=== PATIENT | male | born 1945 | race Caucasian/White ===

== ENCOUNTER → 2016-10-29 | Outpatient (CLI) | payer MEDICARE ==
[~2016-10-29] MED LIST: APIX5TAB PO; BNZ10T PO; DOCU-143 PO; FENT1PAT57 TD; FENT1PAT8 TD; FLC1T PO; FRS325T PO; FRSM20T PO; GABA-488 PO; GABA300C PO; GLIM2TAB PO; HYDR-3820 PO; HYDR1TAB66 PO; INSU100I29 SC; INSU100V5 SQ; LOSA100T28 PO; LOSA100T7 PO; MELA1TAB10 PO; METF-380 PO; METF1000 PO; METH2.5T PO; OMEP20CA12 PO; OXYC-465 PO; PRD10T PO; PRED10TA22 PO; PROP60CA PO; SIMV80TA3 PO; SPRN25T PO
--- NOTE | 2016-10-29 17:15 | Diagnostic Imaging Report ---
INDICATION: Chest tightness and chronic cough. DISCUSSION: Two views of the chest were obtained, comparison 09/09/2008. No focal consolidation, pleural fluid, or pneumothorax. Normal heart size. Postoperative changes are present within the cervical spine. IMPRESSION: 1. No acute cardiopulmonary process. Dictated by: Dictated on workstation # [id number]
== END ==
LOC: RAD 15:10
PROVIDERS: ATTEND Internal Medicine
DX: R05 Cough (principal)
CPT/HCPCS: 71020

== ENCOUNTER 2017-01-23 15:38 | Inpatient (IN) | payer MEDICARE ==
[~2017-01-23] VITALS: Ht 180.3 cm; Wt 86.2 kg
[~2017-01-23 15:38] MED LIST changes: -INSU100I29 SC; +INSU100I29 SQ
--- OUTSIDE RECORDS SUMMARY | 2017-01-23 15:43 | XMS REPORT | Continuity of Care Document ---
Author Author [facility] Organization [facility] Address Unknown Phone Unavailable Allergies Active Description Code Type Severity Reaction Onset Reported/Identified Relationship to Patient Clinical Status Yes codeine [id number] Drug Allergy Unknown N/A 08/07/2015 Yes Penicillins [id number] Drug Allergy Unknown N/A 08/07/2015 Yes Tetanus Vaccines Toxoid [id number] Drug Allergy Unknown N /A 08/07/2015 Yes Tetanus Vaccines and Toxoid [id number] Drug Allergy Unknown N/A 08/07/2015 Medications Problems Date Dx Coded Attending Type Code Diagnosis Diagnosed By 07/14/2013 OSCAR ZHONG MD Ot 250.00 DIAB REY WO COMPL, TYPE II OR UNSPEC TY 07/14/2013 OSCAR ZHONG MD Ot 272.4 HYPERLIPIDEMIA NEC/NOS 07/14/2013 OSCAR ZHONG MD Ot 285.9 ANEMIA NOS 07/14/2013 OSCAR ZHONG MD Ot 401.9 HYPERTENSION NOS 07/14/2013 OSCAR ZHONG MD Ot 456.21 ESOPH VARICE OTH DIS NOS 07/14/2013 OSCAR ZHONG MD Ot 535.41 OTHER SPECIFIED GASTRITIS, WITH HEMORRHA 07/14/2013 OSCAR ZHONG MD Ot 571.5 CIRRHOSIS OF LIVER NOS 07/14/2013 OSCAR ZHONG MD Ot 572.3 PORTAL HYPERTENSION 07/14/2013 OSCAR ZHONG MD Ot 696.1 OTHER PSORIASIS 07/14/2013 OSCAR ZHONG MD Ot 715.96 OSTEOARTHROS NOS-L/LEG 07/14/2013 OSCAR ZHONG MD Ot 789.59 OTHER ASCITES 07/14/2013 OSCAR ZHONG MD Ot E935.6 ADV EFF ANTIRHEUMATICS 07/14/2013 OSCAR ZHONG MD Ot V15.82 HISTORY OF TOBACCO USE 03/05/2014 OSCAR ZHONG MD Ot 280.9 IRON DEFIC ANEMIA NOS 03/05/2014 OSCAR ZHONG MD Ot 562.10 DIVERTICULOSIS COLON (W/O MENT OF HEMORR 03/05/2014 OSCAR ZHONG MD Ot 569.0 ANAL RECTAL POLYP 03/05/2014 OSCAR ZHONG MD Ot 600.00 HYPERTROPHY (BENIGN) OF PROSTATE W/O URI 03/05/2014 OSCAR ZHONG MD Ot V76.51 SCREEN MAL NEOP-COLON 05/03/2015 OSCAR ZHONG MD Ot V72.84 05/05/2015 OSCAR ZHONG MD, Ot V72.84 05/09/2015 GINI SILVIA CALZADA Ot M25.512 05/09/2015 GINI SILVIA CALZADA Ot M54.12 05/24/2015 GINI SILVIA CALZADA Ot M25.512 05/24/2015 SILVIA RUBALCAVA DO Ot M54.12 08/10/2015 DEVON DE SANTIAGO MD Ot D69.59 OTHER SECONDARY THROMBOCYTOPENIA 08/10/2015 DEVON DE SANTIAGO MD Ot D70.4 CYCLIC NEUTROPENIA 08/10/2015 DEVON DE SANTIAGO MD Ot E11.9 TYPE 2 DIABETES MELLITUS WITHOUT COMPLIC 08/10/2015 DEVON DE SANTIAGO MD Ot F10.21 ALCOHOL DEPENDENCE, IN REMISSION 08/10/2015 DEVON DE SANTIAGO MD Ot G83.21 MONOPLEGIA OF UPPER LIMB AFFECTING RIGHT 08/10/2015 DEVON DE SANTIAGO MD Ot K70.30 ALCOHOLIC CIRRHOSIS OF LIVER WITHOUT ASC 08/10/2015 DEVON DE SANTIAGO MD Ot R41.82 ALTERED MENTAL STATUS, UNSPECIFIED 08/10/2015 DEVON DE SANTIAGO MD Ot T42.4X1A POISONING BY BENZODIAZEPINES, ACCIDENTAL 08/10/2015 DEVON DE SANTIAGO MD Ot Z79.4 RETIREMENT (CURRENT) USE OF INSULIN 08/10/2015 DEVON DE SANTIAGO MD Ot Z98.1 ARTHRODESIS STATUS 08/13/2015 OSCAR ZHONG MD Ot D61.818 08/13/2015 OSCAR ZHONG MD Ot E11.9 08/13/2015 OSCAR ZHONG MD Ot E78.5 08/13/2015 OSCAR ZHONG MD Ot G83.21 08/13/2015 OSCAR ZHONG MD Ot I10 08/13/2015 OSCAR ZHONG MD Ot I26.92 08/13/2015 FARHEEN HAMMOND, OSCAR Duarte Ot I82.433 08/13/2015 FARHEEN HAMMOND, OSCAR Duarte Ot I82.442 08/13/2015 FARHEEN HAMMOND, OSCAR D Ot I82.493 08/13/2015 FARHEEN HAMMOND, OSCAR D Ot I82.621 08/13/2015 FARHEEN HAMMOND, OSCAR Duarte Ot K21.9 08/13/2015 FARHEEN HAMMOND, OSCAR Duarte Ot K74.4 08/13/2015 FARHEEN HAMMOND, OSCAR Duarte Ot M48.02 08/13/2015 FARHEEN HAMMOND, OSCAR Duarte Ot Z79.4 08/13/2015 FARHEEN HAMMOND, OSCAR Duarte Ot Z87.891 08/14/2015 FARHEEN HAMMOND, OSCAR Duarte Ot D61.818 08/14/2015 FRAHEEN HAMMOND, OSCAR Duarte Ot E11.9 08/14/2015 FARHEEN HAMMOND, OSCAR Duarte Ot E78.5 08/14/2015 FARHEEN HAMMOND, OSCAR Duarte Ot G83.21 08/14/2015 FARHEEN HAMMOND, OSCAR Duarte Ot I10 08/14/2015 FARHEEN HAMMOND, OSCAR Duarte Ot I26.92 08/14/2015 FARHEEN HAMMOND, OSCAR Duarte Ot I82.433 08/14/2015 FARHEEN HAMMOND, OSCAR Duarte Ot I82.442 08/14/2015 FARHEEN HAMMOND, OSCAR Duarte Ot I82.493 08/14/2015 FARHEEN HAMMOND, OSCAR Duarte Ot I82.621 08/14/2015 FARHEEN HAMMOND, OSCAR Duarte Ot K21.9 08/14/2015 FARHEEN HAMMOND, OSCAR Duarte Ot K74.4 08/14/2015 FARHEEN HAMMOND, OSCAR Duarte Ot M48.02 08/14/2015 FARHEEN HAMMOND, OSCAR Duarte Ot Z79.4 08/14/2015 FARHEEN HAMMOND, OSCAR Duarte Ot Z87.891 08/15/2015 FARHEEN HAMMOND, OSCAR Duarte Ot D61.818 08/15/2015 FARHEEN HAMMOND, OSCAR Duarte Ot E11.9 08/15/2015 FARHEEN HAMMOND, OSCAR Duarte Ot E78.5 08/15/2015 FARHEEN HAMMOND, OSCAR Duarte Ot G83.21 08/15/2015 FARHEEN HAMMOND, OSCAR Duarte Ot I10 08/15/2015 FARHEEN HAMMOND, OSCAR Duarte Ot I26.92 08/15/2015 FARHEEN HAMMOND, OSCAR Duarte Ot I82.433 08/15/2015 OSCAR ZHONG MD Ot I82.442 08/15/2015 OSCAR ZHONG MD Ot I82.493 08/15/2015 OSCAR ZHONG MD Ot I82.621 08/15/2015 OSCAR ZHONG MD Ot K21.9 08/15/2015 OSCAR ZHONG MD Ot K74.4 08/15/2015 OSCAR ZHONG MD, Ot M48.02 08/15/2015 OSCAR ZHONG MD Ot Z79.4 08/15/2015 OSCAR ZHONG MD, Ot Z87.891 08/15/2015 OSCAR ZHONG MD, Ot D61.818 OTHER PANCYTOPENIA 08/15/2015 OSCAR ZHONG MD Ot E11.9 TYPE 2 DIABETES MELLITUS WITHOUT COMPLIC 08/15/2015 OSCAR ZHONG MD Ot E78.5 HYPERLIPIDEMIA, UNSPECIFIED 08/15/2015 OSCAR ZHONG MD Ot F10.21 ALCOHOL DEPENDENCE, IN REMISSION 08/15/2015 OSCAR ZHONG MD Ot G83.21 MONOPLEGIA OF UPPER LIMB AFFECTING RIGHT 08/15/2015 OSCAR ZHONG MD Ot I10 ESSENTIAL (PRIMARY) HYPERTENSION 08/15/2015 OSCAR ZHONG MD Ot I26.92 SADDLE EMBOLUS OF PULMONARY ARTERY W/O A 08/15/2015 OSCAR ZHONG MD Ot I82.433 ACUTE EMBOLISM AND THROMBOSIS OF POPLITE 08/15/2015 OSCAR ZHONG MD Ot I82.442 ACUTE EMBOLISM AND THROMBOSIS OF LEFT TI 08/15/2015 OSCAR ZHONG MD Ot I82.493 ACUTE EMBOLISM AND THOMBOS OF DEEP VEIN 08/15/2015 OSCAR ZHONG MD Ot I82.621 ACUTE EMBOLISM AND THROMBOSIS OF DEEP VE 08/15/2015 OSCAR ZHONG MD Ot K21.9 GASTRO-ESOPHAGEAL REFLUX DISEASE WITHOUT 08/15/2015 OSCAR ZHONG MD Ot K74.4 SECONDARY BILIARY CIRRHOSIS 08/15/2015 OSCAR ZHONG MD Ot M48.02 SPINAL STENOSIS, CERVICAL REGION 08/15/2015 OSCAR ZHONG MD Ot 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 08/15/2015 OSCAR ZHONG MD Ot Z87.891 PERSONAL HISTORY OF NICOTINE DEPENDENCE 11/30/2015 Ot R06.02 SHORTNESS OF BREATH 11/30/2015 Ot R07.9 CHEST PAIN, UNSPECIFIED 12/06/2015 OSCAR ZHONG MD Ot V72.84 EXAM PRE-OPERATIVE NOS 12/06/2015 SILVIA RUBALCAVA DO Ot M25.512 PAIN IN LEFT SHOULDER 12/06/2015 SILVIA RUBALCAVA DO Ot M54.12 RADICULOPATHY, CERVICAL REGION 12/06/2015 Ot R06.02 SHORTNESS OF BREATH 12/06/2015 Ot R07.9 CHEST PAIN, UNSPECIFIED 10/31/2016 OSCAR ZHONG MD Ot R05 COUGH 11/09/2016 OSCAR ZHONG MD Ot R05 COUGH Procedures Code Description Performed By Performed On 45.16 07/14/2013 Results Encounters ACCT No. Visit Date/Time Discharge Status Pt. Type Provider Facility Loc./Unit Complaint [id number] 08/11/2015 10:22:00 2015 10:50:00 DIS Inpatient OSCAR ZHONG MD Via [address] [id number] 08/07/2015 17:54:00 2015 10:30:00 DIS Inpatient DEVON DE SANTIAGO MD Via [address] DEHYDRATION, WEAKNESS [id number] 05/05/2015 09:21:00 2014 23:59:59 CLS Outpatient SILVIA RUBALCAVA DO [facility] RAD [id number] 03/05/2014 07:14:00 2013 23:59:59 [id number]/2014 09:13:00 2013 23:59:59 CLS Outpatient OSCAR ZHONG MD [facility] PREOP [id number] 07/11/2013 16:39:00 2012 16:15:00 DIS Inpatient OSCAR ZHONG MD Via [address] [id number] 11/18/2012 18:48:00 2012 23:59:59 CLS Outpatient [id number] 10/29/2016 15:10:00 ACT Outpatient OSCAR ZHONG MD [facility] CHRONIC COUGH [id number] 08/11/2015 09:03:00 Document Registration
--- OUTSIDE RECORDS SUMMARY | 2017-01-23 15:43 | XMS REPORT ---
Author [facility] [employer] Address Unknown Phone Unavailable Care Team Providers Care Candy Polisher Name Role Phone REMA ARANA CP Unavailable Allergies No Known Allergies Problems Problem Type Condition Code Onset Dates Condition Status Assessment Encounter for immunization Z23 Active Medications No Known Medications Procedures Procedure Coding System Code Date SINGLE IMMUNIZATION ADMIN CPT-4 01369 May 12, 2015 PCV 13 CPT-4 04637 May 12, 2015 Results No Known Results Immunizations Vaccine Administration Date PCV 13 May 12, 2015 Summary Purpose eClinicalWorks Submission
[2017-01-23 15:50] VITALS: BP 137/78
[2017-01-23] MEDS ORDERED: ACETAMINOPHEN 325 MG TABLET/CAPLET (TYLENOL) PO PRN (16:15)
[2017-01-23] MEDS ORDERED: PIPERACILLIN/TAZOBACTAM 4.5 GM/NS100 ML IVPB IV NR ×2 (16:15)
[2017-01-23] MEDS ORDERED: oxyCODONE/APAP 5/325MG (PERCOCET 5) TABLET PO PRN (16:30)
[2017-01-23] MEDS ORDERED: EPLE50TA3 PO (16:31)
[2017-01-23] MEDS ORDERED: BUME1TAB4 PO (16:31)
[2017-01-23] MEDS ORDERED: OXYC-465 PO (16:34)
[2017-01-23 16:35] LABS: BASOPHILS % (AUTO) 0 % (0-10); EOSINOPHILS # (AUTO) 0.4 10^3/uL (0.0-0.3); EOSINOPHILS % (AUTO) 5 % (0-10); LYMPHOCYTES # (AUTO) 0.8 X 10^3 (1.0-4.0); LYMPHOCYTES % (AUTO) 11 % (12-44); MEAN CORPUSCULAR HEMOGLOBIN 28 PG (25-34); MEAN CORPUSCULAR HGB CONC 32 G/DL (32-36); MEAN CORPUSCULAR VOLUME 88 FL (80-99); MEAN PLATELET VOLUME 10.1 FL (7.4-10.4); MONOCYTES # (AUTO) 0.8 X 10^3 (0.0-1.0); MONOCYTES % (AUTO) 11 % (0-12); NEUTROPHILS # (AUTO) 5.1 X 10^3 (1.8-7.8); NEUTROPHILS % (AUTO) 72 % (42-75); PLATELET COUNT 77 10^3/uL (130-400); RED BLOOD COUNT 4.31 10^6/uL (4.35-5.85); WHITE BLOOD COUNT 7.1 10^3/uL (4.3-11.0)
[2017-01-23 16:50] LABS: ALANINE AMINOTRANSFERASE 18 U/L (0-55); ALBUMIN 3.3 GM/DL (3.2-4.5); ANION GAP 9 MMOL/L (5-14); ASPARTATE AMINO TRANSFERASE 25 U/L (5-34); BILIRUBIN,TOTAL 1.1 MG/DL (0.1-1.0); BLOOD UREA NITROGEN 8 MG/DL (7-18); BUN/CREATININE RATIO 8; CALCIUM 9.2 MG/DL (8.5-10.1); CARBON DIOXIDE 27 MMOL/L (21-32); CHLORIDE 98 MMOL/L (98-107); CHOLESTEROL 121 MG/DL (< 200); CREATININE SERUM 1.04 MG/DL (0.60-1.30); DIRECT LDL 55 MG/DL (1-129); GFR ESTIMATED > 60; GLUCOSE 173 MG/DL (70-105); POTASSIUM 4.2 MMOL/L (3.6-5.0); SODIUM 134 MMOL/L (135-145); TRIGLYCERIDES 127 MG/DL (<150); VLDL CHOLESTEROL 25 MG/DL (5-40)
[2017-01-23] MEDS: LACTATED RINGERS 1,000 ML IV SCH (16:57)
[2017-01-23] MEDS: PANTOPRAZOLE 40 MG (PROTONIX) TAB PO SCH (16:57)
--- NOTE | 2017-01-23 17:04 | History & Physical-Hospitalist ---
HPI History of Present Illness: HPI/Chief Complaint Mr. Zuniga is a 71-year-old white male in his usual state of health up until 48 hours ago he noted increased generalized abdominal pain. Last night he had chills after sleeping most of the day having to get under covers despite the hot weather. He slept most of yesterday and today. He presented to my office this afternoon reporting a little bit of apple juice and very little to eat or drink otherwise over the past 36 hours. He denies any bright red blood per rectum melena constipation or diarrhea. He does have a past history of cirrhosis with a distant past history of alcoholism. Is been 30 years since his last beer. He is hepatitis C negative he denies increased abdominal girth and has no past history of spontaneous bacterial peritonitis. Date Seen 01/23/17 Time Seen by Provider: 15:30 Attending Physician Oscar Zhong MD PCP Oscar Zhong MD Referring Physician Date of Admission Jan 23, 2017 at 15:38 Home Medications & Allergies Home Medications Reviewed patient Home Medication Reconciliation Form Allergies Allergies Coded Allergies Penicillins (Verified Allergy, Unknown, 08/07/15) Tetanus Vaccines & Toxoid (Verified Allergy, Unknown, 08/07/15) codeine (Verified Allergy, Unknown, 08/07/15) Past Iidregh-Mgpyjn-Xaexig Hx Patient Social History Alcohol Use: Denies Use Recreational Drug Use: No Smoking Status: Former Smoker Former smoker/When Quit: Jul 15, 1995 Physical Abuse Screen: No Sexual Abuse: No Recent Foreign Travel: No Contact w/other who traveled: No Recent Hopitalizations: No Recent Infectious Disease Expo: No Immunizations Up To Date Date of Pneumonia Vaccine: Feb 12, 2013 Date of Influenza Vaccine: Apr 14, 2015 Seasonal Allergies Seasonal Allergies: No Surgeries HX Surgeries: Yes (RIGHT KNEE SCOPE X3, CERVICAL SPINE FUSION 07/27/15 Dr Griffiths ) Respiratory Hx Respiratory Disorders: No Cardiovascular Hx Cardiovascular Disorders: Yes Cardiac Disorders: High Cholesterol, Hypertension Neurological Hx Neurological Disorders: Yes Neurological Disorders: Neuropathy Reproductive System Hx Reproductive Disorders: No Sexually Transmitted Disease: No HIV/AIDS: No Genitourinary Hx Genitourinary Disorders: No Gastrointestinal Hx Gastrointestinal Disorders: Yes Gastrointestinal Disorders: Gastroesophageal Reflux, Ulcer, Cirrhosis Musculoskeletal Hx Musculoskeletal Disorders: Yes (neck) Musculoskeletal Disorders: Degenerate Disk Disease Endocrine Hx Endocrine Disorders: Yes Endocrine Disorders: Diabetes, Insulin dep HEENT HX ENT Disorders: No Cancer Hx Cancer: No Psychosocial Hx Psychiatric Problems: No Integumentary HX Skin/Integumentary Disorder: Yes Skin/Integumentary Disorders: Psoriasis Blood Transfusions Hx Blood Disorders: No Adverse Reaction to a Blood Tr: No Family Medical History Family Hx: Arthritis 19 MOTHER, Onset:Unknown Cataracts 19 MOTHER, Onset:Unknown Diabetes mellitus MATERNAL GRANDMOTHER, Onset:Unknown FH: blindness MATERNAL GRANDMOTHER, Onset:Unknown (BLINDNESS DUE TO DIABETES) FH: lung cancer 19 MOTHER, Onset:Unknown FH: stroke MATERNAL GRANDMOTHER, Onset:Unknown Review of Systems Constitutional: chills, diaphoresis, weakness Respiratory: No cough, dyspnea on exertion, No hemoptysis, No orthopnea, No phlegm, No short of breath, No stridor, No wheezing Gastrointestinal: No no symptoms reported, see HPI, No constipation, No diarrhea, No dysphagia, No hematemesis, No heartburn, No jaundice, loss of appetite, No melena, nausea, No vomiting Physical Exam Physical Exam Vital Signs Vital Sign - Last 12Hours 01/23/17 15:50 Temp 101.5 Pulse 82 Resp 24 B/P (MAP) 137/78 Pulse Ox 98 O2 Delivery Room Air Capillary Refill : General Appearance: Chronically ill, Moderate Distress Respiratory: Chest Non Tender, Lungs Clear, Normal Breath Sounds, No Accessory Muscle Use, No Respiratory Distress Cardiovascular: Regular Rate, Rhythm, No Edema, No Gallop, No JVD, No Murmur, Normal Peripheral Pulses Gastrointestinal: Normal Bowel Sounds, No Organomegaly, No Pulsatile Mass, Soft , Other (see below under rectal examination) Rectal: Other (generalized abdominal pain to palpation. The abdomen is soft no mass or organomegaly is noted. Bowel sounds are present) Extremity: Normal Capillary Refill, Normal Inspection, Normal Range of Motion, Non Tender, No Calf Tenderness, No Pedal Edema Neurologic/Psychiatric: Alert, Oriented x3 Results Results/Procedures Lab Laboratory Tests 01/23/17 16:15 Assessment/Plan Admission Diagnosis 1. Fever with abdominal pain concerning for intra-abdominal infection. Zosyn has been initiated and will likely proceed with CT scan of the abdomen in the morning. Examination does not suggest significant ascites but cannot rule out spontaneous bacterial peritonitis. 2. Cirrhosis of the liver with history of portal hypertension. 3. Dehydration secondary to number 1. 4. Type II diabetes mellitus for now clear liquid diet and sliding scale insulin. Clinical Quality Measures DVT/VTE Risk/Contraindication: Risk Factor Score Per Nursin RFS Level Per Nursing on Admit: 2=Moderate OSCAR ZHONG MD Jan 23, 2017 17:04
[2017-01-23 17:21] LABS: BAND NEUTROPHILS 1 %; BASOPHILS % (MANUAL) 0 %; EOSINOPHILS % (MANUAL) 4 %; LYMPHOCYTES % (MANUAL) 23 %; NEUTROPHILS % (MANUAL) 66 %
[2017-01-23] MEDS ORDERED: ONDANSETRON 4 MG/2 ML (SDV) Z0FRAN IVP PRN (17:30)
[2017-01-23] MEDS ORDERED: CATHETER FLUSH 10 ML SYR IV PRN (17:30)
[2017-01-23] MEDS ORDERED: IOHEXOL 350 MG/ML 100 ML (OMNIPAQUE 350) VIAL IV ONE (17:45)
[2017-01-23] MEDS ORDERED: NS 100 ML (IVPB) BAG IV ONE (17:45)
--- NOTE | 2017-01-23 18:35 | Diagnostic Imaging Report ---
PROCEDURE: CT of the abdomen with and without contrast and CT of the pelvis with contrast. TECHNIQUE: Precontrast acquisitions were acquired through the abdomen. Multiple contiguous axial images were obtained through the abdomen and pelvis after administration of intravenous contrast. INDICATION: Nausea, fever and weakness. FINDINGS: The heart size is normal. The lung bases are clear. There is some mucosal thickening in the distal esophagus. There is diffuse mucosal thickening of the stomach. There is a macronodular cirrhotic appearance of the liver. No focal liver lesions are appreciated. There is mild distention of the gallbladder. There is splenomegaly with the spleen measuring up to 18 cm. There is perihepatic and perisplenic ascites. The pancreas and adrenal glands are unremarkable. There are some perisplenic varices. Kidneys are unremarkable. The aorta is nonaneurysmal. Bowel gas pattern is nonspecific. There is moderate pelvic ascites. Bladder is unremarkable. There is no pelvic mass or adenopathy. There are degenerative changes in the spine. IMPRESSION: 1. Macronodular cirrhotic appearance of the liver with splenomegaly and splenic varices. Additionally, there is ascites. Findings are compatible with cirrhosis and likely portal venous hypertension. 2. Diffuse mucosal thickening of the stomach suspect for gastritis. Additionally, there is mucosal thickening in the distal esophagus. This may reflect reflux esophagitis however underlying mass certainly cannot be excluded. Recommend clinical correlation, and if warranted followup with endoscopy. 3. No other acute abnormality in the abdomen or pelvis. Dictated by: Dictated on workstation # [id number]
[2017-01-23 19:47] VITALS: BP 116/70
[2017-01-23] MEDS ORDERED: PREGABALIN 75 MG (LYRICA) CAP PO SCH (21:00)
[2017-01-23] MEDS: inSUlin (REGULAR) HUMAN 1 UNIT/0.01 ML (CHARGE PER UNIT) SC SCH (21:38)
[2017-01-23] MEDS: oxyCODONE/APAP 10/325MG (PERCOCET 10) TABLET PO PRN (21:38)
[2017-01-23] MEDS: PIPERACILLIN/TAZOBACTAM 4.5 GM/NS 100 ML IVPB IV SCH ×2 (22:50)
[2017-01-24] VITALS (7 sets, daily range): BP systolic 110–130; BP diastolic 61–68
[2017-01-24] MEDS: LACTATED RINGERS 1,000 ML IV SCH ×3 (00:25→12:15)
[2017-01-24 00:41] LABS: BILIRUBIN,URINE NEGATIVE (NEGATIVE); KETONES,URINE NEGATIVE (NEGATIVE); LEUKOCYTE ESTERASE ,URINE NEGATIVE (NEGATIVE); NITRITE,URINE NEGATIVE (NEGATIVE); PH,URINE 6.5 (5-9); PROTEIN,URINE NEGATIVE (NEGATIVE); UROBILINOGEN,URINE NORMAL (NORMAL)
[2017-01-24 00:47] LABS: SQUAMOUS EPITHELIAL CELL,UR RARE /HPF
[2017-01-24] MEDS: inSUlin (REGULAR) HUMAN 1 UNIT/0.01 ML (CHARGE PER UNIT) SC SCH ×4 (05:12→21:31)
[2017-01-24] MEDS: PIPERACILLIN/TAZOBACTAM 4.5 GM/NS 100 ML IVPB IV SCH ×6 (06:19→23:00)
[2017-01-24] MEDS: PANTOPRAZOLE 40 MG (PROTONIX) TAB PO SCH (06:19)
--- NOTE | 2017-01-24 08:35 | Progress Note-Hospitalist ---
Subjective HPI/CC On Admission Date Seen by Provider: Jan 24, 2017 Time Seen by Provider: 08:00 Mr. Zuniga is a 71-year-old white male in his usual state of health up until 48 hours ago he noted increased generalized abdominal pain. Last night he had chills after sleeping most of the day having to get under covers despite the hot weather. He slept most of yesterday and today. He presented to my office this afternoon reporting a little bit of apple juice and very little to eat or drink otherwise over the past 36 hours. He denies any bright red blood per rectum melena constipation or diarrhea. He does have a past history of cirrhosis with a distant past history of alcoholism. Is been 30 years since his last beer. He is hepatitis C negative he denies increased abdominal girth and has no past history of spontaneous bacterial peritonitis. Subjective/Events-last exam Mr. Zuniga is feeling better this morning. MAXIMUM TEMPERATURE was 101.5 without Reiger's last night. His temperature is down currently. He reports feeling well hungry this morning and denies nausea. His abdominal pain has improved. Objective Exam Vital Signs Vital Sign - Last 12Hours 01/23/17 15:50 Temp 101.5 Pulse 82 Resp 24 B/P (MAP) 137/78 Pulse Ox 98 O2 Delivery Room Air Capillary Refill : General Appearance: No Apparent Distress, Chronically ill Respiratory: Chest Non Tender, Lungs Clear, Normal Breath Sounds, No Accessory Muscle Use, No Respiratory Distress Cardiovascular: Regular Rate, Rhythm, No Edema, No Gallop, No JVD, No Murmur, Normal Peripheral Pulses Gastrointestinal: Normal Bowel Sounds, No Organomegaly, No Pulsatile Mass, Soft , Other (abdomen is no more distended than his norm and soft. He does have epigastric pain to palpation with some guarding elsewhere no significant pain is noted.) Neurologic/Psychiatric: Alert, Oriented x3 Results/Procedures Lab Laboratory Tests 01/23/17 16:15 Assessment/Plan Assessment and Plan Assess & Plan/Chief Complaint 1. Abdominal pain and fever improving. Considering the ascites was noted on CT examination suspect spontaneous bacterial peritonitis. We'll continue to treat conservatively as long as he is responding. The risk apparent centesis likely outweigh benefits so we'll hold for now. Some gastric thickening and distal esophageal thickening was noted as well but I suspect are related to varices or gastritis. The patient is not having any difficulty with swallowing and is not having any problems with bleeding. Considering his multiple medical comorbidities will hold EGD evaluation at this time. Will advance diet DC IV fluids later today and continue Zosyn/ 2. Cirrhosis likely due to distant past history of alcoholism is been 30 years since this patient's last alcoholic beverage. He has been tested for hepatitis C and is been negative in the past. OSCAR ZHONG MD Jan 24, 2017 08:35
[2017-01-24] MEDS: oxyCODONE/APAP 10/325MG (PERCOCET 10) TABLET PO PRN ×2 (10:33→20:18)
[2017-01-24] MEDS: inSUlin DETERMIR 1 UNIT/0.01 ML (LEVEMIR) CHARGE PER UNIT SQ SCH (21:32)
[2017-01-25] VITALS: BP 113/58
[2017-01-25 04:00] VITALS: BP 117/77
[2017-01-25] MEDS: inSUlin (REGULAR) HUMAN 1 UNIT/0.01 ML (CHARGE PER UNIT) SC SCH ×4 (05:50→21:59)
[2017-01-25 06:14] LABS: BASOPHILS % (AUTO) 1 % (0-10); EOSINOPHILS # (AUTO) 0.5 10^3/uL (0.0-0.3); EOSINOPHILS % (AUTO) 13 % (0-10); LYMPHOCYTES # (AUTO) 0.7 X 10^3 (1.0-4.0); LYMPHOCYTES % (AUTO) 17 % (12-44); MEAN CORPUSCULAR HEMOGLOBIN 28 PG (25-34); MEAN CORPUSCULAR HGB CONC 32 G/DL (32-36); MEAN CORPUSCULAR VOLUME 89 FL (80-99); MEAN PLATELET VOLUME 10.4 FL (7.4-10.4); MONOCYTES # (AUTO) 0.6 X 10^3 (0.0-1.0); MONOCYTES % (AUTO) 15 % (0-12); NEUTROPHILS # (AUTO) 2.3 X 10^3 (1.8-7.8); NEUTROPHILS % (AUTO) 56 % (42-75); PLATELET COUNT 86 10^3/uL (130-400); RED BLOOD COUNT 4.01 10^6/uL (4.35-5.85); RED CELL DISTRIBUTION WIDTH 14.9 % (10.0-14.5); WHITE BLOOD COUNT 4.1 10^3/uL (4.3-11.0)
[2017-01-25] MEDS: PANTOPRAZOLE 40 MG (PROTONIX) TAB PO SCH (06:24)
[2017-01-25] MEDS: PIPERACILLIN/TAZOBACTAM 4.5 GM/NS 100 ML IVPB IV SCH ×6 (06:25→22:08)
[2017-01-25 08:05] VITALS: BP 111/68
[2017-01-25 12:30] VITALS: BP 119/69
[2017-01-25] MEDS ORDERED: LEVO500T2 PO (12:47)
--- NOTE | 2017-01-25 12:52 | Progress Note-Hospitalist ---
Subjective HPI/CC On Admission Date Seen by Provider: Jan 25, 2017 Time Seen by Provider: 12:30 Mr. Zuniga is a 71-year-old white male in his usual state of health up until 48 hours ago he noted increased generalized abdominal pain. Last night he had chills after sleeping most of the day having to get under covers despite the hot weather. He slept most of yesterday and today. He presented to my office this afternoon reporting a little bit of apple juice and very little to eat or drink otherwise over the past 36 hours. He denies any bright red blood per rectum melena constipation or diarrhea. He does have a past history of cirrhosis with a distant past history of alcoholism. Is been 30 years since his last beer. He is hepatitis C negative he denies increased abdominal girth and has no past history of spontaneous bacterial peritonitis. Subjective/Events-last exam patient reports MAXIMUM TEMPERATURE of 101.2 without chills yesterday. Nausea has improved he still reports poor appetite. Has bowels have not moved yet. He reports some mild intermittent right upper quadrant pain. Objective Exam Vital Signs Vital Sign - Last 12Hours 01/23/17 15:50 Temp 101.5 Pulse 82 Resp 24 B/P (MAP) 137/78 Pulse Ox 98 O2 Delivery Room Air Capillary Refill : General Appearance: No Apparent Distress, Chronically ill Respiratory: Chest Non Tender, Lungs Clear, Normal Breath Sounds, No Accessory Muscle Use, No Respiratory Distress Cardiovascular: Regular Rate, Rhythm, No Edema, No Gallop, No JVD, No Murmur, Normal Peripheral Pulses Gastrointestinal: Normal Bowel Sounds, No Organomegaly, No Pulsatile Mass, Soft , Other (mild right upper quadrant tenderness to palpation without rebound or guarding.) Results/Procedures Lab Laboratory Tests 01/25/17 05:38 Assessment/Plan Assessment and Plan Assess & Plan/Chief Complaint 1. Abdominal pain and fever improving. Considering the ascites was noted on CT examination suspect spontaneous bacterial peritonitis versus gastritis. We' ll continue to treat conservatively as long as he is responding. The risk apparent centesis likely outweigh benefits so we'll hold for now. Some gastric thickening and distal esophageal thickening was noted as well but I suspect are related to varices or gastritis. The patient is not having any difficulty with swallowing and is not having any problems with bleeding. Considering his multiple medical comorbidities will hold EGD evaluation at this time. Will continue Zosyn Jose Antonio discharge tomorrow if continuing to progress. Discharge orders have been taken care of. We'll have the patient resume his regular home medications and 5 days of Levaquin have been electronically sent to his pharmacy. 2. Cirrhosis likely due to distant past history of alcoholism is been 30 years since this patient's last alcoholic beverage. He has been tested for hepatitis C and is been negative in the past. OSCAR ZHONG MD Jan 25, 2017 12:52
[2017-01-25 15:35] VITALS: BP 125/71
[2017-01-25 20:50] VITALS: BP 127/69
[2017-01-25] MEDS: oxyCODONE/APAP 10/325MG (PERCOCET 10) TABLET PO PRN (22:07)
[2017-01-25] MEDS: inSUlin DETERMIR 1 UNIT/0.01 ML (LEVEMIR) CHARGE PER UNIT SQ SCH (22:08)
[2017-01-26] VITALS: BP 126/69
[2017-01-26 04:00] VITALS: BP 112/67
[2017-01-26] MEDS: inSUlin (REGULAR) HUMAN 1 UNIT/0.01 ML (CHARGE PER UNIT) SC SCH (06:24)
[2017-01-26] MEDS: PANTOPRAZOLE 40 MG (PROTONIX) TAB PO SCH (06:25)
[2017-01-26] MEDS: PIPERACILLIN/TAZOBACTAM 4.5 GM/NS 100 ML IVPB IV SCH ×2 (06:26)
[2017-01-26 08:00] VITALS: BP 126/73
--- NOTE | 2017-01-26 10:01 | Discharge Summary-Hospitalist ---
Diagnosis/Chief Complaint Date of Admission Jan 23, 2017 at 3:38 pm Date of Discharge January 26, 2017 at 10 a.m. Discharge Date: Jan 26, 2017 Discharge Time: 10:00 Admission Diagnosis 1. Fever with abdominal pain concerning for intra-abdominal infection. Zosyn has been initiated and will likely proceed with CT scan of the abdomen in the morning. Examination does not suggest significant ascites but cannot rule out spontaneous bacterial peritonitis. 2. Cirrhosis of the liver with history of portal hypertension. 3. Dehydration secondary to number 1. 4. Type II diabetes mellitus for now clear liquid diet and sliding scale insulin. Discharge Diagnosis 1. Spontaneous bacterial peritonitis 2. Cirrhosis of the liver with portal hypertension and ascites. 3. Thrombocytopenia secondary to number 2 4.type II diabetes Reason Hospital Visit/Course Mr. Zuniga is a 71-year-old white male in his usual state of health up until 48 hours ago he noted increased generalized abdominal pain. Last night he had chills after sleeping most of the day having to get under covers despite the hot weather. He slept most of yesterday and today. He presented to my office this afternoon reporting a little bit of apple juice and very little to eat or drink otherwise over the past 36 hours. He denies any bright red blood per rectum melena constipation or diarrhea. He does have a past history of cirrhosis with a distant past history of alcoholism. Is been 30 years since his last beer. He is hepatitis C negative he denies increased abdominal girth and has no past history of spontaneous bacterial peritonitis. Discharge Summary Discharge Physical Examination Allergies: Coded Allergies: Penicillins (Verified Allergy, Unknown, 08/07/15) Tetanus Vaccines & Toxoid (Verified Allergy, Unknown, 08/07/15) codeine (Verified Allergy, Unknown, 08/07/15) Vitals & I&Os Vital Signs Date Time Temp Pulse Resp B/P (MAP) Pulse Ox O2 Delivery O2 Flow Rate FiO2 01/26/17 08:02 Room Air 01/26/17 08:00 98.9 76 20 126/73 97 Hospital Course Labs (last 24 hrs) Laboratory Tests 01/25/17 11:29: Glucometer 125H 01/25/17 15:59: Glucometer 120H 01/25/17 21:56: Glucometer 130H 01/26/17 06:01: Glucometer 74 Microbiology 01/23/17 Blood Culture - Preliminary, Resulted No growth Pending Labs Laboratory Tests 01/26/17 06:01: Glucometer 74 Discharge Home Medications: Active Scripts Active Levaquin (Levofloxacin) 500 Mg Tablet 500 Mg PO DAILY 5 Days Reported Oxycodone-Acetaminophen 10-325 (Oxycodone HCl/Acetaminophen) 1 Each Tablet 1-2 Tab PO Q6H PRN Eplerenone 50 Mg Tablet 50 Mg PO DAILY Bumetanide 1 Mg Tablet 1 Mg PO DAILY Levemir Flextouch (Insulin Detemir) 100 Unit/1 Ml Insuln.pen 30 Units SQ HS Omeprazole 20 Mg Capsule.dr 20 Mg PO DAILY Metformin HCl 1,000 Mg Tablet 500 Mg PO BID TAKES 1/2 (1,000MG) TABLET Instructions to patient/family Please see electonic discharge instructions given to patient. Clinical Quality Measures DVT/VTE Risk/Contraindication: Risk Factor Score Per Nursin RFS Level Per Nursing on Admit: 2=Moderate DEVON DE SANTIAGO MD Jan 26, 2017 10:01 am
[2017-01-26 10:25] VITALS: BP 126/73
== END 2017-01-26 10:25 | disposition home or self-care (01) | DRG 372 ==
LOC: 4TH 15:38
PROVIDERS: ADMIT Internal Medicine; ATTEND Internal Medicine
DX: K65.2 Spontaneous bacterial peritonitis (principal); K70.31 Alcoholic cirrhosis of liver with ascites; K76.6 Portal hypertension; E86.0 Dehydration; E11.40 Type 2 diabetes mellitus with diabetic neuropathy, unspecified; D69.59 Other secondary thrombocytopenia; I10 Essential (primary) hypertension; E78.00 Pure hypercholesterolemia, unspecified; F10.21 Alcohol dependence, in remission; Z87.891 Personal history of nicotine dependence; Z79.4 Long term (current) use of insulin; Z98.1 Arthrodesis status; K21.9 Gastro-esophageal reflux disease without esophagitis; Z87.11 Personal history of peptic ulcer disease
CPT/HCPCS: 36415; 74178; 80053; 80061; 81000; 82962; 83690; 85007; 85025; 85027; 87040

== ENCOUNTER → 2018-12-16 | Outpatient (CLI) | payer MEDICARE ==
[~2018-12-16] MED LIST changes: +BUME1TAB4 PO; +EPLE50TA3 PO; +LEVO500T2 PO; -LOSA100T28 PO; +LOSA100T57 PO; +METF-399 PO; -METF1000 PO
== END ==
LOC: LAB 14:52
PROVIDERS: ATTEND Internal Medicine
DX: R05 Cough (principal); R09.3 Abnormal sputum
CPT/HCPCS: 87070; 87205

== ENCOUNTER → 2019-03-11 | Outpatient (CLI) | payer MEDICARE ==
[~2019-03-11] MED LIST changes: -BUME1TAB4 PO; +BUME1TAB8 PO; +OMEP20CA13 PO
--- NOTE | 2019-03-11 15:15 | Diagnostic Imaging Report ---
INDICATION: SOB, PERSISTENT SPUTUM R/O PNEUMONIA COMPARISON: 10/29/2016. FINDINGS: Frontal and lateral views of the chest demonstrate normal heart size and pulmonary vascularity. The lungs are clear. There are no signs of infiltrate, pleural effusions or pneumothoraces. The visualized osseous structures show no acute abnormalities. IMPRESSION: 1. No acute process. No signs of infiltrates, effusions or pneumothoraces. Dictated by: Dictated on workstation # [id number]
== END ==
LOC: RAD 14:42
PROVIDERS: ATTEND Internal Medicine
DX: R06.02 Shortness of breath (principal); R09.3 Abnormal sputum
CPT/HCPCS: 71046

== ENCOUNTER → 2019-04-20 | Outpatient (CLI) | payer MEDICARE ==
--- NOTE | 2019-04-20 13:54 | Diagnostic Imaging Report ---
INDICATION: Chronic cough PA and lateral chest Heart size and pulmonary vascularity are normal. Lungs are clear. There are no effusions or pneumothoraces. IMPRESSION: Negative chest. Dictated by: Dictated on workstation # [id number]
== END ==
LOC: RAD 13:40
PROVIDERS: ATTEND Internal Medicine
DX: R05 Cough (principal)
CPT/HCPCS: 71046

== ENCOUNTER → 2019-06-08 | Outpatient (CLI) | payer MEDICARE ==
--- NOTE | 2019-06-08 15:50 | Diagnostic Imaging Report ---
INDICATION: Pain status post fall. COMPARISON: None. FINDINGS: Frontal and lateral views of the thoracic spine were obtained. Visualization of the upper thoracic spine is limited on the lateral projection. Alignment and vertebral heights are maintained. There is no fracture or destructive process. There are no large paraspinal masses. Moderate multilevel degenerative disease is noted in the thoracic spine. Limited views of the lungs are clear. IMPRESSION: 1. No acute fracture or dislocation of the thoracic spine. 2. Moderate multilevel degenerative changes. Dictated by: Dictated on workstation # [id number]
== END ==
LOC: RAD 15:07
PROVIDERS: ATTEND Internal Medicine
DX: M47.814 Spondylosis without myelopathy or radiculopathy, thoracic region (principal); W19.XXXA Unspecified fall, initial encounter
CPT/HCPCS: 72072

== ENCOUNTER 2019-12-16 11:28 | Inpatient (IN) | payer MEDICARE ==
[~2019-12-16] VITALS: Ht 180.3 cm; Wt 94.1 kg
[~2019-12-16 11:28] MED LIST changes: +ACHYD1T PO; +GLIM2TAB4 PO; -HYDR-3820 PO; -OMEP20CA13 PO; +OMEP20CA18 PO
--- NOTE | 2019-12-16 12:30 | NUR ---
TJ RAMIREZ admitted to room 404-1, with an admitting diagnosis of PORTAL HYPERTENSION AND CIRRHOSIS, on 12/16/[address] ZHONG'S OFFICE via AMBULATORY, accompanied by SELF. TJ RAMIREZ introduced to surroundings, call light, bed controls, phone, TV, temperature control, lights, meal times, smoking policy, visitor policy, side rail policy, bathrooms and showers. Patient Rights given to patient in the handbook. TJ RAMIREZ verbalizes understanding that [facility] is not responsible for the loss or damage to any personal effects or valuables that are kept in the patients possession during their hospitalization. The following Patient Care Plans were discussed with the PATIENT: Discharge Planning, CIRRHOSIS and KNOWLEDGE DEFICIT. TJ RAMIREZ verbalizes understanding of Interdisciplinary Patient Education. Patient and/or family were informed about the Rapid Response Team and its purpose.
--- NOTE | 2019-12-16 13:14 | Diagnostic Imaging Report ---
PROCEDURE: CT abdomen and pelvis without contrast. TECHNIQUE: Multiple contiguous axial images were obtained through the abdomen and pelvis without the use of intravenous contrast. Auto Exposure Controls were utilized during the CT exam to meet ALARA standards for radiation dose reduction. INDICATION: Abdominal pain, cirrhosis, and ascites. COMPARISON: Comparison is made to study of 01/23/2017. FINDINGS: There has been slight increase in nodularity, likely due to lymph nodes in the epiphrenic fat seen in the lower chest. There is thickening of the wall of the distal esophagus. This could represent varices. There is nodular surface contour to the liver with heterogeneous low density, most pronounced in the right lobe. This is similar to the previous study but is difficult to further assess without contrast. [id number] abdominopelvic ascites is again noted. No pancreatic or adrenal gland lesion is identified. There is mild splenomegaly. Numerous venous collaterals are seen in the retroperitoneum. Unenhanced images of the kidneys remain unremarkable. Bladder is unremarkable. There is no evidence of walled fluid collection or localized inflammation. IMPRESSION: Findings remain compatible with hepatic cirrhosis and portal venous hypertension with [id number] abdominopelvic ascites, splenomegaly, and numerous portosystemic venous collaterals. There is heterogeneous low density in the liver, most pronounced in the right lobe which could be related to regenerating nodules. This is incompletely evaluated on the noncontrasted study. If further assessment is warranted, consideration could be given to MRI. Dictated by: Dictated on workstation # [id number]
[2019-12-16 13:19] VITALS: BP 137/71
[2019-12-16 13:55] LABS: BASOPHILS % (AUTO) 1 % (0-10); EOSINOPHILS # (AUTO) 0.4 10^3/uL (0.0-0.3); EOSINOPHILS % (AUTO) 11 % (0-10); HEMATOCRIT 39 % (40-54); HEMOGLOBIN 12.8 G/DL (13.3-17.7); LYMPHOCYTES # (AUTO) 0.8 X 10^3 (1.0-4.0); LYMPHOCYTES % (AUTO) 21 % (12-44); MEAN CORPUSCULAR HEMOGLOBIN 30 PG (25-34); MEAN CORPUSCULAR HGB CONC 33 G/DL (32-36); MEAN CORPUSCULAR VOLUME 91 FL (80-99); MEAN PLATELET VOLUME 10.2 FL (7.4-10.4); MONOCYTES # (AUTO) 0.8 X 10^3 (0.0-1.0); MONOCYTES % (AUTO) 20 % (0-12); NEUTROPHILS # (AUTO) 1.9 X 10^3 (1.8-7.8); NEUTROPHILS % (AUTO) 48 % (42-75); PLATELET COUNT 76 10^3/uL (130-400); RED CELL DISTRIBUTION WIDTH 16.2 % (10.0-14.5); WHITE BLOOD COUNT 3.9 10^3/uL (4.3-11.0)
[2019-12-16 14:07] LABS: ALBUMIN 3.5 GM/DL (3.2-4.5); CHLORIDE 99 MMOL/L (98-107); POTASSIUM 3.6 MMOL/L (3.6-5.0); SODIUM 137 MMOL/L (135-145)
[2019-12-16 14:08] LABS: AMMONIA 55 UMOL/L (11-32); CALCIUM 9.4 MG/DL (8.5-10.1)
[2019-12-16 14:09] LABS: GLUCOSE 80 MG/DL (70-105)
[2019-12-16 14:10] LABS: TOTAL PROTEIN 7.3 GM/DL (6.4-8.2)
[2019-12-16 14:11] LABS: BILIRUBIN,TOTAL 1.5 MG/DL (0.1-1.0); CARBON DIOXIDE 31 MMOL/L (21-32)
[2019-12-16 14:13] LABS: ALKALINE PHOSPHATASE 137 U/L (40-136); CREATININE SERUM 1.15 MG/DL (0.60-1.30); GFR ESTIMATED > 60
[2019-12-16 14:14] LABS: BUN/CREATININE RATIO 9
[2019-12-16 14:16] LABS: ALANINE AMINOTRANSFERASE 20 U/L (0-55)
[2019-12-16 14:19] LABS: EOSINOPHILS % (MANUAL) 15 %; LYMPHOCYTES % (MANUAL) 16 %; MONOCYTES % (MANUAL) 15 %; NEUTROPHILS % (MANUAL) 54 %; RBC MORPH NORMAL
--- NOTE | 2019-12-16 14:38 | NUR ---
CALLED DR ZHONG'S OFFICE TO ENQUIRE ABOUT THE REST OF THE ORDERS SUCH ADMISSION, DIET, CONSULT FOR DR JOHANSEN, AND IV.
--- OUTSIDE RECORDS SUMMARY | 2019-12-16 15:16 | XMS REPORT ---
Author Author [employer] administrative office manager at[employer] Organization [employer] [facility] [employer] Address [address] [address] Care Team Providers Care Automation Tender Name Role Phone REMA ARANA Unavailable Unavailable OSCAR ZHONG Unavailable OSCAR ZHONG Unavailable OSCAR ZHONG Unavailable OSCAR ZHONG MD Unavailable Unavailable OSCAR ZHONG MD Unavailable Unavailable OSCAR ZHONG MD Unavailable Unavailable ANYI HAMMOND, DEVON Talely Unavailable Unavailable ANYI HAMMOND, DEVON Talley Unavailable Unavailable SILVIA RUBALCAVA DO Unavailable Unavailable OSCAR ZHONG MD Unavailable Unavailable Unavailable Unavailable Unavailable Unavailable Unavailable Unavailable Allergies Normalized Allergy Reported Date of Reaction(s) Care Provider Facility Allergy Type classification allergen Allergy Onset no information Unclassified NO KNOWN DRUG NO KNOWN DRUG [facility] (4 sources.) ALLERGIES ALLERGIES LEISURE [facility] ([address]) DA (21 Unclassified Tetanus 08-07-2015 - no information OSCAR ZHONG , Not Available sources.) Vaccines and (65099) Toxoid Medications The data below is from unstructured sourcesNo Known Medications Problems Active Problems Problem Normalized Date Last Normalized Normalized Provider Fa cility Classification Problem(s) Recorded Problem Problem Sta tus Duration Other lower Abnormal 12-16-2019 - Episodic Active FEROZ KENNEDY Via respiratory sputum MD Emanuel disease (9 Hospital - sources.) [place] ([address]) 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 Active DEVON REDMAN Via d disorders cirrhosis of MD Jenae [place] (21 sources.) liver with Hospital - ascites [place] Translations: (227[address]) [ ALCOHOL DEPENDENCE, IN REMISSION, ALCOHOLIC CIRRHOSIS OF LIVER WITHOUT ASC, ALCOHOL DEPENDENCE, IN REMISSION] Other Arthrodesis 12-16-2019 - Episodic Active DEVON Mayo Via connective status MD Robert DE [place]AGOi tissue disease Hospital - (15 sources.) [place] ([address]) Nonspecific Chest pain, 12-16-2019 - Episodic Active OSCAR CUENCA , [facility] Via chest pain (4 unspecified MD Emanuel sources.) Hospital - [place] ([address]) Other liver Cirrhosis of Chronic Active [facility]SCAR ZHONG [facility] Via diseases (4 liver without MD Emanuel sources.) mention of Hospital - alcohol [place] ([address]) Fracture of Closed Episodic Active [facility] lower limb (4 fracture of [place] [facility] of sources.) one or more [place] phalanges of County ([address]) foot Translations: [ NONDISP FX OF PROXIMAL PHALANX OF LEFT LESSER TOE(S), INIT] Other lower Cough 12-16-2019 - Episodic Active OSCAR ZHONG [facility] Via respiratory MD Emanuel disease (18 Hospital - sources.) [place] ([address]) Diseases of Cyclic Chronic Active DEVON [facility] Via white blood neutropenia MD Jenae [place] cells (3 Hospital - sources.) [place] ([address]) Fluid and Dehydration 12-16-2019 - Episodic Active OSCAR CHEW N , Not Available electrolyte (19778) disorders (12 sources.) Diverticulosis Diverticulosis Chronic Active OSCAR ZHONG [facility] Via and of colon MD Emanuel diverticulitis (without Hospital - (3 sources.) mention of [place] hemorrhage) ([address]) Essential Essential 12-16-2019 - Chronic Active OSCAR ZHONG [facility] Via hypertension (primary) MD Emanuel (19 sources.) hypertension Hospital - Translations: [place] [ HYPERTENSION (40522) NOS] Esophageal Gastro-esophag 12-16-2019 - Chronic Active OSCAR TRINIDAD [facility] Via disorders (19 eal reflux MD Emanuel sources.) disease Hospital - without [place] esophagitis (364[address]) Translations: [ ESOPH VARICE OTH DIS NOS] Gastrointestin Gastrointestin 12-16-2019 - Episodic Active OLIVER ZHONG [facility] Via al hemorrhage al hemorrhage, MD Emanuel (5 sources.) unspecified Hospital - [place] ([address]) Disorders of Hyperlipidemia 12-16-2019 - Chronic Active OSCAR ZHONG [facility] Via lipid , unspecified MD Emanuel metabolism (10 Translations: Hospital - sources.) [ [place] HYPERLIPIDEMIA (07191) NEC/NOS, PURE HYPERCHOLESTER OLEMIA, UNSPECIFIED] Hyperplasia of Hypertrophy Chronic Active OSCAR ZHONG , [facility] Via prostate (3 (benign) of MD Emanuel sources.) prostate Hospital - without [place] urinary ([address]) obstruction and other lower urinary tract symptom (LUTS) Deficiency and Iron 12-16-2019 - Episodic Active OSCAR RUSS SON , [facility] Via other anemia deficiency MD Emanuel (5 sources.) anemia, Hospital - unspecified [place] ([address]) Other group home 12-16-2019 - Episodic Active DEVON [facility] Via aftercare (18 (current) use MD Jenae [place] sources.) of insulin Hospital - [place] ([address]) Paralysis (6 Monoplegia of Chronic Active DEVON [facility] V ia sources.) upper limb MD Jenae [place] affecting Hospital - right dominant [place] side ([address]) Osteoarthritis Osteoarthrosis Chronic Active OSCAR ZHNOG , [facility] Via (4 sources.) , unspecified MD Emanuel whether Hospital - [facility] or [place] localized, ([address]) lower leg Deficiency and Other Chronic Active OSCAR ZHONG , [facility] Via other anemia pancytopenia MD Emanuel (3 sources.) Hospital - [place] ([address]) Other Other Chronic Active OSCAR ZHONG , [facility] 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 (4 [place] sources.) (31953) Coagulation Other 12-16-2019 - Episodic Active DEVON [facility] Via and secondary MD Jenae [place] hemorrhagic thrombocytopen Hospital - disorders (12 ia [place] sources.) (85048) Other Pain in left 12-16-2019 - Episodic Active SILVIA PARMAR AM [facility] Via non-traumatic shoulder , DO Jenae joint Hospital - disorders (4 [place] sources.) ([address]476) Screening and Personal 12-16-2019 - Episodic Active OSCAR PIKE , [facility] Via history of history of MD Emanuel mental health nicotine Hospital - and substance dependence [place] abuse codes Translations: (57843) (19 sources.) [ HISTORY OF TOBACCO USE] Gastroduodenal Personal 12-16-2019 - Episodic Active OSCAR RUSS SON , Not Available ulcer (except history of (77646) hemorrhage) peptic ulcer (12 sources.) disease Other liver Portal 12-16-2019 - Chronic Active OSCAR ZHONG , [facility] Via diseases (14 hypertension MD Emanuel sources.) Hospital [facility] (22992) Other liver Portal Chronic Active OSCAR ZHONG , [facility] Vi a diseases (4 hypertension MD Emanuel sources.) Hospital [facility] (36561) Pulmonary Saddle embolus Chronic Active OSCAR ZHONG [facility] Via heart disease of pulmonary MD Emanuel (3 sources.) artery without Hospital - acute cor [place] pulmonale (23857) Other liver Secondary Chronic Active OSCAR ZHONG [facility] V ia diseases (3 biliary MD Emanuel sources.) cirrhosis Hospital [facility] (03473) Other lower Shortness of 12-16-2019 - Episodic Active OSCAR PEGUERO , [facility] Via respiratory breath MD Emanuel disease (7 Hospital - sources.) [place] ([address]) Spondylosis; Spinal 12-16-2019 - Episodic Active SILVIA PARMAR AM [facility] Via intervertebral stenosis, , DO Jenae disc cervical Hospital - disorders; region [place] other back Translations: (18348) problems (7 [ sources.) RADICULOPATHY, CERVICAL REGION] Spondylosis; Spondylosis 12-16-2019 - Chronic Active OSCAR PEGUERO , [facility] Via intervertebral without MD Emanuel disc myelopathy or Hospital - disorders; radiculopathy, [place] other back thoracic (82605) problems (5 region sources.) Peritonitis Spontaneous 12-16-2019 - Episodic Active OSCAR CUENCA , Not Available and intestinal bacterial (37632) abscess (12 peritonitis sources.) Diabetes Type 2 12-16-2019 - Chronic Active FEROZ KENNEDY Via mellitus with diabetes MD Emanuel complications mellitus with Hospital - (3 sources.) diabetic [place] neuropathy, (39114) unspecified Diabetes Type 2 Chronic Active OSCAR ZHONG [facility] Via mellitus diabetes MD Emanuel without mellitus Hospital - complication without [place] (10 sources.) complications (93560) Translations: [ DIAB ERY WO COMPL, TYPE II OR UNSPEC TY] Other liver Unspecified 12-16-2019 - Chronic Active OSCAR CUENCA , [facility] Via diseases (5 cirrhosis of MD Emanuel sources.) liver [facility] (05257) External cause Unspecified 12-16-2019 - Episodic Active OSCAR BARROS , [facility] Via codes: Fall (5 fall, initial MD Emanuel sources.) encounter Hospital [facility] (53945) Past or Other Problems Problem Normalized Date Last Normalized Normalized Provider Fa cility Classification Problem(s) Recorded Problem Problem Sta tus Duration Phlebitis; Acute embolism Episodic Completed OSCAR ZHONG [facility] Via thrombophlebit and thrombosis MD Emanuel is and of popliteal Hospital - thromboembolis vein, [place] m (9 sources.) bilateral (99795) Translations: [ ACUTE EMBOLISM AND THROMBOSIS OF DEEP VE, ACUTE EMBOLISM AND THROMBOSIS OF LEFT TI, ACUTE EMBOLISM AND THOMBOS OF DEEP VEIN , ACUTE EMBOLISM AND THROMBOSIS OF DEEP VE, ACUTE EMBOLISM AND THROMBOSIS OF LEFT TI, ACUTE EMBOLISM AND THOMBOS OF DEEP VEIN ] Residual Altered mental Episodic Completed DEVON SCHMITT Via codes; status, MD Jenae [place] unclassified unspecified Hospital - (3 sources.) [place] ([address]) Anal and Anal and Episodic Completed OSCAR ZHONG [facility] Via rectal rectal polyp MD Emanuel conditions (3 Hospital - sources.) [place] ([address]75) Deficiency and Anemia, Episodic Completed FEROZ KENNEDY Via other anemia unspecified MD Emanuel (4 sources.) Hospital - [place] (18086) Adverse Antirheumatics no information no information OSCAR PEGUERO , [facility] Via effects of [antiphlogistcata [facility] medical drugs cs] causing Hospital - (4 sources.) adverse [place] effects in (87371) therapeutic use Unclassified Displaced no information no information [facility] (2 sources.) unspecified [place] [facility] of fracture of [place] unspecified County ([address]) great toe Deficiency and Iron Episodic Completed FEROZ KENNEDY Via other anemia deficiency MD Emanuel (3 sources.) anemia, Hospital - unspecified [place] ([address]11) Other Other ascites Episodic Completed FEROZ KENNEDY Via gastrointestin MD Emanuel al disorders Hospital - (4 sources.) [place] ([address]65) Gastritis and Other Episodic Completed FEROZ KENNEDY Via duodenitis (4 specified MD Emanuel sources.) gastritis, Hospital - with [place] hemorrhage (85949) Poisoning by Poisoning by no information no information KATHLEE N Not Available psychotropic benzodiazepine MD ANYI (08936) agents (2 s, accidental sources.) (unintentional ), initial encounter Poisoning by Poisoning by Episodic Completed DEVON [facility] a psychotropic benzodiazepine MD Jenae DE SANTIAGO agents (1 s, accidental Hospital - source.) (unintentional [place] ), initial (27874) encounter Disorders of Pure no information no information OSCAR CHEW N , Not Available lipid hypercholester (83811) metabolism (9 olemia, sources.) unspecified Other Special Episodic Completed FEROZ KENNEDY Via screening for screening for MD Emanuel suspected malignant Hospital - conditions neoplasms of [place] (not mental colon (58335) disorders or infectious disease) (3 sources.) Diabetes Type 2 no information no information OSCAR ZHONG , Not Available mellitus with diabetes (44839) complications mellitus with (9 sources.) diabetic neuropathy, unspecified Procedures Procedure Normalized Procedure Procedure Result Performer Facility Date 07-14-2013 ESOPHAGOGASTRODUODENOS no information no name [facility] Via Jenae COPY [EGD] W/CLOSE [facility] (04018) ESOPHAGOGASTRODUODENOS no information no name Not Jenny ilable (78701) COPY [EGD] W/CLOSE Immunizations No Information Results Test Name Value Interpretation Reference Range Date Time Fa cility (Normalized) (Normalized) (Medline Reference) laboratory on 2019-12-16 Albumin 3.5 g/dL (NEG) 3.4 - 5.4 g/dL 12-16-2019 PENDING LOCATION [Mass/Vol] 09:48-0400 [facility] (94943) ALP [Catalytic 137 U/L (H) 44 - 147 U/L 12-16-2019 PEND ING LOCATION activity/Vol] 09:48-0400 [facility] (14240) ALT [Catalytic 20 U/L (NEG) 4 - 40 U/L 12-16-2019 PENDIN G LOCATION activity/Vol] 09:48-0400 [facility] (88467) Ammonia (Unsp 55 (H) 12-16-2019 PENDING LOCA TION spec) [Mass/Vol] 09:48-0400 [facility] (11101) Anion gap 7 mmol/L (NEG) 3 - 11 mmol/L 12-16-2019 PENDING LOCATION [Moles/Vol] 09:48-0400 [facility] (13490) AST [Catalytic 70 U/L (H) 10 - 34 U/L 12-16-2019 PENDI NG LOCATION activity/Vol] 09:48-0400 [facility] (98661) Basophils (Bld) 0.0 10*3/uL (NEG) 0 - 0.3 10*3/uL 12-16-2019 PENDING LOCATION [#/Vol] 09:48-0400 [facility] (66904) Basophils/100 1 % (NEG) 0.5 - 1 % 12-16-2019 PENDING LOCATION WBC (Bld) 09:48-0400 [facility] (19901) Bilirubin 1.5 mg/dL (H) 0.1 - 1.2 mg/dL 12-16-2019 [facility] LOCATION [Mass/Vol] 09:48-0400 [facility] (21934) Calcium 9.4 mg/dL (NEG) 8.5 - 10.2 mg/dL 12-16-2019 [facility] LOCATION [Mass/Vol] 09:48-0400 [facility] (63493) Calcium 9.8 mg/dL (NEG) 8.5 - 10.2 mg/dL 12-16-2019 [facility] LOCATION [Mass/Vol] 09:48-0400 [facility] (20311) Chloride 99 mmol/L (NEG) 95 - 106 mmol/L 12-16-2019 [facility] LOCATION [Moles/Vol] 09:48-0400 [facility] (77355) CO2 [Moles/Vol] 31 mmol/L (NEG) 23 - 29 mmol/L 12-16-2019 P ENDING LOCATION 09:48-0400 [facility] (91201) Creatinine 1.15 mg/dL (NEG) 12-16-2019 PENDING LOCATI ON [Mass/Vol] 09:48-0400 [facility] (20208) Creatinine and > (no code) 12-16-2019 PENDING LOC ATION Glomerular 09:48-0400 [facility] (32924) filtration rate.predicted panel - Serum, Plasma or Blood Eosinophils 0.4 10*3/uL (H) 0.05 - 0.5 12-16-2019 PENDING LOCATION (Bld) [#/Vol] 10*3/uL 09:48-0400 [facility] (79410) Eosinophils/100 11 % (H) 1 - 4 % 12-16-2019 [facility] LOCATION WBC (Bld) 09:48-0400 [facility] (51798) Erythrocyte 16.2 % (H) 11.6 - 14.6 % 12-16-2019 [facility] LOCATION distribution 09:48-0400 [facility] (01517) width (RBC) [Ratio] Glucose 80 mg/dL (NEG) 60 - 125 mg/dL 12-16-2019 PEND[facility] LOCATION [Mass/Vol] 09:48-0400 [facility] (90265) Hematocrit (Bld) 39 % (L) 36.1 - 50.3 % 12-16-2019 P ENDING LOCATION [Volume 09:48-0400 [facility] (71338) fraction] Hemoglobin (Bld) 12.8 g/dL (L) 12.1 - 17.2 g/dL 12-16-2019 PEND[facility] LOCATION [Mass/Vol] 09:48-0400 [facility] (19857) Lymphocytes 0.8 10*3/uL (L) 0.9 - 2.9 12-16-2019 PENDING LOCATION (Bld) [#/Vol] 10*3/uL 09:48-0400 [facility] (01128) Lymphocytes/100 21 % (NEG) 20 - 40 % 12-16-2019 PENDIN G LOCATION WBC (Bld) 09:48-0400 [facility] (03808) MCH (RBC) 30 pg (NEG) 27 - 31 pg 12-16-2019 PENDING LOC ATION [Entitic mass] 09:48-0400 [facility] (67297) MCHC (RBC) 33 g/dL (NEG) 32 - 36 g/dL 12-16-2019 PENDING LOCATION [Mass/Vol] 09:48-0400 [facility] (83189) MCV (RBC) 91 (NEG) 12-16-2019 PENDING LOCATI ON [Entitic vol] 09:48-0400 [facility] (54659) Monocytes (Bld) 0.8 10*3/uL (NEG) 0.3 - 0.9 12-16-2019 PEND ING LOCATION [#/Vol] 10*3/uL 09:48-0400 [facility] (69459) Monocytes/100 20 % (H) 2 - 8 % 12-16-2019 PENDING LOCATION WBC (Bld) 09:48-0400 [facility] (90240) Neutrophils 1.9 10*3/uL (NEG) 1.7 - 7 10*3/uL 12-16-2019 [facility] LOCATION (Bld) [#/Vol] 09:48-0400 [facility] (55583) Neutrophils/100 48 % (NEG) 40 - 60 % 12-16-2019 PENDIN G LOCATION WBC (Bld) 09:48-0400 [facility] (68819) Platelet mean 10.2 (NEG) 12-16-2019 PENDING LOCA TION volume (Bld) 09:48-0400 [facility] (93461) [Entitic vol] Platelets (Bld) 76 10*3/uL (L) 150 - 450 12-16-2019 [facility] LOCATION [#/Vol] 10*3/uL 09:48-0400 [facility] (14567) Potassium 3.6 mmol/L (NEG) 3.7 - 5.2 mmol/L 12-16-2019 PEND [facility] LOCATION [Moles/Vol] 09:48-0400 [facility] (97174) Protein 7.3 g/dL (NEG) 6.4 - 8.3 g/dL 12-16-2019 PENDING LOCATION [Mass/Vol] 09:48-0400 [facility] (79936) RBC (Bld) 4.34 10*6/uL (L) 4.2 - 6.1 12-16-2019 PENDING L OCATION [#/Vol] 10*6/uL 09:48-0400 [facility] (30835) Sodium 137 mmol/L (NEG) 135 - 145 mmol/L 12-16-2019 PEND [facility] LOCATION [Moles/Vol] 09:48-0400 [facility] (94064) Urea nitrogen 10 mg/dL (NEG) 7 - 20 mg/dL 12-16-2019 [facility] LOCATION [Mass/Vol] 09:48-0400 [facility] (48151) Urea 9 mg/mg (no code) 6 - 22 mg/mg 12-16-2019 PENDING L OCATION nitrogen/Creatin 09:48-0400 [facility] (48137) ine [Mass ratio] WBC (Bld) 3.9 10*3/uL (L) 3.5 - 10.5 12-16-2019 PENDING L OCATION [#/Vol] 10*3/uL 09:48-0400 [facility] (00403) Vital Signs The data below is from unstructured sources Vital Response Date/Time Temperature Source Tympanic 08/10/2015 10:45am Pulse Rate (adult) 75 bpm (60 - 90) 08/10/2015 10:45am Respiratory Rate 18 bpm (12 - 24) 08/10/2015 10:45am O2 Sat by Pulse Oximetry 92 % (88 - 100) 08/10/2015 10:45am Blood Pressure 154/75 mm Hg 08/10/2015 10:45am Blood Pressure Mean 101 mm Hg 08/10/2015 6:00am Pain Pain Intensity 0 2015 9:00am Height (Centimeters) 178.0 cm 08/07/2015 7:12pm Weight (Calculated Grams) 931490.000 gm 08/07/2015 7:30pm Weight (Kilograms) 100.0 kg 08/07/2015 7:30pm Height 5 ft 10.08 in Weight 220 lb Body Mass Index 31.0 kg/m^2 Vital Response Date/Time Temperature Source Tympanic 08/15/2015 10:54am Pulse Rate (adult) 74 bpm (60 - 90) 08/15/2015 10:54am Respiratory Rate 18 bpm (12 - 24) 08/15/2015 10:54am O2 Sat by Pulse Oximetry 92 % (88 - 100) 08/15/2015 10:54am Blood Pressure 111/69 mm Hg 08/15/2015 10:54am Blood Pressure Mean 83 mm Hg 08/15/2015 9:59am Pain Pain Intensity 1 2015 9:59am Height (Centimeters) 177.8 cm 08/11/2015 11:01am Weight (Calculated Grams) 36536.000 gm 08/15/2015 5:27am Weight (Kilograms) 95.7 kg 08/15/2015 5:27am Calculated BMI 29.98 11:01am Vital Response Date/Time Temperature (Fahrenheit) 97.6 degree s F (97.6 - 99.5) Temperature (Calculated Celsius) 36. 94846 degrees C (36.4 - 37.5) Temperature Source Tympanic Pulse Rate (adult) 66 bpm (60 - 90) Respiratory Rate 20 bpm (12 - 24) O2 Sat by Pulse Oximetry 96 % (88 - 100) Blood Pressure 138/90 mm Hg Pain Pain Intensity 0 Height (Feet) 5 feet Height (Inches) 9.00 inches Height (Calculated Centimeters) 175. 687450 cm Weight (Pounds) 228 pounds Weight (Ounces) 4.0 oz Weight (Calculated Grams) 601740.459 gm Weight (Calculated Kilograms) 103.53 2459 kilograms Calculated BMI 33.67 Vital Response Date/Time Temperature (Fahrenheit) 98.9 degree s F (97.6 - 99.5) 01/26/2017 10:25am Temperature (Calculated Celsius) 37. 04319 degrees C (36.4 - 37.5) 01/26/2017 8:00am Temperature Source Temporal 01/26/2017 10:25am Pulse Rate (adult) 76 bpm (60 - 90) 01/26/2017 10:25am Respiratory Rate 20 bpm (12 - 24) 01/26/2017 10:25am O2 Sat by Pulse Oximetry 97 % (88 - 100) 01/26/2017 10:25am Blood Pressure 126/73 mm Hg 01/26/2017 10:25am Blood Pressure Mean 90 mm Hg 01/26/2017 8:00am Pain Numeric Pain Scale 0-No Pain 01/26/2017 10:25am Height (Feet) 5 feet 06/2017 4:05pm Height (Inches) 11.00 inches 01/23/2017 4:05pm Height (Calculated Centimeters) 180. 121615 cm 01/23/2017 4:05pm Weight (Pounds) 190 pounds 01/23/2017 4:05pm Weight (Ounces) 2.0 oz 0 01/23/2017 4:05pm Weight (Calculated Grams) 06962.25 gm 01/23/2017 4:05pm Weight (Calculated Kilograms) 86.239 250 kilograms 01/23/2017 4:05pm Calculated BMI 26.5 01/12 4:05pm Vital Response Date/Time Temperature (Fahrenheit) 98.9 degree s F (97.6 - 99.5) 01/26/2017 10:25am Temperature (Calculated Celsius) 37. 52130 degrees C (36.4 - 37.5) 01/26/2017 8:00am Temperature Source Temporal 01/26/2017 10:25am Pulse Rate (adult) 76 bpm (60 - 90) 01/26/2017 10:25am Respiratory Rate 20 bpm (12 - 24) 01/26/2017 10:25am O2 Sat by Pulse Oximetry 97 % (88 - 100) 01/26/2017 10:25am Blood Pressure 126/73 mm Hg 01/26/2017 10:25am Blood Pressure Mean 90 mm Hg 01/26/2017 8:00am Pain Numeric Pain Scale 0-No Pain 01/26/2017 10:25am Height (Feet) 5 feet 06/2017 4:05pm Height (Inches) 11.00 inches 01/23/2017 4:05pm Height (Calculated Centimeters) 180. 842865 cm 01/23/2017 4:05pm Weight (Pounds) 190 pounds 01/23/2017 4:05pm Weight (Ounces) 2.0 oz 0 01/23/2017 4:05pm Weight (Calculated Grams) 39267.25 gm 01/23/2017 4:05pm Weight (Calculated Kilograms) 86.239 250 kilograms 01/23/2017 4:05pm Calculated BMI 26.5 01/12 4:05pm Interventions No Information Plan of Treatment The data below is from unstructured sources Discharge Date 08/10/15 10:30am Disposition 01 HOME, SELF-CARE Instructions/Education Provided Jair wang (DC) Prescriptions See Medication Section Referrals OSCAR ZHONG MD (Unspeci fied) - Address: [address] [place] [address], [address] [place] [phone] Reason(s) for Referral: MAKE APPOINTMENT FOR 1-2 WEEKS WHEN YOU HAND SIZER PRESCRIPTION SILVIA RUBALCAVA DO (Unspecified) - Address: [address] [place], [place] [id number] Reason(s) for Referral: MAKE APPOINTMENT FOR 2 WEEKS (Unspecified) - PT (Physical Medicine and Rehab) - Reason(s) for Referral: C 3-7 POSTERIOR LAMINECTOMY AND POSTERIOR FUSION WEAKNESS IN RIGHT UPPER EXTREMEITY, NECK AND SHOULDER PAIN OT (Physical Medicine and Rehab) - 08/16/15 Reason(s) for Referral: C 3-7 POSTERIOR LAMINECTOMY AND POSTERIOR FUSION WEAKNESS IN UPPER EXTREMENTY, NECK AND SHOULDER PAIN Additional Instructions/Education PI CK UP PRESCRIPTIONS AT DR ZHONG OFF FOR FENTANYL 25MCG PATCH EVERY 72 HOURS MAKE APPOINTMENT FOR 1-2 WEEKS FOLLOW UP WITH DR AMIN MAKE APPOINTMENT WITH ORTHO FOLLOW UP IN 2 WEEKS LOW CARB DIET WHILE ON PREDNISONE OUTPATIENT PT AT [facility] OT AT [facility] KEEP INCISION CLEAN, MAY SHOWER, Care Plan and Goals Discharge Date 08/15/15 10:50am Disposition 01 HOME, SELF-CARE Instructions/Education Provided Pulm onary Embolism (DC) Prescriptions See Medication Section Referrals ERNST HANSEN DO (Unspeci fied) - 09/06/15 Address: [address] [place] [address] [facility] [place] [address] Reason(s) for Referral: 3:00 PM OSCAR ZHONG MD (Unspecified) - 08/22/15 Address: [facility] IESHA CHRISTOPHER, [facility] [address] [place] [phone] Reason(s) for Referral: 10:15 AM Saturday08-22-[address]S OFF[address] TO HAND SIZER ELIQUIS SAMPLES TAKE 10 MG BID (TWICE A DAY) THRU THIS SATURDAY THEN TAKE 5 MG BID (TWICE A DAY) TAKE 10 MG PREDNISONE TOMORROW (Saturday08-16-15) THEN STOP Care Plan and Goals Discharge Date 01/26/17 10:25am Disposition 01 HOME, SELF-CARE Instructions/Education Provided CONT RAST ANTIDIABETIC MEDS Prescriptions See Medication Section Referrals OSCAR ZHONG MD (Unspeci fied) Entered Date: 01/26/2017 9:11am Address: [facility] [address] [place] [phone] Note: FOLLOW UP WITH DR ZHONG IN ONE WEEK, CALL FOR APPOINTMENT Care Plan and Goals follow up with elena ochoa in 1 week Discharge Date 01/26/17 10:25am Disposition 01 HOME, SELF-CARE Instructions/Education Provided CONT RAST ANTIDIABETIC MEDS Prescriptions See Medication Section Referrals OSCAR ZHONG MD (Unspeci fied) Entered Date: 01/26/2017 9:11am Address: [facility] IESHA CHRISTOPHER, [facility] [address] [place] [phone] Note: FOLLOW UP WITH DR ZHONG IN ONE WEEK, CALL FOR APPOINTMENT Care Plan and Goals follow up with elena ochoa in 1 week Goals No Information Social History No Information Functional Status The data below is from unstructured sources Query Response Date Jaun rded Patient Orientation Normal For Age August 09, 2015 1:51pm Patient Orientation Person Place Time Situation August 10, 2015 1:06pm Comprehension Ability Understands Co ncepts August 10, 2015 8:00am Query Response Date Jaun rded Patient Orientation Person Place Time Eyes Open Situation Normal For Age August 12, 2015 9:56am Patient Orientation Person Place Time Situation August 15, 2015 11:58am Comprehension Ability Understands Co ncepts August 12, 2015 9:00pm Query Response Date Jaun rded Patient Orientation Person Place Time Situation January 26, 2017 8:02am Comprehension Ability Understands Co ncepts January 26, 2017 8:02am Query Response Date Jaun rded Patient Orientation Person Place Time Situation January 26, 2017 8:02am Comprehension Ability Understands Co ncepts January 26, 2017 8:02am Mental Status No Information Encounters Encounter Normalized Encounter Encounter Diagnosis Care Provi shirley Organization Date Type 12-16-2019 Evaluation and no information OSCAR ZHONG MD (no [facility] Via Jenae management of phone) [facility] inpatient (no phone) 01-23-2017 Evaluation and no information OSCAR ZHONG MD (no [facility] - management of phone) [facility] 01-26-2017 inpatient (no phone) 08-11-2015 Evaluation and no information no name no organ ization name - management of 08-15-2015 inpatient 08-07-2015 Evaluation and no information no name no organ ization name - management of 08-10-2015 inpatient 07-11-2013 Evaluation and no information no name no organ ization name - management of 07-14-2013 inpatient 07-11-2013 Evaluation and no information no name no organ ization name - management of 07-14-2013 inpatient NEGATED Patient encounter no information no name no or ganization name 10-29-2016 03-05-2014 Patient encounter no information no name no or ganization name - 03-05-2014 06-08-2019 Patient encounter no information OSCAR ZHONG MD (no [facility] procedure phone) [facility] (no phone) 04-20-2019 Patient encounter no information no name no or ganization name procedure 04-20-2019 Patient encounter no information OSCAR ZHONG MD (no [facility] procedure phone) [facility] (no phone) 03-11-2019 Patient encounter no information OSCAR ZHONG MD (no [facility] procedure phone) [facility] (no phone) 12-16-2018 Patient encounter no information OSCAR ZHONG MD (no [facility] procedure phone) [facility] (no phone) 12-09-2018 Patient encounter no information OSCAR ZHONG MD (no [facility] procedure phone) [facility] (no phone) 09-13-2018 Patient encounter no information no name no or ganization name - procedure 09-13-2018 10-29-2016 Patient encounter no information OSCAR ZHONG MD (no [facility] procedure phone) [facility] (no phone) 08-11-2015 Patient encounter no information OSCAR ZHONG MD (no [facility] procedure phone) [facility] (no phone) 05-05-2015 Patient encounter no information no name no or ganization name procedure 05-05-2015 Patient encounter no information SILVIA RUBALCAVA (no [facility] procedure phone) [facility] (no phone) 03-05-2014 Patient encounter no information no name no or ganization name - procedure 03-05-2014 no information Pre-operative no name no organization name examination, unspecified Medical Equipment No Information Payers Normalized Payer Value Private Health Insurance no information Summary Purpose eClinicalWorks Submission Advance Directives Directive Response Recor ded Date/Time Advance Directives No 6:35pm Health Care Power of Thermometer Production Worker No 08/07/15 6:35pm Organ Donor Yes 08/07/15 6:35pm Resuscitation Status Full Code 08/07/15 6:35pm Directive Response Recor ded Date/Time Advance Directives No 11:59am Health Care Power of Thermometer Production Worker No 08/11/15 11:59am Organ Donor Yes 08/11/15 11:59am Resuscitation Status Full Code 08/11/15 11:59am Directive Response Recor ded Date/Time Advance Directives No 7:38am Health Care Power of Thermometer Production Worker No 03/05/14 7:38am Organ Donor Yes 03/05/14 7:38am Resuscitation Status Full Code 03/05/14 7:38am Directive Response Recor ded Date/Time Advance Directives No 3:52pm Health Care Power of Thermometer Production Worker No 01/23/17 3:52pm Organ Donor Yes 01/23/17 3:52pm Resuscitation Status Full Code 01/23/17 3:52pm Discharge Instructions No hospital discharge instructions.No hospital discharge instructions.No hospital discharge instructions.No hospital discharge instructions.No hospital discharge instructions.No hospital discharge instruction information available. Additional Source Comments This clinical document has been generated using [employer] software that has been certified by the Office of the National Coordinator for Health Information Technology (ONC 15.99.04.3023.Diam.[id number]) and the National Committee for Devulcanizer Operator (NCQA, as an eMeasure certified technology). FOR RECORDS PERTAINING TO PATIENTS WHO ARE OR HAVE BEEN ENROLLED IN A CHEMICAL D EPENDENCY/SUBSTANCE ABUSE PROGRAM, SOME INFORMATION MAY BE OMITTED. This clinica l summary was aggregated from multiple sources. Caution should be exercised in using it in the provision of clinical care. This summary normalizes information from multiple sources, and as a consequence, information in this document may ma terially change the coding, format and clinical context of patient data. In jaskaran tion, data may be omitted in some cases. CLINICAL DECISIONS SHOULD BE BASED ON T HE PRIMARY CLINICAL RECORDS. [facility]. provides no warranty or guara ntee of the accuracy or completeness of information in this document.The followi information is based on time limited clinical information
--- OUTSIDE RECORDS SUMMARY | 2019-12-16 15:16 | XMS REPORT | Continuity of Care Document ---
Author Organization Unknown Address Unknown Phone Unavailable Allergies Active Description Code Type Severity Reaction Onset Reported/Identified Relationship to Patient Clinical Status Yes NO KNOWN DRUG ALLERGIES UNKNOWN NO KNOWN DRUG ALLERG Yes codeine [id number] Drug Allergy Unknown N/A 08/07/2015 Yes Penicillins [id number] Drug Aller gy Unknown N/A 08/07/2015 Yes Tetanus Vaccines Toxoid [id number] Drug Allergy Unknown N/A 08/07/2015 Yes Tetanus Vaccines and Toxoid [id number] Drug Allergy Unknown N/A 08/07/2015 Medications Medication Packaging Start Date St op Date Route Dosage Sig NORMAL SALINE 1000CC IV BAG INJ 0.9 % (NS 1000CC IV BAG) ml 08/01/2017 08/01/2017 [id number] Problems Date Dx Coded Attending Type Code Diagnosis Diagnosed By 07/14/2013 OSCAR ZHONG MD Ot 250. 00 DIAB RYE WO COMPL, TYPE II OR UNSPEC TY 07/14/2013 OSCAR ZHONG MD Ot 272. 4 HYPERLIPIDEMIA NEC/NOS 07/14/2013 OSCAR ZHONG MD Ot 285. 9 ANEMIA NOS 07/14/2013 OSCAR ZHONG MD Ot 401. 9 HYPERTENSION NOS 07/14/2013 OSCAR ZHONG MD Ot 456. 21 ESOPH VARICE OTH DIS NOS 07/14/2013 OSCAR ZHONG MD Ot 535. 41 OTHER SPECIFIED GASTRITIS, WITH HEMORRHA 07/14/2013 OSCAR ZHONG MD Ot 571. 5 CIRRHOSIS OF LIVER NOS 07/14/2013 OSCAR ZHONG MD Ot 572. 3 PORTAL HYPERTENSION 07/14/2013 OSCAR ZHONG MD Ot 696. 1 OTHER PSORIASIS 07/14/2013 OSCAR ZHONG MD Ot 715. 96 OSTEOARTHROS NOS-L/LEG 07/14/2013 OSCAR ZHONG MD Ot 789. 59 OTHER ASCITES 07/14/2013 OSCAR ZHONG MD Ot E935 .6 ADV EFF ANTIRHEUMATICS 07/14/2013 OSCAR ZHONG MD Ot V15. 82 HISTORY OF TOBACCO USE 03/05/2014 OSCAR ZHONG MD Ot 280. 9 IRON DEFIC ANEMIA NOS 03/05/2014 OSCAR ZHONG MD Ot 562. 10 DIVERTICULOSIS COLON (W/O MENT OF HEMORR 03/05/2014 OSCAR ZHONG MD Ot 569. 0 ANAL RECTAL POLYP 03/05/2014 OSCAR ZHONG MD Ot 600. 00 HYPERTROPHY (BENIGN) OF PROSTATE W/O URI 03/05/2014 OSCAR ZHONG MD Ot V76. 51 SCREEN MAL NEOP-COLON 05/03/2015 OSCAR ZHONG MD Ot V72. 84 05/05/2015 OSCAR ZHONG MD, Ot V72. 84 05/09/2015 SILVIA RUBALCAVA DO Ot M25.512 05/09/2015 SILVIA RUBALCAVA DO Ot M54.12 05/24/2015 SILVIA RUBALCAVA DO Ot M25.512 05/24/2015 SILVIA RUBALCAVA DO Ot [...] 08/10/2015 DEVON DE SANTIAGO MD Ot Z79.4 LONG-TERM (CURRENT) USE OF INSULIN 08/10/2015 DEVON DE SANTIAGO MD Ot Z98.1 ARTHRODESIS STATUS 08/13/2015 OSCAR ZHONG MD Ot D61.818 08/13/2015 OSCAR ZHONG MD Ot E11. 9 08/13/2015 OSCAR ZHONG MD Ot E78. 5 08/13/2015 FARHEEN HAMMOND, OSCAR Duarte Ot G83. 21 08/13/2015 FARHEEN HAMMOND, OSCAR Duarte Ot I10 08/13/2015 FARHEEN HAMMOND, OSCAR D Ot I26. 92 08/13/2015 FARHEEN HAMMOND, OSCAR Duarte Ot I82.433 08/13/2015 FARHEEN HAMMOND, OSCAR Duarte Ot I82.442 08/13/2015 FARHEEN HAMMOND, OSCAR Duarte Ot I82.493 08/13/2015 FARHEEN HAMMOND, OSCAR Duarte Ot I82.621 08/13/2015 FARHEEN HAMMOND, OSCAR Duarte Ot K21. 9 08/13/2015 FARHEEN HAMMOND, OSCAR Duarte Ot K74. 4 08/13/2015 FARHEEN HAMMOND, OSCAR Duarte Ot M48. 02 08/13/2015 FARHEEN HAMMOND, OSCAR Duarte Ot Z79. 4 08/13/2015 FARHEEN HAMMOND, OSCAR Duarte Ot Z87.891 08/14/2015 FARHEEN HAMMOND, OSCAR Duarte Ot D61.818 08/14/2015 FARHEEN HAMMOND, OSCAR Duarte Ot E11. 9 08/14/2015 FARHEEN HAMMOND, OSCAR Duarte Ot E78. 5 08/14/2015 FARHEEN HAMMOND, OSCAR Duarte Ot G83. 21 08/14/2015 FARHEEN HAMMOND, OSCAR Duarte Ot I10 08/14/2015 FARHEEN HAMMOND, OSCAR Duarte Ot I26. 92 08/14/2015 FARHEEN HAMMOND, OSCAR Duarte Ot I82.433 08/14/2015 FARHEEN HAMMOND, OSCAR Duarte Ot I82.442 08/14/2015 FARHEEN HAMMOND, OSCAR Duarte Ot I82.493 08/14/2015 FARHEEN HAMMOND, OSCAR Duarte Ot I82.621 08/14/2015 FARHEEN HAMMOND, OSCAR Duarte Ot K21. 9 08/14/2015 FARHEEN HAMMOND, OSCAR Duarte Ot K74. 4 08/14/2015 FARHEEN HAMMOND, OSCAR Duarte Ot M48. 02 08/14/2015 FARHEEN HAMMOND, OSCAR Duarte Ot Z79. 4 08/14/2015 FARHEEN HAMMOND, OSCAR Duarte Ot Z87.891 08/15/2015 FARHEEN HAMMOND, OSCAR Duarte Ot D61.818 08/15/2015 FARHEEN HAMMOND, OSCAR Duarte Ot E11. 9 08/15/2015 FARHEEN HAMMOND, OSCAR Duarte Ot E78. 5 08/15/2015 FARHEEN HAMMOND, OSCAR Duarte Ot G83. 21 08/15/2015 FARHEEN HAMMOND, OSCAR Duarte Ot I10 08/15/2015 FARHEEN HAMMOND, OSCAR uDarte Ot I26. 92 08/15/2015 FARHEEN HAMMOND, OSCAR Duarte Ot I82.433 08/15/2015 FARHEEN HAMMOND, OSCAR Duarte Ot I82.442 08/15/2015 OSCAR ZHONG MD Ot I82.493 08/15/2015 FARHEEN HAMMOND, OSCAR Duarte Ot I82.621 08/15/2015 FARHEEN HAMMOND, OSCAR Duarte Ot K21. 9 08/15/2015 OSCAR ZHONG MD Ot K74. 4 08/15/2015 OSCAR ZHONG MD Ot M48. 02 08/15/2015 FARHEEN HAMMOND, OSCAR Duarte Ot Z79. 4 08/15/2015 FARHEEN HAMMOND, OSCAR Duarte Ot Z87.891 08/15/2015 FARHEEN HAMMOND, OSCAR Duarte Ot D61.818 OTHER PANCYTOPENIA 08/15/2015 FARHEEN HAMMOND, OSCAR Duarte Ot E11. 9 TYPE 2 DIABETES MELLITUS WITHOUT COMPLIC 08/15/2015 FARHEEN HAMMOND, OSCAR Duarte Ot E78. 5 HYPERLIPIDEMIA, UNSPECIFIED 08/15/2015 FARHEEN HAMMOND, OSCAR Duarte Ot F10. 21 ALCOHOL DEPENDENCE, IN REMISSION 08/15/2015 FARHEEN HAMMOND, OSCAR Duarte Ot G83. 21 MONOPLEGIA OF UPPER LIMB AFFECTING RIGHT 08/15/2015 FARHEEN HAMMOND, OSCAR Duarte Ot I10 ESSENTIAL (PRIMARY) HYPERTENSION 08/15/2015 OSCAR ZHONG MD Ot I26. 92 SADDLE EMBOLUS OF PULMONARY ARTERY W/O A 08/15/2015 OSCAR ZHONG MD Ot I82.433 ACUTE EMBOLISM AND THROMBOSIS OF POPLITE 08/15/2015 OSCAR ZHONG MD Ot I82.442 ACUTE EMBOLISM AND THROMBOSIS OF LEFT TI 08/15/2015 OSCAR ZHONG MD Ot I82.493 ACUTE EMBOLISM AND THOMBOS OF DEEP VEIN 08/15/2015 OSCAR ZHONG MD Ot I82.621 ACUTE EMBOLISM AND THROMBOSIS OF DEEP VE 08/15/2015 OSCAR ZHONG MD Ot K21. 9 GASTRO-ESOPHAGEAL REFLUX DISEASE WITHOUT 08/15/2015 OSCAR ZHONG MD Ot K74. 4 SECONDARY BILIARY CIRRHOSIS 08/15/2015 OSCAR ZHONG MD Ot M48. 02 SPINAL STENOSIS, CERVICAL REGION 08/15/2015 OSCAR ZHONG MD Ot Z79. 4 LONG-TERM (CURRENT) USE OF INSULIN 08/15/2015 OSCAR ZHONG MD Ot Z87.891 PERSONAL HISTORY OF NICOTINE DEPENDENCE 11/30/2015 Ot R06.02 SAM RTNESS OF BREATH 11/30/2015 Ot R07.9 CHES T PAIN, UNSPECIFIED 12/06/2015 OSCAR ZHONG MD Ot V72. 84 EXAM PRE-OPERATIVE NOS 12/06/2015 GINI CALZADASILVIA Ot M25.512 PAIN IN LEFT SHOULDER 12/06/2015 GINI DO SILVIA Gerri Ot M54.12 RADICULOPATHY, CERVICAL REGION 12/06/2015 Ot R06.02 SAM RTNESS OF BREATH 12/06/2015 Ot R07.9 CHES T PAIN, UNSPECIFIED 07/17/2016 DULCE SANTOS 726.13 PARTIAL TEAR OF ROTATOR CUFF 07/17/2016 DULCE SANTOS M75.111 INCOMPLETE ROTATR-CUFF TEAR/RUPTR OF R SHOULDER, NOT TRAUMA 10/31/2016 OSCAR ZHONG MD Ot R05 COUGH 11/09/2016 OSCAR ZHONG MD Ot R05 COUGH 01/24/2017 OSCAR ZHONG MD Ot E11. 40 TYPE 2 DIABETES MELLITUS WITH DIABETIC N 01/24/2017 OSCAR ZHONG MD Ot E78. 00 PURE HYPERCHOLESTEROLEMIA, UNSPECIFIED 01/24/2017 OSCAR ZHONG MD Ot E86. 0 DEHYDRATION 01/24/2017 OSCAR ZHONG MD Ot F10. 21 ALCOHOL DEPENDENCE, IN REMISSION 01/24/2017 OSCAR ZHONG MD Ot I10 ESSENTIAL (PRIMARY) HYPERTENSION 01/24/2017 OSCAR ZHONG MD Ot K21. 9 GASTRO-ESOPHAGEAL REFLUX DISEASE WITHOUT 01/24/2017 OSCAR ZHONG MD Ot K65. 2 SPONTANEOUS BACTERIAL PERITONITIS 01/24/2017 OSCAR ZHONG MD Ot K70. 30 ALCOHOLIC CIRRHOSIS OF LIVER WITHOUT ASC 01/24/2017 OSCAR ZHONG MD Ot Z79. 4 LONG-TERM (CURRENT) USE OF INSULIN 01/24/2017 OSCAR ZHONG MD Ot Z87. 11 PERSONAL HISTORY OF PEPTIC ULCER DISEASE 01/24/2017 OSCAR ZHONG MD Ot Z87.891 PERSONAL HISTORY OF NICOTINE DEPENDENCE 01/24/2017 OSCAR ZHONG MD Ot Z98. 1 ARTHRODESIS STATUS 01/26/2017 OSCAR ZHONG MD Ot D69. 59 OTHER SECONDARY THROMBOCYTOPENIA 01/26/2017 FARHEEN HAMMOND, OSCAR Duarte Ot E11. 40 TYPE 2 DIABETES MELLITUS WITH DIABETIC N 01/26/2017 OSCAR ZHONG MD Ot E78. 00 PURE HYPERCHOLESTEROLEMIA, UNSPECIFIED 01/26/2017 OSCAR ZHONG MD Ot E86. 0 DEHYDRATION 01/26/2017 OSCAR ZHONG MD Ot F10. 21 ALCOHOL DEPENDENCE, IN REMISSION 01/26/2017 OSCAR ZHONG MD Ot I10 ESSENTIAL (PRIMARY) HYPERTENSION 01/26/2017 OSCAR ZHONG MD Ot K21. 9 GASTRO-ESOPHAGEAL REFLUX DISEASE WITHOUT 01/26/2017 OSCAR ZHONG MD Ot K65. 2 SPONTANEOUS BACTERIAL PERITONITIS 01/26/2017 OSCAR ZHONG MD Ot K70. 30 ALCOHOLIC CIRRHOSIS OF LIVER WITHOUT ASC 01/26/2017 OSCAR ZHONG MD Ot K70. 31 ALCOHOLIC CIRRHOSIS OF LIVER WITH ASCITE 01/26/2017 SOCAR ZHONG MD Ot K76. 6 PORTAL HYPERTENSION 01/26/2017 OSCAR ZHONG MD Ot Z79. 4 GENERAL [employer]PER[employer]OR (CURRENT) USE OF INSULIN 01/26/2017 OSCAR ZHONG MD Ot Z87. 11 PERSONAL HISTORY OF PEPTIC ULCER DISEASE 01/26/2017 OSCAR ZHONG MD Ot Z87.891 PERSONAL HISTORY OF NICOTINE DEPENDENCE 01/26/2017 OSCAR ZHONG MD Ot Z98. 1 ARTHRODESIS STATUS 06/05/2017 OSCAR ZHONG MD Ot V72. 84 EXAM PRE-OPERATIVE NOS 06/05/2017 SILVIA RUBALCAVA DO Ot M25.512 PAIN IN LEFT SHOULDER 06/05/2017 SILVIA RUBALCAVA DO Ot M54.12 RADICULOPATHY, CERVICAL REGION 06/05/2017 Ot R06.02 SAM RTNESS OF BREATH 06/05/2017 Ot R07.9 CHES T PAIN, UNSPECIFIED 06/05/2017 OSCAR ZHONG MD Ot R05 COUGH 08/01/2017 Mehnaz Fry W 456.1 ESOPHAGEAL VARICES WITHOUT MENTION OF BLEEDING 08/01/2017 Mehnaz Fry W 536.2 PERSISTENT VOMITING 08/01/2017 Benjamin Fryya A 571.5 CIRRHOSIS OF LIVER WITHOUT MENTION OF ALCOHOL 08/01/2017 Mehnaz Fry W 789.5 ASCITES 08/01/2017 Mehnaz Fry W I85.00 ESOPHAGEAL VARICES WITHOUT BLEEDING 08/01/2017 Mehnaz Fry A K74.60 UNSPECIFIED CIRRHOSIS OF LIVER 08/01/2017 Mehnaz Fry W R11.10 VOMITING, UNSPECIFIED 08/01/2017 Mehnaz Fry W R18.8 OTHER ASCITES 09/13/2018 LEISURE, SANYA W 826.0 CLOSED FRACTURE OF ONE OR MORE PHALANGES OF FOOT 09/13/2018 LEISURE, SANYA W S92.40 3 DISPLACED UNSPECIFIED FRACTURE OF UNSPECIFIED GREAT TOE 09/13/2018 LEISURE, SANYA W S92.51 5A NONDISP FX OF PROXIMAL PHALANX OF LEFT LESSER TOE(S), INIT 12/09/2018 FARHEEN HAMMOND, OSCAR Duarte Ot V72. 84 EXAM PRE-OPERATIVE NOS 12/09/2018 GINI SILVIA CALZADA Ot M25.512 PAIN IN LEFT SHOULDER 12/09/2018 GINI SILVIA CALZADA Ot M54.12 RADICULOPATHY, CERVICAL REGION 12/09/2018 Ot R06.02 SAM RTNESS OF BREATH 12/09/2018 Ot R07.9 CHES T PAIN, UNSPECIFIED 12/09/2018 FARHEEN HAMMOND, OSCAR Duarte Ot R05 COUGH 12/11/2018 OSCAR ZHONG MD Ot D50. 9 IRON DEFICIENCY ANEMIA, UNSPECIFIED 12/11/2018 OSCAR ZHONG MD Ot K74. 60 UNSPECIFIED CIRRHOSIS OF LIVER 12/11/2018 OSCAR ZHONG MD Ot K76. 6 PORTAL HYPERTENSION 12/11/2018 OSCAR ZHONG MD Ot K92. 2 GASTROINTESTINAL HEMORRHAGE, UNSPECIFIED 12/15/2018 OSCAR ZHONG MD Ot D50. 9 IRON DEFICIENCY ANEMIA, UNSPECIFIED 12/15/2018 OSCAR ZHONG MD Ot K74. 60 UNSPECIFIED CIRRHOSIS OF LIVER 12/15/2018 OSCAR ZHONG MD Ot K76. 6 PORTAL HYPERTENSION 12/15/2018 OSCAR ZHONG MD Ot K92. 2 GASTROINTESTINAL HEMORRHAGE, UNSPECIFIED 12/16/2018 OSCAR ZHONG MD Ot V72. 84 EXAM PRE-OPERATIVE NOS 12/16/2018 SILVIA RUBALCAVA DO Ot M25.512 PAIN IN LEFT SHOULDER 12/16/2018 SILVIA RUBALCAVA DO Ot M54.12 RADICULOPATHY, CERVICAL REGION 12/16/2018 Ot R06.02 SAM RTNESS OF BREATH 12/16/2018 Ot R07.9 CHES T PAIN, UNSPECIFIED 12/16/2018 FARHEEN HAMMOND, OSCAR Duarte Ot R05 COUGH 12/16/2018 FARHEEN HAMMOND, OSCAR Duarte Ot D50. 9 IRON DEFICIENCY ANEMIA, UNSPECIFIED 12/16/2018 FARHEEN HAMMOND, OSCAR Duarte Ot K74. 60 UNSPECIFIED CIRRHOSIS OF LIVER 12/16/2018 FARHEEN HAMMOND, OSCAR Duarte Ot K76. 6 PORTAL HYPERTENSION 12/16/2018 FARHEEN HAMMOND, OSCAR Duarte Ot K92. 2 GASTROINTESTINAL HEMORRHAGE, UNSPECIFIED 12/23/2018 FARHEEN HAMMOND, OSCAR Duarte Ot R05 COUGH 12/23/2018 FARHEEN HAMMOND, OSCAR Duarte Ot R09. 3 ABNORMAL SPUTUM 04/24/2019 FARHEEN HAMMOND, OSCAR Duarte Ot R05 COUGH 04/26/2019 FARHEEN HAMMOND, OSCAR Duarte Ot R05 COUGH 06/10/2019 FARHEEN HAMMOND, OSCAR Duarte Ot M47.814 SPONDYLOSIS W/O MYELOPATHY OR RADICULOPA 06/10/2019 FARHEEN HAMMOND, OSCAR Duarte Ot W19.XXXA UNSPECIFIED FALL, INITIAL ENCOUNTER 07/22/2019 FARHEEN HAMMOND, OSCAR Duarte Ot R05 COUGH 07/22/2019 FARHEEN HAMMOND, OSCAR Duarte Ot R09. 3 ABNORMAL SPUTUM 07/22/2019 FARHEEN HAMMOND, OSCAR Duarte Ot R05 COUGH 07/22/2019 FARHEEN HAMMOND, OSCAR Duarte Ot R09. 3 ABNORMAL SPUTUM 07/22/2019 FARHEEN HAMMOND, OSCAR Duarte Ot R05 COUGH 07/22/2019 FARHEEN HAMMOND, OSCAR Duarte Ot R09. 3 ABNORMAL SPUTUM 09/21/2019 FARHEEN HAMMOND, OSCAR Duarte Ot M47.814 SPONDYLOSIS W/O MYELOPATHY OR RADICULOPA 09/21/2019 FARHEEN HAMMOND, OSCAR Duarte Ot W19.XXXA UNSPECIFIED FALL, INITIAL ENCOUNTER 09/21/2019 FARHEEN HAMMOND, OSCAR Duarte Ot M47.814 SPONDYLOSIS W/O MYELOPATHY OR RADICULOPA 09/21/2019 FARHEEN HAMMOND, OSCAR Duarte Ot W19.XXXA UNSPECIFIED FALL, INITIAL ENCOUNTER 09/21/2019 FARHEEN HAMMOND, OSCAR Duarte Ot M47.814 SPONDYLOSIS W/O MYELOPATHY OR RADICULOPA 09/21/2019 FARHEEN HAMMOND, OSCAR Duarte Ot W19.XXXA UNSPECIFIED FALL, INITIAL ENCOUNTER 10/15/2019 FARHEEN HAMMOND, OSCAR Duarte Ot R05 COUGH 10/15/2019 FARHEEN HAMMOND, OSCAR Duarte Ot R09. 3 ABNORMAL SPUTUM 10/15/2019 FARHEEN HAMMOND, OSCAR Duarte Ot R06. 02 SHORTNESS OF BREATH 10/15/2019 FARHEEN HAMMOND, OSCAR Duarte Ot R09. 3 ABNORMAL SPUTUM 10/21/2019 FARHEEN HAMMOND, OSCAR Duarte Ot R05 COUGH 10/21/2019 FARHEEN HAMMOND, OSCAR Duarte Ot R05 COUGH 10/21/2019 FARHEEN HAMMOND, OSCAR Duarte Ot R05 COUGH 12/16/2019 GINI CALZADA, SILVIA Talley Ot M25.512 PAIN IN LEFT SHOULDER 12/16/2019 GINI CALZADA, SILVIA Talley Ot M54.12 RADICULOPATHY, CERVICAL REGION 12/16/2019 Ot R06.02 SAM RTNESS OF BREATH 12/16/2019 Ot R07.9 CHES T PAIN, UNSPECIFIED 12/16/2019 FARHEEN HAMMOND, OSCAR Duarte Ot R05 COUGH 12/16/2019 FARHEEN HAMMOND, OSCAR Duarte Ot D50. 9 IRON DEFICIENCY ANEMIA, UNSPECIFIED 12/16/2019 FARHEEN HAMMOND, OSCAR Duarte Ot K74. 60 UNSPECIFIED CIRRHOSIS OF LIVER 12/16/2019 FARHEEN HAMMOND, OSCAR Duarte Ot K76. 6 PORTAL HYPERTENSION 12/16/2019 FARHEEN HAMMOND, OSCAR Duarte Ot K92. 2 GASTROINTESTINAL HEMORRHAGE, UNSPECIFIED 12/16/2019 FARHEEN HAMMOND, OSCAR Duarte Ot R05 COUGH 12/16/2019 FARHEEN HAMMOND, OSCAR Duarte Ot R09. 3 ABNORMAL SPUTUM 12/16/2019 FARHEEN HAMMOND, OSCAR Duarte Ot R06. 02 SHORTNESS OF BREATH 12/16/2019 FARHEEN HAMMOND, OSCAR Duarte Ot R09. 3 ABNORMAL SPUTUM 12/16/2019 FARHEEN HAMMOND, OSCAR Duarte Ot R05 COUGH 12/16/2019 FARHEEN HAMMOND, OSCAR Duarte Ot M47.814 SPONDYLOSIS W/O MYELOPATHY OR RADICULOPA 12/16/2019 FARHEEN HAMMOND, OSCAR Duarte Ot W19.XXXA UNSPECIFIED FALL, INITIAL ENCOUNTER 12/16/2019 GINI CALZADA, SILVIA Talley Ot M25.512 PAIN IN LEFT SHOULDER 12/16/2019 GINI CALZADA SILVIA Talley Ot M54.12 RADICULOPATHY, CERVICAL REGION 12/16/2019 Ot R06.02 SAM RTNESS OF BREATH 12/16/2019 Ot R07.9 CHES T PAIN, UNSPECIFIED 12/16/2019 FARHEEN HAMMOND, OSCAR Duarte Ot R05 COUGH 12/16/2019 FARHEEN HAMMOND, OSCAR Duarte Ot D50. 9 IRON DEFICIENCY ANEMIA, UNSPECIFIED 12/16/2019 FARHEEN HAMMOND, OSCAR Duarte Ot K74. 60 UNSPECIFIED CIRRHOSIS OF LIVER 12/16/2019 FARHEEN HAMMOND, OSCAR Duarte Ot K76. 6 PORTAL HYPERTENSION 12/16/2019 FARHEEN HAMMOND, OSCAR Duarte Ot K92. 2 GASTROINTESTINAL HEMORRHAGE, UNSPECIFIED 12/16/2019 FARHEEN HAMMOND, OSCAR Duarte Ot R05 COUGH 12/16/2019 FARHEEN HAMMOND, OSCAR Duarte Ot R09. 3 ABNORMAL SPUTUM 12/16/2019 FARHEEN HAMMOND, OSCAR Duarte Ot R06. 02 SHORTNESS OF BREATH 12/16/2019 FARHEEN HAMMOND, OSCAR Duarte Ot R09. 3 ABNORMAL SPUTUM 12/16/2019 FARHEEN HAMMOND, OSCAR Duarte Ot R05 COUGH 12/16/2019 FARHEEN HAMMOND, OSCAR Duarte Ot M47.814 SPONDYLOSIS W/O MYELOPATHY OR RADICULOPA 12/16/2019 FARHEEN HAMMOND, OSCAR Duarte Ot W19.XXXA UNSPECIFIED FALL, INITIAL ENCOUNTER Procedures Code Description Performed By Per sean On 45.16 ESOP HAGOGASTRODUODENOSCOPY [EGD] W/CLOSE 07/14/2013 Results Test Result Range Blood CBC with ordered manual differenti al panel - 01/23/17 16:15 Blood leukocytes automated count (number/volume) 7.1 10*3/uL 4.3-11.0 Blood erythrocytes automated count (number/volume) 4.31 10*6/uL 4.35-5.85 Venous blood hemoglobin measurement (mass/volume) 12.2 g/dL 13.3-17.7 Blood hematocrit (volume fraction) 38 % 40-54 Automated erythrocyte mean corpuscular volume 88 [ foz_us] 80-99 Automated erythrocyte mean corpuscular h emoglobin (mass per erythrocyte) 28 pg 25-34 Automated erythrocyte mean corpuscular h emoglobin concentration measurement (mass/volume) 32 g/dL 32-36 Automated erythrocyte distribution width ratio 15. 0 % 10.0- 14.5 Automated blood platelet count (count/volume) 77 1 0*3/uL 130-400 Automated blood platelet mean volume measurement 10.1 [foz_us] 7.4-10.4 Automated blood neutrophils/100 leukocytes 72 % 42-75 Automated blood lymphocytes/100 leukocytes 11 % 12-44 Blood monocytes/100 leukocytes 6 % NRG Automated blood eosinophils/100 leukocytes 5 % 0-10 Automated blood basophils/100 leukocytes 0 % 0-10 Blood neutrophils automated count (number/volume) 5.1 10*3 1.8-7.8 Blood lymphocytes automated count (number/volume) 0.8 10*3 1.0-4.0 Blood monocytes automated count (number/volume) 0. 8 10*3 0.0-1.0 Automated eosinophil count 0.4 10*3/uL 0 .0-0.3 Automated blood basophil count (count/volume) 0.0 10*3/uL 0.0-0.1 Manual blood segmented neutrophils/100 leukocytes 66 % NRG Blood band neutrophils/100 leukocytes 1 % NRG Manual blood lymphocytes/100 leukocytes 23 % NRG Manual eosinophils/100 leukocytes in nose 4 % NRG Manual blood basophils/100 leukocytes 0 % NRG Blood erythrocyte morphology finding identification NORMAL NR Comprehensive metabolic panel - 01/23/17 16:15 Serum or plasma sodium measurement (moles/volume) 134 mmol/L 135-145 Serum or plasma potassium measurement (moles/volume) 4.2 mmol/L 3.6-5.0 Serum or plasma chloride measurement (moles/volume) 98 mmol/L 98-107 Carbon dioxide 27 mmol/L 21-32 Serum or plasma anion gap determination (moles/volume) 9 mmol/L 5-14 Serum or plasma urea nitrogen measurement (mass/volume ) 8 mg/dL 7-18 Serum or plasma creatinine measurement (mass/volume) 1.04 mg/dL 0.60-1.30 Serum or plasma urea nitrogen/creatinine mass ratio 8 NRG Serum or plasma creatinine measurement w ith calculation of estimated glomerular filtration rate > NRG Serum or plasma glucose measurement (mass/volume) 173 mg/dL 70-105 Serum or plasma calcium measurement (mass/volume) 9.2 mg/dL 8.5-10.1 Serum or plasma total bilirubin measurement (mass/volu me) 1.1 mg/dL 0.1-1.0 Serum or plasma alkaline phosphatase todd surement (enzymatic activity/volume) 104 U/L 40-136 Serum or plasma aspartate aminotransfera se measurement (enzymatic activity/volume) 25 U/L 5-34 Serum or plasma alanine aminotransferase measurement (enzymatic activity/volume) 18 U/L 0-55 Serum or plasma protein measurement (mass/volume) 7.0 g/dL 6.4-8.2 Serum or plasma albumin measurement (mass/volume) 3.3 g/dL 3.2-4.5 Lipid 1996 panel - 01/23/17 16:15 Serum or plasma triglyceride measurement (mass/volume) 127 mg/dL <150 Serum or plasma cholesterol measurement (mass/volume) 121 mg/dL < 200 Serum or plasma cholesterol in HDL measurement (mass/v olume) 23 mg/dL 40-60 Cholesterol in LDL [mass/volume] in serum or plasma by direct assay 55 mg/dL 1-129 Serum or plasma cholesterol in VLDL measurement (mass/ volume) 25 mg/dL 5-40 Lipase - 01/23/17 16:15 Lipase 24 U/L 8-78 Bacterial blood culture - 01/23/17 16:15 Bacterial blood culture NG NRG Bacterial blood culture - 01/23/17 16:21 Bacterial blood culture NG NRG Capillary blood glucose measurement by g lucometer (mass/volume) - 01/23/17 21:33 Capillary blood glucose measurement by glucometer (mas s/volume) 204 mg/dL 70-110 Complete urinalysis with reflex to cultu re - 01/24/17 00:30 Urine color determination YELLOW NRG Urine clarity determination CLEAR NR G Urine pH measurement by test strip 6.5 5-9 Specific gravity of urine by test strip 1.005 1.016-1.022 Urine protein assay by test strip, semi-quantitative NEGATIVE NEGATIVE Urine glucose detection by automated test strip NE GATIVE NEGATIVE Erythrocytes detection in urine sediment by light micr oscopy NEGATIVE NEGATIVE Urine ketones detection by automated test strip NE GATIVE NEGATIVE Urine nitrite detection by test strip NEGATIVE NEGATIVE Urine total bilirubin detection by test strip NEGA TIVE NEGATIVE Urine urobilinogen measurement by automated test strip (mass/volume) NORMAL NORMAL Urine leukocyte esterase detection by dipstick NEG ATIVE NEGATIVE Automated urine sediment erythrocyte cou nt by microscopy (number/high power field) NONE NRG Automated urine sediment leukocyte count by microscopy (number/high power field) NONE NRG Bacteria detection in urine sediment by light microsco py NEGATIVE NRG Squamous epithelial cells detection in u rine sediment by light microscopy RARE NRG Crystals detection in urine sediment by light microsco py NONE NRG Casts detection in urine sediment by light microscopy NONE NRG Mucus detection in urine sediment by light microscopy NEGATIVE NRG Complete urinalysis with reflex to culture NO NRG Capillary blood glucose measurement by g lucometer (mass/volume) - 01/24/17 03:41 Capillary blood glucose measurement by glucometer (mas s/volume) 108 mg/dL 70-110 Capillary blood glucose measurement by g lucometer (mass/volume) - 01/24/17 11:11 Capillary blood glucose measurement by glucometer (mas s/volume) 218 mg/dL 70-110 Capillary blood glucose measurement by g lucometer (mass/volume) - 01/24/17 16:00 Capillary blood glucose measurement by glucometer (mas s/volume) 123 mg/dL 70-110 Capillary blood glucose measurement by g lucometer (mass/volume) - 01/24/17 21:20 Capillary blood glucose measurement by glucometer (mas s/volume) 210 mg/dL 70-110 Capillary blood glucose measurement by g lucometer (mass/volume) - 01/25/17 05:37 Capillary blood glucose measurement by glucometer (mas s/volume) 89 mg/dL 70-110 Complete blood count (CBC) with automate d white blood cell (WBC) differential - 01/25/17 05:38 Blood leukocytes automated count (number/volume) 4.1 10*3/uL 4.3-11.0 Blood erythrocytes automated count (number/volume) 4.01 10*6/uL 4.35-5.85 Venous blood hemoglobin measurement (mass/volume) 11.3 g/dL 13.3-17.7 Blood hematocrit (volume fraction) 36 % 40-54 Automated erythrocyte mean corpuscular volume 89 [ foz_us] 80-99 Automated erythrocyte mean corpuscular h emoglobin (mass per erythrocyte) 28 pg 25-34 Automated erythrocyte mean corpuscular h emoglobin concentration measurement (mass/volume) 32 g/dL 32-36 Automated erythrocyte distribution width ratio 14. 9 % 10.0- 14.5 Automated blood platelet count (count/volume) 86 1 0*3/uL 130-400 Automated blood platelet mean volume measurement 10.4 [foz_us] 7.4-10.4 Automated blood neutrophils/100 leukocytes 56 % 42-75 Automated blood lymphocytes/100 leukocytes 17 % 12-44 Blood monocytes/100 leukocytes 15 % 0-12 Automated blood eosinophils/100 leukocytes 13 % 0-10 Automated blood basophils/100 leukocytes 1 % 0-10 Blood neutrophils automated count (number/volume) 2.3 10*3 1.8-7.8 Blood lymphocytes automated count (number/volume) 0.7 10*3 1.0-4.0 Blood monocytes automated count (number/volume) 0. 6 10*3 0.0-1.0 Automated eosinophil count 0.5 10*3/uL 0 .0-0.3 Automated blood basophil count (count/volume) 0.0 10*3/uL 0.0-0.1 Capillary blood glucose measurement by g lucometer (mass/volume) - 01/25/17 11:29 Capillary blood glucose measurement by glucometer (mas s/volume) 125 mg/dL 70-110 Capillary blood glucose measurement by g lucometer (mass/volume) - 01/25/17 15:59 Capillary blood glucose measurement by glucometer (mas s/volume) 120 mg/dL 70-110 Capillary blood glucose measurement by g lucometer (mass/volume) - 01/25/17 21:56 Capillary blood glucose measurement by glucometer (mas s/volume) 130 mg/dL 70-110 Capillary blood glucose measurement by g lucometer (mass/volume) - 01/26/17 06:01 Capillary blood glucose measurement by glucometer (mas s/volume) 74 mg/dL 70-110 Ammonia - 08/01/17 15:57 Ammonia 138.00 ug/dL 31.00-123.00 [facility] - 12/09/18 11:18 Blood leukocytes automated count (number/volume) 3.6 10*3/uL 4.3-11.0 Blood erythrocytes automated count (number/volume) 4.37 10*6/uL 4.35-5.85 Venous blood hemoglobin measurement (mass/volume) 13.3 g/dL 13.3-17.7 Blood hematocrit (volume fraction) 39 % 40-54 Automated erythrocyte mean corpuscular volume 90 [ foz_us] 80-99 Automated erythrocyte mean corpuscular h emoglobin (mass per erythrocyte) 30 pg 25-34 Automated erythrocyte mean corpuscular h emoglobin concentration measurement (mass/volume) 34 g/dL 32-36 Automated erythrocyte distribution width ratio 14. 9 % 10.0- 14.5 Automated blood platelet count (count/volume) 82 1 0*3/uL 130-400 Automated blood platelet mean volume measurement 10.6 [foz_us] 7.4-10.4 Comprehensive metabolic panel - 12/09/18 11:18 Serum or plasma sodium measurement (moles/volume) 138 mmol/L 135-145 Serum or plasma potassium measurement (moles/volume) 4.0 mmol/L 3.6-5.0 Serum or plasma chloride measurement (moles/volume) 102 mmol/L 98-107 Carbon dioxide 30 mmol/L 21-32 Serum or plasma anion gap determination (moles/volume) 6 mmol/L 5-14 Serum or plasma urea nitrogen measurement (mass/volume ) 9 mg/dL 7-18 Serum or plasma creatinine measurement (mass/volume) 1.24 mg/dL 0.60-1.30 Serum or plasma urea nitrogen/creatinine mass ratio 7 NRG Serum or plasma creatinine measurement w ith calculation of estimated glomerular filtration rate 57 NRG Serum or plasma glucose measurement (mass/volume) 105 mg/dL 70-105 Serum or plasma calcium measurement (mass/volume) 9.8 mg/dL 8.5-10.1 Serum or plasma total bilirubin measurement (mass/volu me) 1.2 mg/dL 0.1-1.0 Serum or plasma alkaline phosphatase todd surement (enzymatic activity/volume) 89 U/L 40-136 Serum or plasma aspartate aminotransfera se measurement (enzymatic activity/volume) 37 U/L 5-34 Serum or plasma alanine aminotransferase measurement (enzymatic activity/volume) 19 U/L 0-55 Serum or plasma protein measurement (mass/volume) 7.0 g/dL 6.4-8.2 Serum or plasma albumin measurement (mass/volume) 3.6 g/dL 3.2-4.5 CALCIUM CORRECTED 10.1 mg/dL 8.5-10.1 Sputum Gram stain - 12/16/18 15:15 Sputum Gram stain Mixed Bacterial [place] [facility] Bacterial sputum culture - 12/16/18 15:1 5 QUANTITY OF GROWTH . [facility] Bacterial sputum culture USUAL RESP NRG Blood CBC with ordered manual differenti al panel - 12/16/19 13:48 Blood leukocytes automated count (number/volume) 3.9 10*3/uL 4.3-11.0 Blood erythrocytes automated count (number/volume) 4.34 10*6/uL 4.35-5.85 Venous blood hemoglobin measurement (mass/volume) 12.8 g/dL 13.3-17.7 Blood hematocrit (volume fraction) 39 % 40-54 Automated erythrocyte mean corpuscular volume 91 [ foz_us] 80-99 Automated erythrocyte mean corpuscular h emoglobin (mass per erythrocyte) 30 pg 25-34 Automated erythrocyte mean corpuscular h emoglobin concentration measurement (mass/volume) 33 g/dL 32-36 Automated erythrocyte distribution width ratio 16. 2 % 10.0- 14.5 Automated blood platelet count (count/volume) 76 1 0*3/uL 130-400 Automated blood platelet mean volume measurement 10.2 [[facility]_us] 7.4-10.4 Automated blood neutrophils/100 leukocytes 48 % 42-75 Automated blood lymphocytes/100 leukocytes 21 % 12-44 Blood monocytes/100 leukocytes 15 % NRG Automated blood eosinophils/100 leukocytes 11 % 0-10 Automated blood basophils/100 leukocytes 1 % 0-10 Blood neutrophils automated count (number/volume) 1.9 10*3 1.8-7.8 Blood lymphocytes automated count (number/volume) 0.8 10*3 1.0-4.0 Blood monocytes automated count (number/volume) 0. 8 10*3 0.0-1.0 Automated eosinophil count 0.4 10*3/uL 0 .0-0.3 Automated blood basophil count (count/volume) 0.0 10*3/uL 0.0-0.1 Manual blood segmented neutrophils/100 leukocytes 54 % NR Manual blood lymphocytes/100 leukocytes 16 % NR Manual eosinophils/100 leukocytes in nose 15 % [facility] Blood erythrocyte morphology finding identification NORMAL [facility] Comprehensive metabolic panel - 12/16/19 13:48 Serum or plasma sodium measurement (moles/volume) 137 mmol/L 135-145 Serum or plasma potassium measurement (moles/volume) 3.6 mmol/L 3.6-5.0 Serum or plasma chloride measurement (moles/volume) 99 mmol/L 98-107 Carbon dioxide 31 mmol/L 21-32 Serum or plasma anion gap determination (moles/volume) 7 mmol/L 5-14 Serum or plasma urea nitrogen measurement (mass/volume ) 10 mg/dL 7-18 Serum or plasma creatinine measurement (mass/volume) 1.15 mg/dL 0.60-1.30 Serum or plasma urea nitrogen/creatinine mass ratio 9 NRG Serum or plasma creatinine measurement w ith calculation of estimated glomerular filtration rate > NRG Serum or plasma glucose measurement (mass/volume) 80 mg/dL 70-105 Serum or plasma calcium measurement (mass/volume) 9.4 mg/dL 8.5-10.1 Serum or plasma total bilirubin measurement (mass/volu me) 1.5 mg/dL 0.1-1.0 Serum or plasma alkaline phosphatase todd surement (enzymatic activity/volume) 137 U/L 40-136 Serum or plasma aspartate aminotransfera se measurement (enzymatic activity/volume) 70 U/L 5-34 Serum or plasma alanine aminotransferase measurement (enzymatic activity/volume) 20 U/L 0-55 Serum or plasma protein measurement (mass/volume) 7.3 g/dL 6.4-8.2 Serum or plasma albumin measurement (mass/volume) 3.5 g/dL 3.2-4.5 CALCIUM CORRECTED 9.8 mg/dL 8.5-10.1 Ammonia - 12/16/19 13:48 Ammonia 55 umol/L 11-32 Encounters ACCT No. Visit Date/Time Discharge Status Pt. Type Provider Facility Loc./Unit Complaint [id number] 09/13/2018 10:27:00 09/13/2018 12:46: 00 DIS Outpatient MUNDO SANYA [facility] ER [id number] 08/01/2017 15:48:00 08/01/2017 18:48: 00 DIS Outpatient Lisandra Mehnaz [facility] ER [id number] 06/13/2016 15:19:00 07/11/2016 10:30: 00 DIS Outpatient DULCE SANTOS [id number] 08/01/2017 18:10:31 Document Registration [id number] 06/08/2019 15:07:00 23:59:59 CLS Outpatient OSCAR ZHONG MD [facility] RAD UPPER THORACIC PAIN [id number] 04/20/2019 13:40:00 23:59:59 CLS Outpatient OSCAR ZHONG MD [facility] RAD COUGH [id number] 03/11/2019 14:42:00 23:59:59 CLS Outpatient OSCAR ZHONG MD [facility] RAD SOB [id number] 12/16/2018 14:52:00 019 23:59:59 CLS Outpatient OSCAR ZHONG MD [facility] LAB COUGH [id number] 12/09/2018 11:05:00 019 23:59:59 CLS Outpatient OSCAR ZHONG MD [facility] LAB HTN [id number] 01/23/2017 15:38:00 017 10:25:00 DIS Inpatient OSCAR ZHONG MD [facility] 4TH FEVER [id number] 01/23/2017 15:40:00 017 23:59:59 CLS Preadmit OSCAR ZHONG MD FEVER,ABD PAIN [id number] 10/29/2016 15:10:00 017 23:59:59 CLS Outpatient OSCAR ZHONG MD [facility] RAD CHRONIC COUGH [id number] 08/11/2015 10:22:00 016 10:50:00 DIS Inpatient OSCAR ZHONG MD [facility] 4TH PULMONARY EMBOLI [id number] 08/07/2015 17:54:00 016 10:30:00 DIS Inpatient DEVON DE SANTIAGO MD [facility] 4TH DEHYDRATION, WE AKNESS [id number] 05/05/2015 09:21:00 015 23:59:59 CLS Outpatient SILVIA RUBALCAVA DO [facility] RAD LEFT SHOULDER PAIN [id number] 03/05/2014 07:14:00 014 23:59:59 CLS Outpatient OSCAR ZHONG MD [facility] SDC SCREENING [id number] 03/04/2014 09:13:00 014 23:59:59 CLS Outpatient OSCAR ZHONG MD [facility] PREOP SCREENING [id number] 07/11/2013 16:39:00 013 16:15:00 DIS Inpatient OSCAR ZHONG MD [facility] 4TH ANEIMIA,GI BLEED [id number] 11/18/2012 18:48:00 013 23:59:59 CLS Outpatient [id number] 12/16/2019 12:16:[address] Inpatient FARHEEN HAMMOND, OSCAR Duarte [facility] 4TH PORTAL HYPOTENSION;CIRRHOSIS [id number] 08/11/2015 09:03:00 Document Registration
[2019-12-16] MEDS ORDERED: LACT10SO63 PO (15:41)
[2019-12-16] MEDS ORDERED: PROP60CA PO (15:41)
[2019-12-16] MEDS ORDERED: TIZA2TAB7 PO (15:41)
[2019-12-16] MEDS ORDERED: GLIP10TA13 PO (15:41)
[2019-12-16 15:56] VITALS: BP 165/74
--- NOTE | 2019-12-16 16:18 | NUR ---
SPOKE WITH THE PT (MED LIST IS ON THE CHART) AND WENT THRU THE EXT MED HISTORY TO COMPLETE THE MED REC BUMETANIDE 1MG- DIRECTIONS SHOW 1 TAB BID HOWEVER THE PT JUST TAKES 1 TAB DAILY ALL OTHER MEDICATIONS ON HIS MED LIST MATCH THE EXT MED HISTORY PT SAYS HE DOES NOT TAKE ANY OTC MEDICATIONS
--- NOTE | 2019-12-16 17:12 | Consultation - Surgery ---
History of Present Illness History of Present Illness Patient Consulted On(raymond/time) 12/16/19 17:07 Time Seen by Provider: 12:49 History of Present Illness Surgery asked to consult regarding Ascites and possible SBP. HPI: Pt is a 74 yo male who was in his primary care's office, complained of abd ominal pain with possible increasing abdominal distention and fevers at home. When I spoke to pt in the hospital he stated he always has pain, "when I eat I have pain, if I don't eat I have pain". He was unable to tell me exact temperature at home. States he was given "2 water pills" to try and get fluid off abdomen, but "it hasn't helped'. Apparently he was admitted a few years ago with similar symptoms and treated for SBP. He states he has never had fluid drained from abdomen. He denies Hepatitis C and admits to some "beer drinking", but thinks his Cirrhosis is due to some of the "pills I was taking for my psoriasis cause liver damage". Pain comes and goes and he rates it 3-4 out of 10. Pain now may be slightly worse than normal, but states he has pain almost everyday for past couple of years. Allergies and Home Medications Allergies Coded Allergies: Penicillins (Verified Allergy, Unknown, 08/07/15) Tetanus Vaccines & Toxoid (Verified Allergy, Unknown, 08/07/15) codeine (Verified Allergy, Unknown, 08/07/15) Home Medications Bumetanide 1 Mg Tablet, 1 MG PO DAILY, (Reported) Eplerenone 50 Mg Tablet, 50 MG PO DAILY PRN for FLUID RETENTION, (Reported) Glipizide 10 Mg Tablet, 10 MG PO DAILY, (Reported) Insulin Detemir 100 Unit/1 Ml Insuln.pen, 40 UNITS SQ 1800, (Reported) Lactulose 10 Gm/15 Ml Solution, 30 ML PO BID PRN for CONSTIPATION-3RD LINE, (Reported) Omeprazole 20 Mg Capsule.dr, 20 MG PO DAILY, (Reported) Oxycodone HCl/Acetaminophen 1 Each Tablet, 1 EA PO Q6H PRN for PAIN-MODERATE, (Reported) Propranolol HCl 60 Mg Cap.sa.24h, 60 MG PO DAILY, (Reported) Tizanidine HCl 2 Mg Tablet, 2-4 MG PO Q8H PRN for MUSCLE SPASMS, (Reported) Patient Home Medication List Home Medication List Reviewed: Yes Past Zspcmgf-Vmlcln-Oothex Hx Patient Social History Alcohol Use: Occasionally Uses Recreational Drug Use: No Smoking Status: Former Smoker Former Smoker, Quit: Jun 18, 1998 Recent Foreign Travel: No Contact w/Someone Who Travel: No Recent Infectious Disease Expo: No Recent Hopitalizations: No Physical Abuse Screen: No Sexual Abuse: No Immunizations Up To Date Date of Pneumonia Vaccine: Feb 12, 2013 Date of Influenza Vaccine: Apr 14, 2015 Seasonal Allergies Seasonal Allergies: No Surgeries History of Surgeries: Yes (RIGHT KNEE SCOPE X3, CERVICAL SPINE FUSION 07/27/15 Dr Griffiths) Respiratory History of Respiratory Disorde: No Cardiovascular History of Cardiac Disorders: Yes Cardiac Disorders: High Cholesterol, Hypertension Neurological History of Neurological Disord: Yes Neurological Disorders: Neuropathy Reproductive System Hx Reproductive Disorders: No Sexually Transmitted Disease: No HIV/AIDS: No Genitourinary History of Genitourinary Disor: No Gastrointestinal History of Gastrointestinal Di: Yes Gastrointestinal Disorders: Gastroesophageal Reflux, Ulcer, Cirrhosis Musculoskeletal History of Musculoskeletal Dis: Yes (neck) Musculoskeletal Disorders: Degenerate Disk Disease Endocrine History of Endocrine Disorders: Yes Endocrine Disorders: Diabetes, Insulin dep HEENT History of HEENT Disorders: No Cancer History of Cancer: No Psychosocial History of Psychiatric Problem: No Integumentary History of Skin or Integumenta: Yes Skin/Integumentary Disorders: Psoriasis Blood Transfusions History of Blood Disorders: No Adverse Reaction to a Blood Tr: No Family Medical History Significant Family History: Cancer, Diabetes Family Medial History: Arthritis 19 MOTHER, Onset:Unknown Cataracts 19 MOTHER, Onset:Unknown Diabetes mellitus MATERNAL GRANDMOTHER, Onset:Unknown FH: blindness MATERNAL GRANDMOTHER, Onset:Unknown (BLINDNESS DUE TO DIABETES) FH: lung cancer 19 MOTHER, Onset:Unknown FH: stroke MATERNAL GRANDMOTHER, Onset:Unknown Review of Systems-General Constitutional: chills, fever, malaise, weight gain EENTM: No blurred vision, No double vision, No mouth pain, No mouth swelling, No epistaxis Respiratory: No cough, No dyspnea on exertion, No hemoptysis; short of breath Cardiovascular: No chest pain, No palpitations Gastrointestinal: abdominal pain, heartburn; No jaundice, No nausea, No vomiting Genitourinary: No dysuria, No frequency, No hematuria Musculoskeletal: joint pain, joint swelling, muscle pain, muscle stiffness Skin: No change in color, No change in hair/nails Psychiatric/Neurological: Denies Anxiety, Denies Depressed, Denies Seizure, Denies Tremors Other Pt denies any hx of abnormal bleeding or bruising Physical Exam-General Problems Physical Exam Vital Signs Vital Signs - First Documented 12/16/19 12/16/19 12:30 13:19 Temp 36.7 Pulse 67 Resp 18 B/P (MAP) 137/71 Pulse Ox 95 O2 Delivery Room Air Capillary Refill : General Appearance: WD/WN, no apparent distress Eyes: Bilateral Eye PERRL, Bilateral Eye EOMI HEENT: pharynx normal; No scleral icterus (R), No scleral icterus (L) Neck: non-tender, supple, normal inspection Respiratory: chest non-tender, lungs clear, normal breath sounds, no respiratory distress, no accessory muscle use Cardiovascular: regular rate, rhythm, no edema, no murmur Gastrointestinal: non tender, soft, no organomegaly, no pulsatile mass, distended (??fluid wave) Rectal: deferred Back: no CVA tenderness, no vertebral tenderness Extremities: normal range of motion, non-tender, normal inspection, no pedal edema, no calf tenderness, normal capillary refill Neurologic/Psychiatric: mica plate layer hand II-XII nml as tested, no motor/sensory deficits, alert, normal mood/affect, oriented x 3 Skin: normal color, warm/dry Lymphatic: no adenopathy (neck, axilla or groin) Data Review Labs Laboratory Tests 12/16/19 13:48: White Blood Count 3.9L, Red Blood Count 4.34L, Hemoglobin 12.8L, Hematocrit 39L, Mean Corpuscular Volume 91, Mean Corpuscular Hemoglobin 30, Mean Corpuscular Hemoglobin Concent 33, Red Cell Distribution Width 16.2H, Platelet Count 76L, Mean Platelet Volume 10.2, Neutrophils (%) (Auto) 48, Lymphocytes (%) (Auto) 21, Monocytes (%) (Auto) 20H, Eosinophils (%) (Auto) 11H, Basophils (%) (Auto) 1, Neutrophils # (Auto) 1.9, Lymphocytes # (Auto) 0.8L, Monocytes # (Auto) 0.8, Eosinophils # (Auto) 0.4H, Basophils # (Auto) 0.0, Neutrophils % (Manual) 54, Lymphocytes % (Manual) 16, Monocytes % (Manual) 15, Eosinophils % (Manual) 15, Blood Morphology Comment NORMAL, Sodium Level 137, Potassium Level 3.6, Chloride Level 99, Carbon Dioxide Level 31, Anion Gap 7, Blood Urea Nitrogen 10, Creatinine 1.15, Estimat Glomerular Filtration Rate > 60, BUN/Creatinine Ratio 9, Glucose Level 80, Calcium Level 9.4, Corrected Calcium 9.8, Total Bilirubin 1.5H, Aspartate Amino Transf (AST/SGOT) 70H, Alanine Aminotransferase (ALT/SGPT) 20, Alkaline Phosphatase 137H, Ammonia 55H, Total Protein 7.3, Albumin 3.5 Radiology Date of Exam:12/16/19 CT ABDOMEN/PELVIS WO PROCEDURE: CT abdomen and pelvis without contrast. TECHNIQUE: Multiple contiguous axial images were obtained through the abdomen and pelvis without the use of intravenous contrast. Auto Exposure Controls were utilized during the CT exam to meet ALARA standards for radiation dose reduction. INDICATION: Abdominal pain, cirrhosis, and ascites. COMPARISON: Comparison is made to study of 01/23/2017. FINDINGS: There has been slight increase in nodularity, likely due to lymph nodes in the epiphrenic fat seen in the lower chest. There is thickening of the wall of the distal esophagus. This could represent varices. There is nodular surface contour to the liver with heterogeneous low density, most pronounced in the right lobe. This is similar to the previous study but is difficult to further assess without contrast. Lumy-un-bdnzwqms abdominopelvic ascites is again noted. No pancreatic or adrenal gland lesion is identified. There is mild splenomegaly. Numerous venous collaterals are seen in the retroperitoneum. Unenhanced images of the kidneys remain unremarkable. Bladder is unremarkable. There is no evidence of walled fluid collection or localized inflammation. IMPRESSION: Findings remain compatible with hepatic cirrhosis and portal venous hypertension with dpje-zo-eokrxroa abdominopelvic ascites, splenomegaly, and numerous portosystemic venous collaterals. There is heterogeneous low density in the liver, most pronounced in the right lobe which could be related to regenerating nodules. This is incompletely evaluated on the noncontrasted study. If further assessment is warranted, consideration could be given to MRI. Dictated by: Dictated on workstation # [id number] Dict: 12/16/19 1301 Trans: 12/16/19 1655 [id number] [id number] Interpreted by: CHARLENE TERRAZAS MD Electronically signed by: CHARLENE TERRAZAS MD 12/16/19 [id number] Assessment/Plan Assessment/Plan Assessment/Plan Ascites r/o Spontaneous Bacterial Peritonitis Cirrhosis Pt does have ascites on CT and liver appears more nodular. Pt labs and vitals do not suggest SBP at this time. I will hold off on paracentesis and probably recommend no ABX at this time. IVF and Diuretics, would also continue Lactulose to keep ammonia level low. I will follow along. Clinical Quality Measures DVT/VTE Risk/Contraindication: Risk Factor Score Per Nursin RFS Level Per Nursing on Admit: 4+=Very High THIERRY JOHANSEN DO Dec 16, 2019 17:12
--- NOTE | 2019-12-16 17:43 | History & Physical-Hospitalist ---
History of Present Illness HPI/Chief Complaint Patient reports feeling progressively worse over the last week. He then ran a temperature of 100 last night without chills or night sweats. He reports increase in baseline abdominal pain worse in the epigastric and right upper quadrant area. He's had poor appetite with some postprandial nausea. He denies diarrhea or constipation is noted no melena or bright red blood per rectum. He denies travel. He comes with his to the office who states that he has not been confused just weak and listless. He is unsure as to whether or not his abdomen feels more distended but his weight was up 6 pounds by our office scales despite poor by mouth intake. He denied orthopnea PND or pedal edema. Past medical history is significant for cirrhosis with portal hypertension and several previous bouts of hepatic encephalopathy. He had a past history of heavy drinking but is been over 20 years since he last consumed alcohol. He had a past history of methotrexate for a while for psoriasis although liver function tests while on therapy were normal. He has known varices without previous history of bleeding involving the distal esophagus. Date Seen 12/16/19 Time Seen by a Provider: 10:00 Attending Physician Oscar Zhong MD PCP Oscar Zhong MD Referring Physician Date of Admission Dec 16, 2019 at 12:16 Home Medications & Allergies Home Medications Reviewed patient Home Medication Reconciliation performed by pharmacy medication reconciliations industrial engineering technician and/or nursing. Patients Allergies have been reviewed. Allergies Allergies Coded Allergies Penicillins (Verified Allergy, Unknown, 08/07/15) Tetanus Vaccines & Toxoid (Verified Allergy, Unknown, 08/07/15) codeine (Verified Allergy, Unknown, 08/07/15) Past Mmgther-Jjyfhk-Agvaum Hx Past Med/Social Hx: Reviewed and Corrections made Patient Social History Alcohol Use: Occasionally Uses Recreational Drug Use: No Smoking Status: Former Smoker Former Smoker, Quit: Jun 18, 1998 Physical Abuse Screen: No Sexual Abuse: No Recent Foreign Travel: No Contact w/other who traveled: No Recent Hopitalizations: No Recent Infectious Disease Expo: No Immunizations Up To Date Date of Pneumonia Vaccine: Feb 12, 2013 Date of Influenza Vaccine: Apr 14, 2015 Seasonal Allergies Seasonal Allergies: No Past Medical History Currently Using CPAP: No Currently Using BIPAP: No Cardiac: High Cholesterol, Hypertension Neurological: Neuropathy Reproductive: No Sexually Transmitted Disease: No HIV/AIDS: No Gastrointestinal: Gastroesophageal Reflux, Ulcer, Cirrhosis Musculoskeletal: Degenerate Disk Disease Endocrine: Diabetes, Insulin dep Are Your Blood Sugars Over 250: No Skin/Integumentary: Psoriasis History of Blood Disorders: No Adverse Reaction to Blood Dale: No Family History Arthritis 19 MOTHER, Onset:Unknown Cataracts 19 MOTHER, Onset:Unknown Diabetes mellitus MATERNAL GRANDMOTHER, Onset:Unknown FH: blindness MATERNAL GRANDMOTHER, Onset:Unknown (BLINDNESS DUE TO DIABETES) FH: lung cancer 19 MOTHER, Onset:Unknown FH: stroke MATERNAL GRANDMOTHER, Onset:Unknown Cancer, Diabetes Review of Systems Constitutional: see HPI Physical Exam Physical Exam Vital Signs Capillary Refill : Height, Weight, BMI Height: 5'11.00" Weight: 190lbs. 2.0oz. 86.968856ay; 28.94 BMI Method: General Appearance: Chronically ill, Mild Distress, Other (fatigued) HEENT: Pharynx Normal, Other (nonicteric) Neck: Limited Range of Motion Respiratory: Chest Non Tender, Lungs Clear, Normal Breath Sounds, No Accessory Muscle Use, No Respiratory Distress Cardiovascular: Regular Rate, Rhythm, No Edema, No Gallop, No JVD, No Murmur, Normal Peripheral Pulses Gastrointestinal: Normal Bowel Sounds, No Organomegaly, Distended, Tenderness (diffuse but worse in the RUQ) Extremity: Normal Capillary Refill, Normal Inspection, Normal Range of Motion, Non Tender, No Calf Tenderness, No Pedal Edema Skin: Warm/Dry, Pallor Lymphatic: No Adenopathy Results Results/Procedures Labs Patient resulted labs reviewed. Assessment/Plan Admission Diagnosis 1. Increase in abdominal pain predominantly epigastric with low-grade fever and loss of appetite in an individual with known cirrhosis portal hypertension and likely increasing ascites was concerning for spontaneous bacterial peritonitis especially as the patient has a past history of this. His white count however is low without a left shift with mild thrombocytopenia both likely due to hypers plenism from his known portal hypertension. Agree with holding off on tap at this time and will initiate IV diuretic therapy. I was surprised to normal BUN/creatinine ratio so we'll hold IV fluids but will continue propranolol as the patient has known varices with no past history of known variceal bleeding. 2. Type II diabetes mellitus continue a.m. glipizide and 20 units of Levemir at at bedtime monitoring fingerstick blood sugars. 3. History of past hepatic encephalopathy. His current venous ammonia level is been near his baseline and he does not have clinical evidence for hepatic encephalopathy at this time. Will continue lactulose. 4. CT scanning of the abdomen and pelvis was ordered noncontrast over concerns of volume depletion and increased risk for contrast related nephropathy. This did confirm significant ascites and evidence for portal hypertension. Considering noncontrast abnormalities more prevalent in the right hepatic lobe and increased risk for hepatoma O we will obtain an alpha-fetoprotein level. If significantly elevated we'll proceed with likely MRI. Admission Status: Inpatient Order (span 2 midnights) Reason for Inpatient Admission: See admission diagnosis Critical Care Critically Ill Patient Clinical Quality Measures DVT/VTE Risk/Contraindication: Risk Factor Score Per Nursin RFS Level Per Nursing on Admit: 4+=Very High OSCAR ZHONG MD Dec 16, 2019 17:43
[2019-12-16] MEDS ORDERED: FUROSEMIDE 40 MG/4 ML INJ (LASIX) IVP NR (18:00)
[2019-12-16 19:48] VITALS: BP 126/73
--- NOTE | 2019-12-16 20:44 | NUR ---
pt complains of 5-6/10 pain in neck, Dr pritchard contacted, ordered oxycodone 5mg q4 prn. pt blood sugar 157, this nurse asked Dr. Pritchard if pt should receive full 20 units of scheduled levemir, dr said yes,
[2019-12-16] MEDS: LACTULOSE SYRUP 10GM/15ML (ENULOSE) 30ML UDC PO SCH (21:56)
[2019-12-16] MEDS: SPIRONOLACTONE 25 MG (ALDACTONE) TAB PO SCH (21:56)
[2019-12-16] MEDS: PROPRANOLOL 20 MG (INDERAL) TABLET PO SCH (21:56)
[2019-12-16 23:21] VITALS: BP 115/72
[2019-12-17 03:52] VITALS: BP 122/72
[2019-12-17 06:14] LABS: HEMOGLOBIN 11.9 G/DL (13.3-17.7); MEAN PLATELET VOLUME 10.7 FL (7.4-10.4); RED CELL DISTRIBUTION WIDTH 16.3 % (10.0-14.5); WHITE BLOOD COUNT 3.3 10^3/uL (4.3-11.0)
[2019-12-17] MEDS: PROPRANOLOL 20 MG (INDERAL) TABLET PO SCH (06:14)
[2019-12-17] MEDS ORDERED: glipiZIDE 5 MG (GLUCOTROL) TAB PO SCH (06:30)
[2019-12-17 06:36] LABS: BUN/CREATININE RATIO 8; CALCIUM 9.4 MG/DL (8.5-10.1); CARBON DIOXIDE 27 MMOL/L (21-32); CHLORIDE 103 MMOL/L (98-107); CREATININE SERUM 1.07 MG/DL (0.60-1.30); GFR ESTIMATED > 60; GLUCOSE 79 MG/DL (70-105); POTASSIUM 3.5 MMOL/L (3.6-5.0); SODIUM 138 MMOL/L (135-145)
[2019-12-17 08:00] VITALS: BP 147/71
[2019-12-17] MEDS ORDERED: PROPRANOLOL 20 MG (INDERAL) TABLET PO ONE (09:00)
[2019-12-17] MEDS ORDERED: FUROSEMIDE 40 MG/4 ML INJ (LASIX) IVP SCH (09:00)
[2019-12-17] MEDS: LACTULOSE SYRUP 10GM/15ML (ENULOSE) 30ML UDC PO SCH (09:30)
[2019-12-17] MEDS: SPIRONOLACTONE 25 MG (ALDACTONE) TAB PO SCH (09:31)
--- NOTE | 2019-12-17 10:32 | Discharge Inst-Simple/Standard ---
Discharge Inst-Standard Patient Instructions/Follow Up Plan of Care/Instructions/FU: Please continue to take your medications as written. Please hold your insulin as we talked about. If your blood sugars gets over 200 you can resume it at 10 units a night. Please see Dr Martinez next week. Activity as Tolerated: Yes Discharge Diet: Low Sodium Diet Return to The Hospital For: Chest pain, shortness of breath, abdominal pain, fever, confusion, if you feel you are getting worse. NAKIA JENKINS MD Dec 17, 2019 10:28
--- NOTE | 2019-12-17 10:34 | NUR ---
CM/SS: Visited with pt as to plan for discharge Plan: Pt will return home with no identified services Summary: Pt reports he is ready to home as he has not been able to get much sleep here. Pt reports he has medical equipment of a walker, and a cane in the home already. Pt appears to be a little unsteady as he is walking in the [place] with his . Pt is home alone during the day as spouse reports that she works during the day at [employer] and he does ok at the house. Pt aware he will need to have a test - scan of his liver - as a follow up on an outpatient basis. He verbalizes understanding and is able to get to appointment. Pt is wished well as he discharges back home.
--- NOTE | 2019-12-17 10:37 | Discharge Summary ---
Diagnosis/Chief Complaint Date of Admission Dec 16, 2019 at 12:16 Date of Discharge Discharge Date: Dec 17, 2019 Admission Diagnosis 1. Increase in abdominal pain predominantly epigastric with low-grade fever and loss of appetite in an individual with known cirrhosis portal hypertension and likely increasing ascites was concerning for spontaneous bacterial peritonitis especially as the patient has a past history of this. His white count however is low without a left shift with mild thrombocytopenia both likely due to hypersplenism from his known portal hypertension. Agree with holding off on tap at this time and will initiate IV diuretic therapy. I was surprised to normal BUN/creatinine ratio so we'll hold IV fluids but will continue propranolol as the patient has known varices with no past history of known variceal bleeding. 2. Type II diabetes mellitus continue a.m. glipizide and 20 units of Levemir at at bedtime monitoring fingerstick blood sugars. 3. History of past hepatic encephalopathy. His current venous ammonia level is been near his baseline and he does not have clinical evidence for hepatic encephalopathy at this time. Will continue lactulose. 4. CT scanning of the abdomen and pelvis was ordered noncontrast over concerns of volume depletion and increased risk for contrast related nephropathy. This did confirm significant ascites and evidence for portal hypertension. Considering noncontrast abnormalities more prevalent in the right hepatic lobe and increased risk for hepatoma O we will obtain an alpha-fetoprotein level. If significantly elevated we'll proceed with likely MRI. Primary Care Guille Martinez MD Discharge Summary Discharge Physical Exam Allergies: Coded Allergies: Penicillins (Verified Allergy, Unknown, 08/07/15) Tetanus Vaccines & Toxoid (Verified Allergy, Unknown, 08/07/15) codeine (Verified Allergy, Unknown, 08/07/15) Vitals & I&Os General Appearance: No Apparent Distress, WD/WN Cardiovascular: Regular Rate, Rhythm, No Murmur Neurologic/Psychiatric: Alert, Oriented x3 Hospital Course Pt was admitted due to fever and concern for SBP. He underwent CT Abd/Pelvis which revealed minimal fluid and he never spiked another fever. MRI was recommended due to focal density in his liver noted on CT but was unable to be done inpatient so this was recommended for outpatient followup. He was discharged home in stable condition to follow up with Dr Martinez. I called and updated Dr Martinez in regards to this hospital stay. Labs (last 24 hrs) Patient resulted labs reviewed. Pending Labs Discussion & Recommendations Discharge Planning: >30 minutes discharge planning Discharge Home Medications: Active Scripts Active Reported Enulose (Lactulose) 10 Gm/15 Ml Solution 30 Ml PO BID PRN Tizanidine HCl 2 Mg Tablet 2-4 Mg PO Q8H PRN Propranolol HCl ER (Propranolol HCl) 60 Mg Cap.sa.24h 60 Mg PO DAILY Glipizide 10 Mg Tablet 10 Mg PO DAILY Oxycodone-Acetaminophen 10-325 (Oxycodone HCl/Acetaminophen) 1 Each Tablet 1 Ea PO Q6H PRN Eplerenone 50 Mg Tablet 50 Mg PO DAILY PRN Bumetanide 1 Mg Tablet 1 Mg PO DAILY Omeprazole 20 Mg Capsule.dr 20 Mg PO DAILY Instructions to patient/family Please see electronic discharge instructions given to patient. Clinical Quality Measures DVT/VTE Risk/Contraindication: Risk Factor Score Per Nursin RFS Level Per Nursing on Admit: 4+=Very High NAKIA JENKINS MD Dec 17, 2019 10:37
--- NOTE | 2019-12-17 10:38 | NUR ---
"RD ASSESSMENT PMHx: hypercholesterolemia; HTN; GERD; DM; cirrhosis PT INTERACTION: Pt was awake and pleasant during nutrition assessment. Note pt is hard of hearing, and pt's present at bedside. Pt states current appetite is poor and has been poor for some time. Note avg PO intake 100% x2meal, per chart review. Pt states following a regular diet at home, and has no issues with chewing/swallowing food. Pt states no recent issues with nausea, vomiting, constipation, or diarrhea, and that his last BM was 6/4. Note pt not currently on bowel regimen per chart review. Pt states that his wt fluctuates up and down. Note unable to determine recent wt hx, per chart review. Pt states current DM management is pretty good, with avg blood glucose levels between 125-130. Note unable to determine recent HbA1c, per chart review. ABNORMAL NUTRITION-RELATED LAB VALUES LOW: K 3.5 HIGH: Est. kcal needs: 7722-4779 kcal | 20-25 kcal/kg Est. Pro needs: 75-94 g Pro | 0.8-1.0 g Pro/kg PES STATEMENT: Inadequate oral intake (NI-2.1) related to loss of appetite as evidenced by pt interview INTERVENTION: Continue with current diet order of CHO 45g/m 3snack diet. Offered diet education on DM management, but pt declined at this time. Will attempt to offer again prior to discharge. Will continue to follow and reassess as pt needs, intake, and status change. MONITOR/EVALUATE: PO Intake; Plan of Care; Hydration Status; Weight Status; Lab Values To Castillo, , RD, LD"
--- NOTE | 2019-12-17 12:00 | Progress Note - Surgery ---
Subjective Time Seen by a Provider: 11:50 Subjective/Events-last exam Pt seen and examined, states he is urinating more and belly feels better. His main complaint is his back hurts because of the bed. Review of Systems General: No Chills, No Night Sweats Pulmonary: No Dyspnea, No Cough Cardiovascular: No: Chest Pain, Palpitations Objective Exam Vital Signs Date Time Temp Pulse Resp B/P (MAP) Pulse Ox O2 Delivery O2 Flow Rate FiO2 12/17/19 11:35 37.0 12/17/19 08:02 Room Air 12/17/19 08:00 37.0 67 20 147/71 (96) 95 Room Air 12/17/19 03:52 37.2 70 20 122/72 (89) 94 Room Air 12/16/19 23:21 37.0 67 18 115/72 (86) 95 Room Air 12/16/19 20:20 Room Air 12/16/19 19:48 37.0 66 18 126/73 (90) 94 Room Air 12/16/19 15:56 36.6 63 18 165/74 (104) 96 Room Air 12/16/19 13:19 36.7 67 18 137/71 95 Room Air 12/16/19 12:30 Room Air I & O 12/17/19 07:00 Intake Total 1000 ml Balance 1000 ml Capillary Refill : Less Than 3 Seconds General Appearance: No Apparent Distress, WD/WN Respiratory: Chest Non Tender, Lungs Clear, Normal Breath Sounds, No Accessory Muscle Use, No Respiratory Distress Cardiovascular: Regular Rate, Rhythm, No Murmur Gastrointestinal: non tender, soft, no organomegaly, no pulsatile mass, distended (??fluid wave) Results Lab Laboratory Tests 12/16/19 13:48: White Blood Count 3.9L, Red Blood Count 4.34L, Hemoglobin 12.8L, Hematocrit 39L, Mean Corpuscular Volume 91, Mean Corpuscular Hemoglobin 30, Mean Corpuscular Hemoglobin Concent 33, Red Cell Distribution Width 16.2H, Platelet Count 76L, Mean Platelet Volume 10.2, Neutrophils (%) (Auto) 48, Lymphocytes (%) (Auto) 21, Monocytes (%) (Auto) 20H, Eosinophils (%) (Auto) 11H, Basophils (%) (Auto) 1, Neutrophils # (Auto) 1.9, Lymphocytes # (Auto) 0.8L, Monocytes # (Auto) 0.8, Eosinophils # (Auto) 0.4H, Basophils # (Auto) 0.0, Neutrophils % (Manual) 54, Lymphocytes % (Manual) 16, Monocytes % (Manual) 15, Eosinophils % (Manual) 15, Blood Morphology Comment NORMAL, Sodium Level 137, Potassium Level 3.6, Chloride Level 99, Carbon Dioxide Level 31, Anion Gap 7, Blood Urea Nitrogen 10, Creatinine 1.15, Estimat Glomerular Filtration Rate > 60, BUN/Creatinine Ratio 9, Glucose Level 80, Calcium Level 9.4, Corrected Calcium 9.8, Total Bilirubin 1 .5H, Aspartate Amino Transf (AST/SGOT) 70H, Alanine Aminotransferase (ALT/SGPT) 20, Alkaline Phosphatase 137H, Ammonia 55H, Total Protein 7.3, Albumin 3.5, Alpha Fetoprotein 99770.2H 12/16/19 20:32: Glucometer 157H 12/17/19 05:45: White Blood Count 3.3L, Red Blood Count 4.12L, Hemoglobin 11.9L, Hematocrit 37L, Mean Corpuscular Volume 90, Mean Corpuscular Hemoglobin 29, Mean Corpuscular Hemoglobin Concent 32, Red Cell Distribution Width 16.3H, Platelet Count 58L, Mean Platelet Volume 10.7H, Sodium Level 138, Potassium Level 3.5L, Chloride Level 103, Carbon Dioxide Level 27, Anion Gap 8, Blood Urea Nitrogen 9, Creatinine 1.07, Estimat Glomerular Filtration Rate > 60, BUN/Creatinine Ratio 8, Glucose Level 79, Calcium Level 9.4 12/17/19 09:27: Glucometer 60*L 12/17/19 10:53: Glucometer 120H Assessment/Plan Assessment/Plan Assessment/Plan Ascites doubt Spontaneous Bacterial Peritonitis Cirrhosis Pt does have ascites on CT and liver appears more nodular; labs and vitals do not suggest SBP at this time. Pt will be set up for outpt liver bx. Clinical Quality Measures DVT/VTE Risk/Contraindication: Risk Factor Score Per Nursin RFS Level Per Nursing on Admit: 4+=Very High THIERRY JOHANSEN DO Dec 17, 2019 12:00
[2019-12-17 12:20] VITALS: BP 147/71
--- NOTE | 2019-12-23 11:42 | Physician Query Clarification ---
PQ-Further Specificity Admission/Discharge Admission Date: Dec 16, 2019 at 12:16 Discharge Date: Dec 17, 2019 at 12:20 The medical record reflects the following clinical scenario: History/Risk Factors: ascites, cirrhosis, portal hypertension, hx SBP Clinical Findings: CT scan shows ascites and liver more nodular Treatment: IVF, IV diuretics, Lactulose Question: Can you further specify the etiology of the ascites per the clinical indicators above? Please document a response in the Progress Notes or Discharge Summary. 1. ascites due to cirrhosis 2. ascites due to portal hypertension 3. Other, with explanation of the clinical findings. 4. Clinically undetermined, no explanation for the clinical findings. PHYSICIAN RESPONSE Can you specify per above: 1 Please remember a lack of response to the above will prompt a phone page by CDI/Coding staff. In responding to this query, please exercise your independent professional judgment. The purpose of this communication is to more accurately reflect the complexity of your patients condition. The fact that a question is asked does not imply that any particular answer is desired or expected. Thank you for your timely response to this clarification. Requestors name: Tristen THIS PHYSICIAN QUERY FORM IS A PERMANENT PART OF THE MEDICAL RECORD TRISTEN SANDHU Dec 23, 2019 11:42 NAKIA JENKINS MD Dec 28, 2019 16:16
== END 2019-12-17 12:20 | disposition home or self-care (01) | DRG 433 ==
LOC: 4TH 12:16
PROVIDERS: ADMIT Internal Medicine; ATTEND Internal Medicine
DX: K74.60 Unspecified cirrhosis of liver (principal); R18.8 Other ascites; K76.6 Portal hypertension; D69.6 Thrombocytopenia, unspecified; Z87.891 Personal history of nicotine dependence; E78.00 Pure hypercholesterolemia, unspecified; I10 Essential (primary) hypertension; E11.40 Type 2 diabetes mellitus with diabetic neuropathy, unspecified; Z79.4 Long term (current) use of insulin; K21.9 Gastro-esophageal reflux disease without esophagitis; L40.9 Psoriasis, unspecified
CPT/HCPCS: 36415; 74176; 80048; 80053; 82105; 82140; 82962; 85007; 85027

== ENCOUNTER → 2019-12-24 | Outpatient (CLI) | payer MEDICARE ==
[~2019-12-24] MED LIST changes: +CATHETER FLUSH 10 ML SYR IV PRN; +GLIP10TA13 PO; +HOLD METFORMIN - RECEIVED CONTRAST 20 ML VIAL IV SCH; +IOHEXOL 350 MG/ML 100 ML (OMNIPAQUE 350) VIAL IV ONE; +LACT10SO63 PO; +NS 100 ML (IVPB) BAG IV ONE; +TIZA2TAB7 PO
--- NOTE | 2019-12-25 10:13 | Diagnostic Imaging Report ---
Procedure: CT abdomen with and without contrast. Technique: Multiple contiguous axial CT images of the abdomen were obtained prior to and after intravenous administration of iodinated contrast. Auto Exposure Controls were utilized during the CT exam to meet ALARA standards for radiation dose reduction. Date: December 24, 2019. Indication: 74-year-old male, right upper quadrant abdominal pain. Comparison: December 16, 2019. Findings: The visualized portions of the lung bases are clear. The heart is not enlarged. There is no pericardial effusion. The outer liver contours are slightly nodular. There is no identified hypervascular liver lesion. There is no otherwise identified abnormally enhancing liver lesion. There is occlusion of the main, right, and left portal veins. The superior mesenteric vein is patent. The splenic vein is patent. There are collateral vessels in the left upper quadrant and gastroesophageal varices. There is no CT apparent gallstone. The gallbladder is not grossly distended. There is no identified intrahepatic or extrahepatic bile duct dilation. The main pancreatic duct is not grossly dilated. The pancreatic parenchyma is unremarkable. The spleen is mildly enlarged measuring 17.1 cm in craniocaudal dimension. The adrenal glands are unremarkable. Unremarkable appearance of the renal parenchyma. The urinary collecting systems are not distended in their imaged portions. There is nonspecific wall thickening of the stomach and first portion of duodenum. There is nonspecific apparent wall thickening of the right colon. There is no identified free intraperitoneal air or focal fluid collection. There is a moderate to large volume ascites. There are atherosclerotic calcifications. There is no identified abnormally enlarged lymph node in the abdomen meeting CT size criteria for adenopathy. There are multilevel degenerative changes of the spine. There is no identified acute bony abnormality. Impression: 1. Cirrhosis without identified liver lesion to suggest hepatocellular carcinoma. 2. Occlusion of the main, right, and left portal veins. 3. Mild splenomegaly, dilated collateral vessels in the left upper quadrant, and gastroesophageal varices. Moderate to large volume ascites. 4. Nonspecific wall thickening of the stomach, first portion of duodenum, and right colon. This potentially could relate to ascites and a hypoalbuminemic state. Infectious and inflammatory etiologies are also in the differential diagnosis. Dictated by: Dictated on workstation # [id number]
== END ==
LOC: RAD 15:49
PROVIDERS: ATTEND Internal Medicine
DX: K74.60 Unspecified cirrhosis of liver (principal); I81 Portal vein thrombosis; R16.1 Splenomegaly, not elsewhere classified
CPT/HCPCS: 74170

== ENCOUNTER → 2019-12-30 | Outpatient (CLI) | payer MEDICARE ==
[~2019-12-30] VITALS: Ht 180.4 cm; Wt 91.8 kg
[~2019-12-30] MED LIST changes: -CATHETER FLUSH 10 ML SYR IV PRN; -HOLD METFORMIN - RECEIVED CONTRAST 20 ML VIAL IV SCH; -IOHEXOL 350 MG/ML 100 ML (OMNIPAQUE 350) VIAL IV ONE; -NS 100 ML (IVPB) BAG IV ONE
[2019-12-30 12:26] LABS: AMYLASE,BODY FLUID 12 U/L; GLUCOSE,BODY FLUID 114 MG/DL; TOTAL PROTEIN,BODY FLUID 1.4 G/DL
[2019-12-30 12:42] LABS: LDH,BODY FLUID 41 U/L
[2019-12-30 14:02] LABS: BF OTHER CELLS 5 %; BODY FLUID APPEARENCE SLT CLDY; BODY FLUID COLOR YELLOW; BODY FLUID RBC COUNT 1450 /uL; BODY FLUID SOURCE PERITON; BODY FLUID WBC TOTAL COUNT 378 /uL; LYMPHOCYTES,BODY FLUID 82 %
--- NOTE | 2019-12-30 15:04 | Progress Note-Pre Operative ---
Pre-Operative Progress Note H&P Reviewed The H&P was reviewed, patient examined and no changes noted. Time Seen by Provider: 10:51 Date H&P Reviewed: Dec 30, 2019 Time H&P Reviewed: 10:51 Pre-Operative Diagnosis: Ascites, Liver nodules THIERRY JOHANSEN DO Dec 30, 2019 15:04
--- NOTE | 2019-12-30 15:05 | Progress Note-Post Operative ---
Post-Operative Progess Note Surgeon (s)/Cutting Machine Operator (s) Surgeon THIERRY JOHANSEN DO Cutting Machine Operator: none Pre-Operative Diagnosis Ascites, Liver nodules Post-Operative Diagnosis same pending path Procedure & Operative Findings Date of Procedure 12/30/19 Procedure Performed/Findings US guided paracentesis Anesthesia Type local lidocaine Estimated Blood Loss Estimated blood loss (mL): scant Specimens/Packing Specimens Removed 3050ml THIERRY JOHANSEN DO Dec 30, 2019 15:05
--- NOTE | 2019-12-30 17:54 | Diagnostic Imaging Report ---
INDICATION: Cirrhosis and ascites. EXAMINATION: Sonographic guidance was provided for Dr. Watters for paracentesis. FINDINGS: Images demonstrate a large amount of ascites. Approximately 3 L of fluid was removed. IMPRESSION: Large ascites. Guidance was provided for Dr. Watters for paracentesis. Dictated by: Dictated on workstation # [id number]
--- NOTE | 2019-12-30 22:06 | OPERATIVE REPORT ---
DATE OF SERVICE: 12/30/2019 PREOPERATIVE DIAGNOSES: Ascites and liver mass. POSTOPERATIVE DIAGNOSES: Ascites and liver mass, pending pathology. PROCEDURE: Ultrasound-guided paracentesis. SURGEON: Derek Watters DO CERTIFIED CORPORATE TRAVEL EXECUTIVE: None. ANESTHESIA: Local lidocaine. BLOOD LOSS: Scant. FLUIDS: None. SPECIMEN: 3050 mL of ascitic fluid from the abdomen. INDICATION FOR PROCEDURE: The patient is a 74-year-old male who continues to have ascites. He had a couple of episodes of possible spontaneous bacterial peritonitis and had some nodules on the liver, needed a paracentesis to get specimen for culture and for cytology. FINDINGS: The patient had 3050 mL of ascitic fluid removed. PROCEDURE NOTE: After informed consent was obtained, the patient was in the radiology procedure room. He was first ultrasounded and marked and then he was sterilely prepped and draped in normal fashion and with ultrasound guidance, first infiltrating the skin with local, then made incision with a stab incision with #11 blade and then watching with ultrasound, I advanced the safe needle gently through the skin and tissues and watched it enter the abdomen right into a collection of fluid. Once the needle entered, got a good flash of ascitic fluid, advanced the catheter and removed the needle. At this point, then hooked up the catheter to vacutainer and got out 3050 mL. It was a yellowish serous looking fluid. This was sent to pathology for cytology and cultures. Catheter was removed and dressing placed. The patient tolerated the procedure. Job ID: [id number] DocumentID: [id number] Dictated Date: 12/30/2019 17:22:56 Creosoting Engineer Date: 12/30/2019 22:05:55 Dictated By: DEREK WATTERS DO
== END ==
LOC: RAD 10:45
PROVIDERS: ATTEND Surgery
DX: K74.69 Other cirrhosis of liver (principal); R18.8 Other ascites
CPT/HCPCS: 49083; 82150; 82570; 82945; 83615; 84157; 87070; 87075; 87101; 87205; 89051

== ENCOUNTER → 2020-02-03 | Outpatient (CLI) | payer MEDICARE ==
[~2020-02-03] MED LIST changes: +GADOBUTROL 10 MMOL/10 ML (GADAVIST) VIAL IV ONE
--- NOTE | 2020-02-03 13:37 | Diagnostic Imaging Report ---
EXAMINATION: MRI of the abdomen with and without contrast. TECHNIQUE: Multiplanar, multisequence MR images of the abdomen were obtained with and without intravenous contrast. HISTORY: Cirrhosis. COMPARISON: CT dated 12/24/2019. FINDINGS: There is a 4.4 x 5.0 cm T1 hypointense and T2 hyperintense lesion in hepatic segment 7. This shows mild diffusion restriction. There is no arterial phase hyperenhancement, but the arterial phase is somewhat late. There is washout on delayed images. Borders of this lesion are not well-defined and are quite infiltrative. This observation is concerning for an infiltrative hepatocellular carcinoma but is categorized as LI-RADS 4 given the absence of clear arterial phase hyperenhancement. There are several additional areas of diffusion restriction in the liver which also display washout on delayed imaging. Contrast dynamics are difficult in this case because there is thrombosis of the portal vein and its right and left branches. There are extensive peribiliary collaterals with peribiliary enhancement. Liver is cirrhotic. Gallbladder is normal. Pancreas is normal. Spleen is enlarged. There are extensive esophageal varices and the umbilical vein is recanalized. Kidneys are normal. There is large volume ascites. Lungs are clear. No osseus lesions are seen. Heart size is normal. Bowel is normal. No abdominal aneurysm is seen. IMPRESSION: 1. Cirrhotic liver with an infiltrative suspicious lesion in segment 7 measuring up to 5.0 cm. This is characterized as LI-RADS 4, as there is no arterial phase hyperenhancement, but I suspect this is an infiltrative hepatocellular carcinoma. In this case, a biopsy may be required to avoid further delay and diagnosis. 2. Multiple additional lesions in the liver are also suspicious for hepatocellular carcinoma. However, application of LI-RADS criteria is difficult due to the thrombosis of the portal vein and the delayed late arterial phase on today's exam. 3. Portal hypertension with thrombosis of the portal vein, splenomegaly, esophageal varices and large volume ascites. Dictated by: Dictated on workstation # [id number]
== END ==
LOC: RAD 09:39
PROVIDERS: ATTEND Internal Medicine Hematology & Oncology
DX: K74.60 Unspecified cirrhosis of liver (principal); R77.2 Abnormality of alphafetoprotein; K76.6 Portal hypertension; I81 Portal vein thrombosis; R18.8 Other ascites; I85.10 Secondary esophageal varices without bleeding; R16.1 Splenomegaly, not elsewhere classified
CPT/HCPCS: 74183

== ENCOUNTER 2020-02-05 06:53 | Outpatient (CLI) | payer MEDICARE ==
[~2020-02-05] VITALS: Ht 180.3 cm; Wt 96.0 kg
[~2020-02-05 06:53] MED LIST changes: -GADOBUTROL 10 MMOL/10 ML (GADAVIST) VIAL IV ONE
[2020-02-05 07:15] VITALS: BP 127/70
--- NOTE | 2020-02-05 07:23 | NUR ---
DR. JOHANSEN WAS PHONED AT THE ABOVE TIME. WAS ASKED IF ULTRASOUND WAS NEEDED FOR PROCEDURE. STATED YES ULTRA SOUND NEEDED.
--- NOTE | 2020-02-05 08:09 | Progress Note-Pre Operative ---
Pre-Operative Progress Note H&P Reviewed The H&P was reviewed, patient examined and no changes noted. Time Seen by Provider: 08:03 Date H&P Reviewed: Feb 05, 2020 Time H&P Reviewed: 08:04 Pre-Operative Diagnosis: Ascites THIERRY JOHANSEN DO Feb 05, 2020 08:09
--- NOTE | 2020-02-05 08:30 | NUR ---
PHONE KATERIN CANDELARIA PER DR JOHANSEN TO GET PROTOCAL FOR PARACENTESIS. KATERIN CANDELARIA INFORMED OF 4-8 LITERS DRAINAGE 25GM OF ALBUMIN AT 25%, AND GREATER THAN 8 LITERS 50 GMS ALBUMIN, NO DRAINAGE LIMIT. 7300 ML DRAINED, VERBAL ORDER FROM [facility]ENO PER PROTOCOL 25GM OF ALBUMIN TO GIVE.
--- NOTE | 2020-02-05 09:06 | Progress Note-Post Operative ---
Post-Operative Progess Note Surgeon (s)/Gis Physical Scientist (s) Surgeon THIERRY JOHANSEN DO Gis Physical Scientist: none Pre-Operative Diagnosis Ascites Post-Operative Diagnosis same Procedure & Operative Findings Date of Procedure 02/05/20 Procedure Performed/Findings Paracentesis with US guidance Anesthesia Type Local lidocaine Estimated Blood Loss Estimated blood loss (mL): scant Specimens/Packing Specimens Removed 7300 ml of Ascitic fluid THIERRY JOHANSEN DO Feb 05, 2020 09:06
--- NOTE | 2020-02-05 09:07 | Discharge Inst-Surgical ---
Discharge Inst-Surgical Depart Medication/Instructions New, Converted or Re-Newed RX: Other (No Rx needed) Patient Instructions Follow up Appt: Make appointment for 1 week. [phone] Instructions: May shower in 24 hours, no tub bath or soaking. No Smoking Skin/Wound Care: May remove bandages in am. Symptoms to Report: Appetite Changes, Extremity Discoloration, Numbness/Tingling, Swelling Increased, Bleeding Excessive, Eyesight Changes, Pain Increased, Urine Color Change, Constipation(Persistent), Fever over 101 degree F, Pain/Pressure in chest, Urinating Difficulty, Cough Up/Vomit Blood, Heart Beat Irreg/Pounding, Pain/Pressure in jaw, Cramps in feet or legs, Lightheadedness, Pain/Pressure in shoulder, Diarrhea(Persistent), Memory Changes Suddenly, Questions/Concerns, Weight gain consecutive days, Dizziness/Fainting, Nausea/Vomiting, Shortness of Breath, Weight gain over 2 pounds If questions or concerns contact your physician Or seek help at emergency department. Activity Activity as Tolerated: Yes Driving Instructions: You May Drive Diet Discharge Diet: No Restrictions Diet After 24 Hours: Clear Liquid if Nauseous If Any Problems/Questions/Issu: Contact Your Physician, Go to Emergency Room Skin/Wound Care Infection Signs and Symptoms: Increased Redness, Foul Odor of Wound, Increased Drainage, Skin Itchy or Has a Rash, Increased Swelling, Temperature Above 101 F Bathing Instructions: THIERRY Boyd DO Feb 05, 2020 09:07
[2020-02-05] MEDS ORDERED: ALBUMIN 25% 25 GM/100 ML 100 ML IV ONE ×2 (09:15→09:30)
--- NOTE | 2020-02-05 09:54 | Diagnostic Imaging Report ---
INDICATION: Ascites. Sonographic guidance was provided for Dr. Watters for the purpose of paracentesis. Multiple images demonstrate a large amount of ascites. IMPRESSION: Ascites. Sonographic guidance was provided for paracentesis. Dictated by: Dictated on workstation # [id number]
--- NOTE | 2020-02-05 20:15 | OPERATIVE REPORT ---
DATE OF SERVICE: PREOPERATIVE DIAGNOSIS: Ascites. POSTOPERATIVE DIAGNOSIS: Ascites. PROCEDURE: Ultrasound-guided paracentesis. SURGEON: Derek Watters DO KILN LOADER: None. ANESTHESIA: Local lidocaine. BLOOD LOSS: Scant. FLUIDS: None. SPECIMEN: 7300 mL of ascitic fluid. INDICATION FOR PROCEDURE: The patient is a 74-year-old male, who had increasing abdominal girth a history of ascites and needs to get this removed. FINDINGS: The patient had yellowish ascitic fluid removed approximately 7300 mL. PROCEDURE NOTE: After informed consent was obtained, the patient was in the same day room, timeout was performed and then the patient was sterilely prepped and draped in normal fashion. He had already been previously marked by the ultrasound and then ultrasound watched as I first infiltrated the skin with local and then made a small stab incision with #11 blade and then advanced the safe needle at the spot with ultrasound and marked gently into the abdomen, able to push through and then got a good flash of ascitic fluid and then pushed the catheter and pulled the needle out catheter, went in easily and then hooked this up to vacutainer and got out yellowish ascitic fluid. No bleeding at all, went through 8 vacutainer getting out 7300 mL. The patient tolerated the procedure. He was then removed. The catheter was removed and an area was cleaned and dried and bandaged. The bandage placed. He then received 25 mg of albumin tolerated the procedure. Sponge, instrument and needle count correct at the end of the case. Job ID: [id number] DocumentID: [id number] Dictated Date: 02/05/2020 12:00:01 Web Applications Developer Date: 02/05/2020 20:15:01 Dictated By: DEREK WATTERS DO
== END 2020-02-05 12:20 | disposition home or self-care (01) ==
LOC: SDC 06:53
PROVIDERS: ATTEND Surgery
DX: K74.60 Unspecified cirrhosis of liver (principal); R18.8 Other ascites
CPT/HCPCS: 49082; 76942; 96365; 96366

== ENCOUNTER 2020-03-09 05:38 | Outpatient (CLI) | payer MEDICARE ==
[~2020-03-09] VITALS: Ht 177 cm; Wt 91.8 kg
[2020-03-09] MEDS ORDERED: INSU100V5 SQ (13:09)
== END 2020-03-09 13:19 | disposition home or self-care (01) ==
LOC: PREOP 05:38
PROVIDERS: ATTEND Surgery
DX: Z01.818 Encounter for other preprocedural examination (principal)

== ENCOUNTER 2020-03-11 08:16 | Day surgery (SDC) | payer MEDICARE ==
[~2020-03-11] VITALS: Ht 177 cm; Wt 89.9 kg
[2020-03-11] VITALS (12 sets, daily range): BP systolic 107–124; BP diastolic 55–82
[2020-03-11] MEDS ORDERED: LACTATED RINGERS 1,000 ML IV PRN (08:21)
[2020-03-11] MEDS ORDERED: CLINDAMYCIN 600 MG/50 ML IVPB 50 ML IV ONE (08:30)
[2020-03-11] MEDS ORDERED: PROPOFOL INJECTION 0 ML IV ONE (10:00)
--- NOTE | 2020-03-11 10:44 | Progress Note-Pre Operative ---
Pre-Operative Progress Note H&P Reviewed The H&P was reviewed, patient examined and no changes noted. Time Seen by Provider: 10:42 Date H&P Reviewed: Mar 11, 2020 Time H&P Reviewed: 10:41 Pre-Operative Diagnosis: Hepatocellular CA, Ascites THIERRY JOHANSEN DO Mar 11, 2020 10:44
[2020-03-11] MEDS ORDERED: PROPOFOL INJECTION 50 ML IV ONE (10:56)
[2020-03-11] MEDS ORDERED: HEParin (CENTRAL IV FLUSH) 500 UNIT/5 ML SYR ONE ×2 (11:06→11:40)
[2020-03-11] MEDS ORDERED: 0.9% SODIUM CHLORIDE PF INJ 20 ML VIAL ONE (11:06)
[2020-03-11] MEDS ORDERED: BUP/EPI 0.5% 1:200,000 (MARCAINE) 10ML VIAL IJ ONE (11:07)
[2020-03-11] MEDS ORDERED: MIDAZOLAM 2 MG/2 ML (VERSED) VIAL ONE (11:28)
[2020-03-11] MEDS ORDERED: proPOfol 200 MG/20 ML (DIPRIVAN) VIAL IV ONE (12:54)
--- NOTE | 2020-03-11 13:05 | Progress Note-Post Operative ---
Post-Operative Progess Note Surgeon (s)/Solar Energy System Installer Helper (s) Surgeon DEREK WATTERS DO Solar Energy System Installer Helper: KARLI Pre-Operative Diagnosis Hepatocellular CA, Ascites Post-Operative Diagnosis Same plus venous insufficiency Procedure & Operative Findings Date of Procedure 03/11/20 Procedure Performed/Findings PROCEDURE: [Left] internal jugular port placement using ultrasound guidance. COMPLICATIONS: None. However, attempted Right Subclavian and then Right IJ; both unsuccessful. INDICATIONS: The patient is a 74 year old male [with Hepatocellular CA and Venous insufficiency]. Patient understands the risks and benefits of port placement and wished to proceed with the procedure. Consent was signed on the chart. PROCEDURE: The patient was taken to the operating suite, was prepped and draped in the sterile fashion. A surgical pause was performed. First attempted righ Subclavian placement, got a flash of blood but could not thread wire. Next attempted to use US and access the right IJ, watched needle go in but again could not thread the wire even with fluoroscopy. At this time then prepped left side and tried using Ultrasound to locate the internal jugular vein able to access it. Once located anesthetic was infiltrated above it. Using micro-access kit, the right internal vein was accessed. Dark nonpulsatile blood was withdrawn. The wire was inserted. Fluoroscopy assured proper placement. The needle was removed. The micro-access dilator was advanced over the wire and the wire was removed. The regular wire was inserted and fluoroscopy assured proper placement. The wire was then secured. Local anesthetic was used to anesthetize from the neck for tunneling down to the right chest and for pocket creation. A [#15] blade scalpel was used to make an incision over the [left] chest. Cautery was used to dissect down to the pectoral fascia. A pocket was created with blunt dissection. The dilator sheath was then advanced over the wire under fluoroscopy and the dilator and wire were removed. The Groshong catheter was inserted through the sheath and the sheath was then removed. The Groshong wire was removed. The catheter was then tunneled to the right chest pocket. Fluoroscopy was used to cut to length and this was then attached to the port which was then placed within the pocket. The port was then accessed without difficulty. It was then flushed with saline and then heparin. The subcutaneous tissues were then reapproximated using 3-0 Vicryl. The areas were then washed and dried. Skin Affix was placed over incision. The insertion point of the neck Skin Affix was placed over the incision. The patient tolerated the procedure well without complication and was taken to recovery room in stable condition. Chest x-ray is pending. PREOPERATIVE DIAGNOSIS: Ascites. POSTOPERATIVE DIAGNOSIS: Ascites. PROCEDURE: Ultrasound-guided paracentesis. SURGEON: Derek Watters DO WEDDING DECORATOR: None. ANESTHESIA: Local lidocaine. BLOOD LOSS: Scant. FLUIDS: None. SPECIMEN: Ascitic fluid. INDICATION FOR PROCEDURE: The patient is a 74-year-old male, who had increasing abdominal girth a history of ascites and needs to get this removed. FINDINGS: The patient had yellowish ascitic fluid removed. PROCEDURE NOTE: After informed consent was obtained, the patient was in the same day room, timeout was performed and then the patient was sterilely prepped and draped in normal fashion. He had already been previously marked by the ultrasound and then ultrasound watched as I first infiltrated the skin with local and then made a small stab incision with #11 blade and then advanced the safe needle at the spot with ultrasound and marked gently into the abdomen, able to push through and then got a good flash of ascitic fluid and then pushed the catheter and pulled the needle out catheter, went in easily and then hooked this up to vacutainer and got out yellowish ascitic fluid. No bleeding at all, drained by gravity in the OR and then used vacutainer in PACU to finish draining ascites. The patient tolerated the procedure. The catheter was removed and an area was cleaned and dried and bandaged. The bandage placed. He then received 25 mg of albumin tolerated the procedure. Sponge, instrument and needle count correct at the end of the case. Anesthesia Type MAC Estimated Blood Loss Estimated blood loss (mL): less than 10ml Specimens/Packing Specimens Removed ascitic fluid DEREK WATTERS DO Mar 11, 2020 13:05
--- NOTE | 2020-03-11 13:07 | Discharge Inst-Surgical ---
Discharge Inst-Surgical Depart Medication/Instructions New, Converted or Re-Newed RX: Other (pt has home meds) Patient Instructions Follow up Appt: Make appointment for 1 week. [phone] Instructions: No strenuous activity. May shower in 24 hours, no tub bath or soaking. Use incentive spirometer at home as directed. No Smoking Skin/Wound Care: May remove bandages in am. You need to leave the Dermabond on incision it will fall off on it's own. Symptoms to Report: Appetite Changes, Extremity Discoloration, Numbness/Tingling, Swelling Increased, Bleeding Excessive, Eyesight Changes, Pain Increased, Urine Color Change, Constipation(Persistent), Fever over 101 degree F, Pain/Pressure in chest, Urinating Difficulty, Cough Up/Vomit Blood, Heart Beat Irreg/Pounding, Pain/Pressure in jaw, Cramps in feet or legs, Lightheadedness, Pain/Pressure in shoulder, Diarrhea(Persistent), Memory Changes Suddenly, Questions/Concerns, Weight gain consecutive days, Dizziness/Fainting, Nausea/Vomiting, Shortness of Breath, Weight gain over 2 pounds If questions or concerns contact your physician Or seek help at emergency department. Activity Activity Instructions: Avoid Stress to Incision Driving Instructions: No Driving/Refer to Diet Discharge Diet: No Restrictions Diet After 24 Hours: Clear Liquid if Nauseous If Any Problems/Questions/Issu: Contact Your Physician, Go to Emergency Room Skin/Wound Care Infection Signs and Symptoms: Increased Redness, Foul Odor of Wound, Increased Drainage, Skin Itchy or Has a Rash, Increased Swelling, Temperature Above 101 F Bathing Instructions: Shower Stitches/Nohemi/Dermabond Dis: THIERRY Morris DO Mar 11, 2020 13:07
--- NOTE | 2020-03-11 13:09 | Anesthesia-General Post-Op ---
MAC Patient Condition Mental Status/LOC: Same as Preop Cardiovascular: Satisfactory Nausea/Vomiting: Absent Respiratory: Satisfactory Pain: Controlled Complications: Absent Post Op Complications Complications None Follow Up Care/Instructions Patient Instructions None needed. Anesthesiology Discharge Order Discharge Order Patient is doing well, no complaints, stable vital signs, no apparent adverse anesthesia problems. No complications reported per nursing. BOBY RUBIN CRNA Mar 11, 2020 13:09
[2020-03-11] MEDS ORDERED: ONDANSETRON 4 MG/2 ML (SDV) Z0FRAN IVP PRN (13:15)
[2020-03-11] MEDS ORDERED: morphine INJ 10 MG/ML 1ML (SYR OR VIAL) IVP ONE (13:15)
--- NOTE | 2020-03-11 15:54 | NUR ---
CALLED DR. JOHANSEN IN REGARDS OF PATIENT STATUS, RECEIVED ORDER TO STOP AT 7.8 LITERS OF FLUID REMOVAL AND TO FOLLOW ALBUMIN PROTOCOL FOR PARACENTESIS.
[2020-03-11] MEDS ORDERED: ALBUMIN 25% 25 GM/100 ML 100 ML IV ONE (16:00)
--- NOTE | 2020-03-11 16:15 | NUR ---
PARACENTESIS CATHETER REMOVED BY TEAGAN ECHOLS. TOTAL OF 7.8 LITERS REMOVED.
--- NOTE | 2020-03-11 16:24 | Diagnostic Imaging Report ---
INDICATION: Fluoroscopy during Port-A-Cath insertion. EXAMINATION: Fluoroscopy was provided in the OR during Port-A-Cath insertion. FINDINGS: 56 seconds of fluoroscopic time was utilized. Single image was obtained demonstrating a left-sided port with tip in the region of the cavoatrial junction. IMPRESSION: Fluoroscopy during port placement. Dictated on workstation # [id number]
== END 2020-03-11 18:20 ==
LOC: SDC 08:16
PROVIDERS: ATTEND Surgery
DX: C22.0 Liver cell carcinoma (principal); I10 Essential (primary) hypertension; K21.9 Gastro-esophageal reflux disease without esophagitis; E11.9 Type 2 diabetes mellitus without complications; E11.40 Type 2 diabetes mellitus with diabetic neuropathy, unspecified; K74.60 Unspecified cirrhosis of liver; R18.8 Other ascites; E66.9 Obesity, unspecified; Z68.28 Body mass index [BMI] 28.0-28.9, adult; Z79.899 Other long term (current) drug therapy; Z88.0 Allergy status to penicillin; Z88.5 Allergy status to narcotic agent; Z88.7 Allergy status to serum and vaccine; Z87.891 Personal history of nicotine dependence; Z80.9 Family history of malignant neoplasm, unspecified
CPT/HCPCS: 76000; 82962; 87081

== ENCOUNTER → 2020-03-24 | Outpatient (CLI) | payer MEDICARE ==
[~2020-03-24] VITALS: Ht 180.3 cm; Wt 83.2 kg
[~2020-03-24] MED LIST changes: +ALBUMIN 25% 25 GM/100 ML 100 ML IV ONE; -OXYC-465 PO; +OXYC-556 PO
[2020-03-24 15:07] LABS: ALBUMIN,BODY FLUID 0.7 G/DL; TOTAL PROTEIN,BODY FLUID 1.4 G/DL
[2020-03-24 15:15] LABS: BODY FLUID APPEARENCE SLT CLDY; BODY FLUID COLOR YELLOW; BODY FLUID RBC COUNT 1800 /uL; BODY FLUID SOURCE PERITON; BODY FLUID WBC TOTAL COUNT 256 /uL
[2020-03-24 15:28] LABS: BF OTHER CELLS 6 %; LYMPHOCYTES,BODY FLUID 80 %
--- NOTE | 2020-03-24 15:42 | Progress Note-Post Operative ---
Post-Operative Progess Note Surgeon (s)/Forest Fire Lookout (s) Surgeon THIERRY JOHANSEN DO Forest Fire Lookout: none Pre-Operative Diagnosis Hepatocellular CA, Ascites Post-Operative Diagnosis same Procedure & Operative Findings Date of Procedure 03/24/20 Procedure Performed/Findings INDICATION FOR PROCEDURE: The patient is a 74-year-old male, who had increasing abdominal girth a history of ascites and needs to get this removed. FINDINGS: The patient had yellowish ascitic fluid removed. PROCEDURE NOTE: After informed consent was obtained, the patient was in the Radiology procedure room, timeout was performed and then the patient was sterilely prepped and draped in normal fashion. He had already been previously marked by the ultrasound and then ultrasound watched as I first infiltrated the skin with local and then made a small stab incision with #11 blade and then advanced the safe needle at the spot with ultrasound and marked gently into the abdomen, able to push through and then got a good flash of ascitic fluid and then pushed the catheter and pulled the needle out catheter, went in easily and then hooked this up to vacutainer and got out yellowish ascitic fluid. No bleeding at all, drained approximately 5075ml of ascitic fluid. The patient tolerated the procedure. The catheter was removed and an area was cleaned and dried and bandaged. He then received 25 mg of albumin tolerated the procedure. Sponge, instrument and needle count correct at the end of the case. Anesthesia Type Local lidocaine Estimated Blood Loss Estimated blood loss (mL): scant Specimens/Packing Specimens Removed 5075ml of ascitic fluid THIERRY JOHANSEN DO Mar 24, 2020 15:42
--- NOTE | 2020-03-24 17:26 | Diagnostic Imaging Report ---
INDICATION: Liver carcinoma and ascites. EXAMINATION: Sonography guidance was provided for Dr. Watters for performance of paracentesis. FINDINGS: Images demonstrate a large amount of ascites. Right lower quadrant was marked for paracentesis. IMPRESSION: Ultrasound guidance for performance of paracentesis. Dictated by: Dictated on workstation # [id number]
== END ==
LOC: RAD 11:48
PROVIDERS: ATTEND Surgery
DX: C22.0 Liver cell carcinoma (principal); R18.8 Other ascites
CPT/HCPCS: 49083; 82042; 84157; 87070; 87205; 89051

== ENCOUNTER 2020-03-30 14:09 | Inpatient (IN) | payer MEDICARE ==
[~2020-03-30] VITALS: Ht 180.3 cm; Wt 82.0 kg
[~2020-03-30 14:09] MED LIST changes: -ALBUMIN 25% 25 GM/100 ML 100 ML IV ONE
--- NOTE | 2020-03-30 14:28 | NUR ---
TJ RAMIREZ admitted to room 415-1, with an admitting diagnosis of PNEMONIA, on 03/30/20 from via DIRECT ADMIT, accompanied by .TJ RAMIREZ introduced to surroundings, call light, bed controls, phone, TV, temperature control, lights, meal times, smoking policy, visitor policy, side rail policy, bathrooms and showers. Patient Rights given to patient in the handbook. TJ RAMIREZ verbalizes understanding that [facility] is not responsible for the loss or damage to any personal effects or valuables that are kept in the patients posession during their hospitalization. TJ RAMIREZ verbalizes understanding of Interdisciplinary Patient Education. Patient and/or family were informed about the Rapid Response Team and its purpose.
[2020-03-30] MEDS ORDERED: VANCOMYCIN INJECTION 0.1 MG in NS (IVPB) 250 ML IV SCH (14:45)
--- NOTE | 2020-03-30 15:15 | History & Physical-Hospitalist ---
History of Present Illness HPI/Chief Complaint the patient is a 74-year-old white male currently undergoing immunotherapy for advanced hepatocellular carcinoma due to underlying cirrhosis most likely as a result of nonalcoholic fatty liver disease who had been tolerating therapy well. 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 He was doing well with this until Saturday when he started running fever with increase nonproductive cough. He lost his appetite reports still has sense of taste and smell and came with his who stated that he had been a little more confused and very weak. Neither he or his were aware of any COVID exposure that is known she is been well he has not been around anybody that he knows of who has been sick but he has been in and out of doctor's offices several over the past 2 weeks. He denies chest pain or abdominal pain. He had blood work done to cancer [facility] earlier today there were pretty much his baseline. His past me dical history is seen for type II diabetes and plaque psoriasis. He does have known esophageal varices with one possible variceal-related bleed several years ago. He had banding on one or 2 occasions but it is been over a year since his last banding or EGD. He denies melena or bright red blood per rectum.O2 saturations in the office were 88 percent on room air with a heart rate in the 70s although patient is on beta luis therapy with no past history of known congestive heart failure systolic or diastolic Date Seen 03/30/20 Time Seen by a Provider: 13:30 Attending Physician Oscar Zhong MD PCP Oscar Zhong MD Referring Physician Date of Admission Mar 30, 2020 at 14:30 Home Medications & Allergies Home Medications Reviewed patient Home Medication Reconciliation performed by pharmacy medication reconciliations animal husbandry technician and/or nursing. Patients Allergies have been reviewed. Allergies Allergies Coded Allergies Penicillins (Verified Allergy, Unknown, Pt rec Cefepime & Rocephin in the past, 04/01/20) Tetanus Vaccines and Toxoid (Verified Allergy, Unknown, 03/09/20) codeine (Verified Allergy, Unknown, 03/09/20) Past Ezmzrho-Vyyeha-Jonwdi Hx Past Med/Social Hx: Reviewed and Corrections made Patient Social History Former Smoker, Quit: Jun 18, 1998 2nd Hand Smoke Exposure: Yes Recent Hopitalizations: Yes (DECEMBER 2019-ASCITES/FEVER) Immunizations Up To Date Tetanus Booster (TDap): Unknown Date of Pneumonia Vaccine: Apr 22, 2017 Date of Influenza Vaccine: Apr 20, 2019 Seasonal Allergies Seasonal Allergies: No Past Medical History Currently Using CPAP: No Currently Using BIPAP: No Cardiac: High Cholesterol, Hypertension Neurological: Neuropathy Reproductive: No Sexually Transmitted Disease: No HIV/AIDS: No Gastrointestinal: Gastroesophageal Reflux, Ulcer, Cirrhosis Musculoskeletal: Degenerate Disk Disease Endocrine: Diabetes, Insulin dep Cancer: Liver Skin/Integumentary: Psoriasis History of Blood Disorders: No Adverse Reaction to Blood Dale: No (N/A) Family History Arthritis 19 MOTHER, Onset:Unknown Cataracts 19 MOTHER, Onset:Unknown Diabetes mellitus MATERNAL GRANDMOTHER, Onset:Unknown FH: blindness MATERNAL GRANDMOTHER, Onset:Unknown (BLINDNESS DUE TO DIABETES) FH: lung cancer 19 MOTHER, Onset:Unknown FH: stroke MATERNAL GRANDMOTHER, Onset:Unknown Cancer, Diabetes Review of Systems Constitutional: see HPI Physical Exam Physical Exam Vital Signs Vital Signs - First Documented 03/30/20 15:16 Temp 38.1 Pulse 76 Resp 20 B/P (MAP) 127/67 Pulse Ox 90 O2 Delivery Room Air Capillary Refill : Height, Weight, BMI Height: 5'11.00" Weight: 190lbs. 2.0oz. 86.811363wy; 25.59 BMI Method: General Appearance: Mild Distress HEENT: Pharynx Normal, Scleral Icterus (L), Scleral Icterus (R) Respiratory: No Accessory Muscle Use, Respiratory Distress (mild), Other (audible rhonchi noted without stethoscope on auscultation coarse rhonchi noted right lower lobe greater than left but heard throughout) Cardiovascular: Regular Rate, Rhythm, No Edema, No Gallop, No JVD, No Murmur, Normal Peripheral Pulses Gastrointestinal: Normal Bowel Sounds, No Organomegaly, No Pulsatile Mass, Soft, Tenderness (mild most prominent at the epigastrium this patient's baseline) Extremity: Normal Inspection, No Calf Tenderness, No Pedal Edema Neurologic/Psychiatric: Other (alert but fatigued oriented times 2) Skin: Warm/Dry Results Results/Procedures Labs Laboratory Tests 03/31/20 04:30 04/01/20 04:40 Patient resulted labs reviewed. Assessment/Plan Admission Diagnosis A/P 1. Probable pneumonia versus bad bronchiolitis in an individual at baseline with poor performance status and mild pancytopenia to be considered immune compromise due to his history of hepatocellular carcinoma and underlying cirrhosis. We will initiate broad-spectrum antibiotic coverage he does have Pseudomonas risk as well as MRSA risk so we'll initiate cefepime and vancomycin empirically and attempt at sputum culture. COVID infection is less likely but will be obtaining COVID studies to rule out. 2. Cirrhosis with refractory ascites aggravated by hepatocellular carcinoma. On immunotherapy the patient has had a good biochemical response thus far with alpha-fetoprotein levels after only roughly a month of therapy decreasing from over 20,000 to 800. 3. Patient likely hypovolemic albeit mildly. Will hold propranolol and IV fluids for now will await chest x-ray results and a BNP level. If the patient becomes hypotensive we will need IV fluids despite his refractory ascites. 4. Type II diabetes mellitus continue short acting sulfonylurea therapy and fingerstick monitoring. Admission Status: Inpatient Order (span 2 midnights) Reason for Inpatient Admission: see admission diagnosis OSCAR ZHONG MD Mar 30, 2020 15:15
[2020-03-30 15:16] VITALS: BP 127/67
--- NOTE | 2020-03-30 15:54 | NUR ---
PTD VANCOMYCIN LABS: 81.6 KG, SCr 1.23, CrCl 56.9, BMI 25.1 VANCOMYCIN LOADING DOSE 20MG/KG = 1632 ~ 1500 MG. MAINT DOSE 15MG/KG = 1224 ~ 1250 MG Q24H. VANCOMYCIN TROUGH DUE 04/02 @ 1500. IF TROUGH IS >20, HOLD DOSE AND NOTIFY PHARMACY FOR ADJUSTMENTS.
[2020-03-30] MEDS ORDERED: VANCOMYCIN 1500 MG/NS 500 ML IVPB IV NR ×2 (16:00)
[2020-03-30] MEDS ORDERED: FLU QUAD HIGH DOSE 240 MCG/0.7 ML 2020-21 (FLUZONE) IM ONE (16:15)
[2020-03-30] MEDS: ENOXAPARIN 40 MG/0.4 ML (LOVENOX) SYR SC SCH (16:17)
[2020-03-30 17:00] VITALS: BP 118/62
--- NOTE | 2020-03-30 17:12 | Diagnostic Imaging Report ---
INDICATION: Cough and wheezing, history of liver carcinoma. TECHNIQUE: Two-view chest from 03/30/2020. FINDINGS: There is bibasilar atelectasis. No focal infiltrates. No effusions. Azygos lobe is incidentally noted. Heart is unremarkable. Pulmonary vasculature is slightly congested. There is left-sided chest port with the tip in the distal SVC. IMPRESSION: 1. Bibasilar atelectasis. Mild infiltrates not excluded but felt to be less likely. 2. Pulmonary vascular congestion. Dictated by: Dictated on workstation # [id number]
--- NOTE | 2020-03-30 17:22 | NUR ---
PHARMACY CALLED REGARDING ALLERGY TO PCN. PT IS ORDERED CEFEPIME IV, PT AND ARE NOT SURE IF THE PT HAS RECEIVED THIS MED BEFORE, DR ZHONG NOTIFED REGARDING ALLERGY OR IF THE PT HAS EVER BEEN GIVEN THIS ANTIBIOTIC IN THE PAST. AWAITING TEXT OR CALL BACK.
--- NOTE | 2020-03-30 17:30 | NUR ---
OK TO ADMINISTER CEFEPIME PER DR ZHONG, PHARMACY NOTIFIED
[2020-03-30 19:30] VITALS: BP 109/62
[2020-03-30] MEDS: oxyCODONE/APAP 10/325MG (PERCOCET 10) TABLET PO PRN (20:28)
[2020-03-30] MEDS: LACTULOSE SYRUP 10GM/15ML (ENULOSE) 30ML UDC PO SCH (20:28)
[2020-03-30] MEDS: CEFEPIME INJECTION 2,000 MG in WATER (STERILE) FOR INJECTION 20 ML IV SCH (20:29)
[2020-03-30] MEDS ORDERED: ACETAMINOPHEN 325 MG TABLET PO PRN (21:15)
--- NOTE | 2020-03-30 21:20 | NUR ---
THIS NURSE RECEIVED A PHONE CALL BACK FROM DR. ZHONG AFTER A PREVIOUS ATTEMPT ABOUT THIS PT'S TEMPERATURE AT 0730, WHICH WAS 100.1. ORDERED TYLENOL 650MG PO PRN Q6 HRS FOR PAIN/TEMPERATURE, AND AN INCENTIVE SPIROMETER VIA TELEPHONE. WILL CONTINUE TO MONITOR PTS STATUS.
[2020-03-31] VITALS: BP 116/65
[2020-03-31 04:00] VITALS: BP 112/65
[2020-03-31 04:46] LABS: BASOPHILS % (AUTO) 1 % (0-10); EOSINOPHILS # (AUTO) 0.4 10^3/uL (0.0-0.3); EOSINOPHILS % (AUTO) 9 % (0-10); HEMATOCRIT 33 % (40-54); HEMOGLOBIN 10.8 G/DL (13.3-17.7); LYMPHOCYTES # (AUTO) 0.9 X 10^3 (1.0-4.0); LYMPHOCYTES % (AUTO) 22 % (12-44); MEAN CORPUSCULAR HEMOGLOBIN 30 PG (25-34); MEAN CORPUSCULAR HGB CONC 33 G/DL (32-36); MEAN CORPUSCULAR VOLUME 92 FL (80-99); MEAN PLATELET VOLUME 10.2 FL (7.4-10.4); MONOCYTES # (AUTO) 0.6 X 10^3 (0.0-1.0); MONOCYTES % (AUTO) 14 % (0-12); NEUTROPHILS # (AUTO) 2.3 X 10^3 (1.8-7.8); NEUTROPHILS % (AUTO) 55 % (42-75); PLATELET COUNT 71 10^3/uL (130-400); WHITE BLOOD COUNT 4.2 10^3/uL (4.3-11.0)
[2020-03-31 05:07] LABS: ALANINE AMINOTRANSFERASE 16 U/L (0-55); ALBUMIN 2.4 GM/DL (3.2-4.5); ALKALINE PHOSPHATASE 97 U/L (40-136); BUN/CREATININE RATIO 13; CALCIUM 8.6 MG/DL (8.5-10.1); CARBON DIOXIDE 28 MMOL/L (21-32); CHLORIDE 94 MMOL/L (98-107); CREATININE SERUM 0.96 MG/DL (0.60-1.30); GFR ESTIMATED > 60; GLUCOSE 110 MG/DL (70-105); POTASSIUM 3.6 MMOL/L (3.6-5.0); SODIUM 132 MMOL/L (135-145)
[2020-03-31] MEDS: glipiZIDE 5 MG (GLUCOTROL) TAB PO SCH (05:49)
[2020-03-31 07:29] VITALS: BP 107/67
[2020-03-31] MEDS: LACTULOSE SYRUP 10GM/15ML (ENULOSE) 30ML UDC PO SCH ×2 (09:39→20:09)
[2020-03-31] MEDS: PANTOPRAZOLE 40 MG (PROTONIX) TAB PO SCH (09:39)
[2020-03-31] MEDS: CEFEPIME INJECTION 2,000 MG in WATER (STERILE) FOR INJECTION 20 ML IV SCH (09:40)
--- NOTE | 2020-03-31 10:57 | Physician Query Clarification ---
PQ-Further Specificity Admission/Discharge Admission Date: Mar 30, 2020 at 14:30 Discharge Date: Dr. Zhong, The medical record reflects the following clinical scenario: History/Risk Factors: Advanced hepatocellular carcinoma Cirrhosis due to nonalcoholic fatty liver disease Pancytopenia Clinical Findings:Pancytopenia documented on H&P. WBC 4.2, RBC 3.57, Hgb 10.8 and platelet count 71. Treatment: Immunotherapy for advanced hepatocellular carcinoma. Question: Can you further specify Pancytopenia per the clinical indicators above? Please document a response in the Progress Notes or Discharge Summary. 1. Pancytopenia due to chemotherapy. 2. Pancytopenia due to other drugs. 3. Other, with explanation of the clinical findings. 4. Clinically undetermined, no explanation for the clinical findings. PHYSICIAN RESPONSE Can you specify per above: Other, explanation/clinical finding Explanation/Clinical Findings due to cirrhosis with portal hypertension Please remember a lack of response to the above will prompt a phone page by CDI/Coding staff. In responding to this query, please exercise your independent professional judgment. The purpose of this communication is to more accurately reflect the complexity of your patients condition. The fact that a question is asked does not imply that any particular answer is desired or expected. Thank you for your timely response to this clarification. Requestors name: Kait Berman [facility] Phone # ext [phone] or [phone] THIS PHYSICIAN QUERY FORM IS A PERMANENT PART OF THE MEDICAL RECORD KAIT BERMAN Mar 31, 2020 10:57 OSCAR ZHONG MD Apr 01, 2020 10:43
[2020-03-31 12:00] VITALS: BP 108/68
--- NOTE | 2020-03-31 14:03 | NUR ---
SPOKE WITH THE PT (I CALLED HIS ROOM PHONE) AND THE PT SUGGESTED I CALL HIS NICOLETTE, I ALSO CALLED [facility] TO COMPLETE THE MED REC BUMEX 1MG LAST FILLED 12-10-2019 #120/60DS- DIRECTIONS SHOW 1 TAB BID HOWEVER PT IS JUST TAKING 1 TAB DAILY THEREFORE THE REFILL IS NOT PAST DUE AND I DID NOT INCLUDE THE DATE ON THE MED REC 03-23-2020 PERCOCET 10/325MG #120 03-12-2020 OMEPRAZOLE 20MG #30/30DS 03-12-2020 GLIPIZIDE 10MG #90/90DS 03-12-2020 EPLERENONE 50MG #30/30DS 02-12-2020 OMEPRAZOLE 20NG #30/DS PT IS NO LONGER TAKING INSULIN NO OTC MEDICATIONS
[2020-03-31] MEDS ORDERED: MELATONIN 3 MG TABLET PO PRN (14:45)
[2020-03-31] MEDS ORDERED: cefTRIAXone FOR IV USE 1,000 MG in WATER (STERILE) FOR INJECTION 10 ML IV SCH (14:45)
[2020-03-31] MEDS ORDERED: ANTACID SUSP 30 ML UDC (MYLANTA) PO PRN (14:45)
[2020-03-31] MEDS ORDERED: polyethylene glycoL POWDER 17 GM (MIRALAX) PACK PO PRN (14:45)
[2020-03-31] MEDS ORDERED: ONDANSETRON 4 MG (ZOFRAN) ORAL DISSOLVE TAB PO PRN (14:45)
[2020-03-31] MEDS ORDERED: BISACODYL 10 MG SUPP (DULCOLAX) PR PRN (14:45)
[2020-03-31] MEDS ORDERED: ONDANSETRON 4 MG/2 ML (SDV) Z0FRAN IV PRN (14:45)
--- NOTE | 2020-03-31 14:46 | Progress Note - Hospitalist ---
Subjective HPI/CC On Admission Date Seen by Provider: Mar 31, 2020 Time Seen by Provider: 10:40 the patient is a 74-year-old white male currently undergoing immunotherapy for advanced hepatocellular carcinoma due to underlying cirrhosis most likely as a result of nonalcoholic fatty liver disease who had been tolerating therapy well. 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 He was doing well with this until Saturday when he started running fever with increase nonproductive cough. He lost his appetite reports still has sense of taste and smell and came with his who stated that he had been a little more confused and very weak. Neither he or his were aware of any COVID exposure that is known she is been well he has not been around anybody that he knows of who has been sick but he has been in and out of doctor's offices several over the past 2 weeks. He denies chest pain or abdominal pain. He had blood work done to [facility] earlier today there were pretty much his baseline. His past medical history is seen for type II diabetes and plaque psoriasis. He does have known esophageal varices with one possible variceal-related bleed several years ago. He had banding on one or 2 occasions but it is been over a year since his last banding or EGD. He denies melena or bright red blood per rectum.O2 satur ations in the office were 88 percent on room air with a heart rate in the 70s although patient is on beta luis therapy with no past history of known congestive heart failure systolic or diastolic Subjective/Events-last exam He reports feeling a bit better today. His shortness of breath is improving.he denies any fevers or chills. He feels like there is phlegm in his throat that won't come up. He denies any chest pain. He denies any abdominal pain. He denies any nausea or vomiting. He is not having any diarrhea. Objective Exam Vital Signs Vital Signs Date Time Temp Pulse Resp B/P (MAP) Pulse Ox O2 Delivery O2 Flow Rate FiO2 03/31/20 12:00 36.2 70 20 108/68 (81) 96 Room Air Capillary Refill : Less Than 3 SecondsLess Than 3 Seconds General Appearance: No Apparent Distress, Chronically ill HEENT: PERRL/EOMI, Pharynx Normal Neck: Normal Inspection, Supple Respiratory: Lungs Clear, Normal Breath Sounds, No Respiratory Distress Cardiovascular: Regular Rate, Rhythm, No Murmur Gastrointestinal: Normal Bowel Sounds, Soft, Distended Extremity: Normal Inspection, Non Tender, Pedal Edema Neurologic/Psychiatric: Alert, Oriented x3, No Motor/Sensory Deficits, Normal Mood/Affect Skin: Warm/Dry, Jaundice Results/Procedures Lab Laboratory Tests 03/31/20 04:30 Patient resulted labs reviewed. Assessment/Plan Assessment and Plan Assess & Plan/Chief Complaint Possible pneumonia WBC within normal limits, afebrile procalcitonin within normal limits no oxygen requirement Chest x-ray with bibasilar atelectasis, infiltrates cannot be ruled out Started on vancomycin and cefepime Transition to Rocephin Hepatocellular carcinoma Cirrhosis Receiving immunotherapy Type II diabetes mellitus Continue glipizide Sliding scale insulin Pancytopenia likely due to liver disease DVT Prophylaxis: Lovenox Diagnosis/Problems Diagnosis/Problems (1) PNA (pneumonia) Status: Acute (2) Pancytopenia Status: Acute (3) HCC (hepatocellular carcinoma) Status: Chronic (4) Cirrhosis Status: Chronic (5) T2DM (type 2 diabetes mellitus) Status: Chronic Qualifiers: Diabetes mellitus correction insulin use: without correction use Diabetes mellitus complication status: without complication Qualified Codes: E11.9 - Type 2 diabetes mellitus without complications Clinical Quality Measures DVT/VTE Risk/Contraindication: Risk Factor Score Per Nursin RFS Level Per Nursing on Admit: 4+=Very High ELEANOR PINEDA MD Mar 31, 2020 14:45
[2020-03-31] MEDS ORDERED: LORATADINE (CLARITIN) 10 MG TAB ONE (15:11)
[2020-03-31] MEDS ORDERED: guaiFENesin (MUCINEX) 600 MG TAB PO ONE (15:12)
[2020-03-31] MEDS ORDERED: guaiFENesin (MUCINEX) 600 MG TAB PO NR (15:15)
[2020-03-31] MEDS ORDERED: LORATADINE (CLARITIN) 10 MG TAB PO NR (15:15)
[2020-03-31] MEDS: ENOXAPARIN 40 MG/0.4 ML (LOVENOX) SYR SC SCH (15:16)
[2020-03-31] MEDS: inSUlin ASPART (NovoLOG) 1 UNIT/0.01 ML (CHARGE PER UNIT) SC SCH ×2 (15:24→21:00)
[2020-03-31] MEDS ORDERED: VANCOMYCIN 1250 MG/NS 250 ML IVPB IV SCH ×2 (16:00)
[2020-03-31 16:42] VITALS: BP 108/64
[2020-03-31] MEDS: guaiFENesin (MUCINEX) 600 MG TAB PO SCH (20:09)
[2020-03-31] MEDS: oxyCODONE/APAP 10/325MG (PERCOCET 10) TABLET PO PRN (20:10)
[2020-03-31 21:03] VITALS: BP 102/59
[2020-04-01] VITALS: BP 100/62
[2020-04-01 04:00] VITALS: BP 123/67
[2020-04-01 04:54] LABS: BASOPHILS % (AUTO) 1 % (0-10); EOSINOPHILS # (AUTO) 0.4 10^3/uL (0.0-0.3); EOSINOPHILS % (AUTO) 11 % (0-10); HEMATOCRIT 32 % (40-54); HEMOGLOBIN 10.9 G/DL (13.3-17.7); LYMPHOCYTES # (AUTO) 0.7 X 10^3 (1.0-4.0); LYMPHOCYTES % (AUTO) 21 % (12-44); MEAN CORPUSCULAR HEMOGLOBIN 31 PG (25-34); MEAN CORPUSCULAR HGB CONC 34 G/DL (32-36); MEAN CORPUSCULAR VOLUME 91 FL (80-99); MEAN PLATELET VOLUME 10.2 FL (7.4-10.4); MONOCYTES # (AUTO) 0.6 X 10^3 (0.0-1.0); MONOCYTES % (AUTO) 18 % (0-12); NEUTROPHILS # (AUTO) 1.6 X 10^3 (1.8-7.8); NEUTROPHILS % (AUTO) 49 % (42-75); PLATELET COUNT 65 10^3/uL (130-400); WHITE BLOOD COUNT 3.2 10^3/uL (4.3-11.0)
[2020-04-01 04:58] LABS: CHLORIDE 94 MMOL/L (98-107); POTASSIUM 3.1 MMOL/L (3.6-5.0); SODIUM 132 MMOL/L (135-145)
[2020-04-01 04:59] LABS: CALCIUM 8.8 MG/DL (8.5-10.1)
[2020-04-01 05:00] LABS: GLUCOSE 96 MG/DL (70-105)
[2020-04-01 05:01] LABS: CARBON DIOXIDE 29 MMOL/L (21-32)
[2020-04-01] MEDS: inSUlin ASPART (NovoLOG) 1 UNIT/0.01 ML (CHARGE PER UNIT) SC SCH ×2 (05:02→11:24)
[2020-04-01 05:04] LABS: GFR ESTIMATED > 60
[2020-04-01 05:05] LABS: BUN/CREATININE RATIO 12
[2020-04-01] MEDS: glipiZIDE 5 MG (GLUCOTROL) TAB PO SCH (05:33)
[2020-04-01 08:00] VITALS: BP 125/75
[2020-04-01] MEDS ORDERED: MAGNESIUM 1 GM/100 ML IVPB 100 ML IV SCH (08:45)
[2020-04-01] MEDS ORDERED: KCL 20 MEQ TAB (K-DUR) PO SCH (08:45)
[2020-04-01] MEDS ORDERED: POTASSIUM CL 10MEQ/50ML IVPB 50 ML IV SCH (08:45)
[2020-04-01] MEDS ORDERED: KCL 20 MEQ TAB (K-DUR) PO NR (08:45)
[2020-04-01] MEDS: guaiFENesin (MUCINEX) 600 MG TAB PO SCH (08:47)
[2020-04-01] MEDS: LACTULOSE SYRUP 10GM/15ML (ENULOSE) 30ML UDC PO SCH (08:47)
[2020-04-01] MEDS: PANTOPRAZOLE 40 MG (PROTONIX) TAB PO SCH (08:47)
[2020-04-01] MEDS ORDERED: KCL 10 MEQ TAB (MICRO K) PO ONE (09:00)
[2020-04-01] MEDS ORDERED: LORATADINE (CLARITIN) 10 MG TAB PO SCH (09:00)
[2020-04-01] MEDS ORDERED: CEFDINIR 300 MG (OMNICEF) CAP PO SCH (09:00)
[2020-04-01] MEDS ORDERED: CEFD300C3 PO (10:45)
[2020-04-01 11:15] VITALS: BP 125/75
--- NOTE | 2020-04-01 13:07 | NUR ---
RD ASSESSMENT PMHx: hypercholesterolemia; HTN; GERD; cirrhosis; DM; CA(liver) PT INTERACTION: Pt was awake and pleasant during nutrition assessment. Pt states current appetite is "a little better." Note avg PO intake 38% x1d, per chart review. Pt states following a regular diet at home, and has no issues with chewing/swallowing food. Pt states no recent issues with nausea, vomiting, or diarrhea. Pt states some recent issues with constipation, and that his last BM was 04/01. Note pt currently on bowel regimen of bisacodyl PRN; and miralax PRN, per chart review. Pt states recent wt loss and attributes it to "fluid taken off." Note unable to determine recent wt hx, per chart review. Pt states current DM management is pretty good, and that his average blood glucose levels are between 90-120. Note unable to determine recent HbA1c, per chart review. ABNORMAL NUTRITION-RELATED LAB VALUES LOW: Na 132; K 3.1; Cl 94 HIGH: Est. kcal needs: 2050 kcal | 25 kcal/kg Est. Pro needs: 66 g Pro | 0.8 g Pro/kg PES STATEMENT: Inadequate oral intake (NI-2.1) related to loss of appetite | constipation as evidenced by pt interview | avg PO intake 38% x1d INTERVENTION: Continue with current diet order of CHO 45g/m 3snack diet. Add Glucerna (vary) to meals TID, for increased kcal intake. Provides 220 kcal and 10 g Pro per serving. Offered diet education on DM management, but pt declined at this time. Will continue to follow and reassess as pt needs, intake, and status change. MONITOR/EVALUATE: PO Intake; Plan of Care; Hydration Status; Weight Status; Lab Values To Castillo, MS, RD, LD
--- NOTE | 2020-04-01 14:05 | Discharge Summary ---
Discharge Summary Hospital Course Was the Problem List Reviewed?: Yes Problems/Dx: (1) PNA (pneumonia) Status: Acute Qualifiers: Qualified Codes: J18.9 - Pneumonia, unspecified organism (2) Pancytopenia Status: Acute (3) HCC (hepatocellular carcinoma) Status: Chronic (4) Cirrhosis Status: Chronic (5) T2DM (type 2 diabetes mellitus) Status: Chronic Qualifiers: Qualified Codes: E11.9 - Type 2 diabetes mellitus without complications Hospital Course Date of Admission: Mar 30, 2020 at 14:30 Admission Diagnosis : pneumonia Family Physician/Provider: Oscar Zhong MD Date of Discharge: 04/01/20 Discharge Diagnosis: pneumonia Hospital Course: Ray Zuniga is a 74-year-old male with past medical history of hepatocellular carcinoma on immunotherapy who presented with fever and cough. He had a chest x-ray which was concerning for possible pneumonia. He was started on IV antibiotics and improved rapidly. He was transitioned to oral Omnicef and will complete a course of antibiotics as an outpatient. He was not requiring any supplemental oxygen. His course is complicated by pancytopenia which was thought to be due to his liver disease. He should follow-up with Dr. Zhong in about a week. Labs and Pending Lab Test: Laboratory Tests 03/31/20 15:23: Glucometer 96 03/31/20 16:36: Glucometer 124H 03/31/20 21:05: Glucometer 109 04/01/20 04:40: White Blood Count 3.2L, Red Blood Count 3.57L, Hemoglobin 10.9L, Hematocrit 32L, Mean Corpuscular Volume 91, Mean Corpuscular Hemoglobin 31, Mean Corpuscular Hemoglobin Concent 34, Red Cell Distribution Width 18.7H, Platelet Count 65L, Mean Platelet Volume 10.2, Neutrophils (%) (Auto) 49, Lymphocytes (%) (Auto) 21, Monocytes (%) (Auto) 18H, Eosinophils (%) (Auto) 11H, Basophils (%) (Auto) 1, Neutrophils # (Auto) 1.6L, Lymphocytes # (Auto) 0.7L, Monocytes # (Auto) 0.6, Eosinophils # (Auto) 0.4H, Basophils # (Auto) 0.0, Sodium Level 132L, Potassium Level 3.1L, Chloride Level 94L, Carbon Dioxide Level 29, Anion Gap 9, Blood Urea Nitrogen 11, Creatinine 0.90, Estimat Glomerular Filtration Rate > 60, BUN/Creatinine Ratio 12, Glucose Level 96, Calcium Level 8.8, Magnesium Level 1.8 04/01/20 11:17: Glucometer 115H Home Meds Active Cefdinir 300 Mg Capsule 300 Mg PO BID 5 Days Reported Propranolol HCl ER (Propranolol HCl) 60 Mg Cap.sa.24h 60 Mg PO DAILY Glipizide 10 Mg Tablet 10 Mg PO DAILY Oxycodone-Acetaminophen 10-325 (Oxycodone HCl/Acetaminophen) 1 Each Tablet 1 Ea PO Q6H PRN Eplerenone 50 Mg Tablet 50 Mg PO DAILY Bumetanide 1 Mg Tablet 1 Mg PO DAILY Omeprazole 20 Mg Capsule.dr 20 Mg PO DAILY Assessment/Pt Instructions take medications as prescribed. Complete her course of antibiotics even if you're feeling better. Follow-up with your primary care physician, Dr. Zhong. Discharge Planning: <30 minutes discharge planning Discharge Instructions Discharge Diet: No Restrictions Activity as Tolerated: Yes Discharge Physical Examination Vital Signs Vital Signs Date Time Temp Pulse Resp B/P (MAP) Pulse Ox O2 Delivery O2 Flow Rate FiO2 04/01/20 11:15 36.1 80 18 125/75 96 Room Air General Appearance: No Apparent Distress, Chronically ill Respiratory: Lungs Clear, Normal Breath Sounds, No Respiratory Distress Cardiovascular: Regular Rate, Rhythm, No Murmur Gastrointestinal: Normal Bowel Sounds, Soft, Distended Extremity: Normal Inspection, Non Tender, Pedal Edema Skin: Normal Color, Warm/Dry Neurologic/Psychiatric: Alert, Oriented x3, No Motor/Sensory Deficits, Normal Mood/Affect Allergies: Coded Allergies: Penicillins (Verified Allergy, Unknown, Pt rec Cefepime & Rocephin in the past, 04/01/20) Tetanus Vaccines and Toxoid (Verified Allergy, Unknown, 03/09/20) codeine (Verified Allergy, Unknown, 03/09/20) Copy Copies To 1: OSCAR ZHONG MD Discharge Summary Date of Admission Mar 30, 2020 at 14:30 Date of Discharge Apr 01, 2020 at 11:40 Discharge Date: Apr 01, 2020 Discharge Time: 11:40 Admission Diagnosis Pneumonia Discharge Diagnosis Pneumonia (1) PNA (pneumonia) Status: Acute Qualifiers: Qualified Codes: J18.9 - Pneumonia, unspecified organism (2) Pancytopenia Status: Acute (3) HCC (hepatocellular carcinoma) Status: Chronic (4) Cirrhosis Status: Chronic (5) T2DM (type 2 diabetes mellitus) Status: Chronic Qualifiers: Qualified Codes: E11.9 - Type 2 diabetes mellitus without complications Clinical Quality Measures DVT/VTE Risk/Contraindication: Risk Factor Score Per Nursin RFS Level Per Nursing on Admit: 4+=Very High ELEANOR PINEDA MD Apr 01, 2020 14:05
[2020-04-01] MEDS ORDERED: KCL 20 MEQ TAB (K-DUR) PO ONE (21:00)
[2020-04-02] MEDS ORDERED: TROUGH ORDER-PHARMACY XX NR (15:00)
== END 2020-04-01 11:40 | disposition home or self-care (01) | DRG 194 ==
LOC: 4TH 14:30
PROVIDERS: ADMIT Internal Medicine; ATTEND Internal Medicine
DX: J18.9 Pneumonia, unspecified organism (principal); J21.9 Acute bronchiolitis, unspecified; D61.818 Other pancytopenia; C22.8 Malignant neoplasm of liver, primary, unspecified as to type; I85.00 Esophageal varices without bleeding; K76.6 Portal hypertension; K74.60 Unspecified cirrhosis of liver; K76.0 Fatty (change of) liver, not elsewhere classified; E86.1 Hypovolemia; R53.1 Weakness; R41.0 Disorientation, unspecified; E11.40 Type 2 diabetes mellitus with diabetic neuropathy, unspecified; E78.00 Pure hypercholesterolemia, unspecified; K21.9 Gastro-esophageal reflux disease without esophagitis; I10 Essential (primary) hypertension; L40.0 Psoriasis vulgaris; Z20.828 Contact with and (suspected) exposure to other viral communicable diseases; Z87.891 Personal history of nicotine dependence; Z87.11 Personal history of peptic ulcer disease; Z87.19 Personal history of other diseases of the digestive system; Z79.84 Long term (current) use of oral hypoglycemic drugs
CPT/HCPCS: 36415; 71046; 80048; 80053; 82962; 83735; 83880; 84145; 85025; 86769; 87635

== ENCOUNTER 2020-04-13 09:42 | Outpatient (RCR) | payer MEDICARE ==
[2020-01-22 14:21] LABS: BASOPHILS % (AUTO) 1 % (0-10); EOSINOPHILS # (AUTO) 0.3 10^3/uL (0.0-0.3); EOSINOPHILS % (AUTO) 8 % (0-10); HEMATOCRIT 40 % (40-54); HEMOGLOBIN 12.9 G/DL (13.3-17.7); LYMPHOCYTES # (AUTO) 0.8 X 10^3 (1.0-4.0); LYMPHOCYTES % (AUTO) 20 % (12-44); MEAN CORPUSCULAR HEMOGLOBIN 29 PG (25-34); MEAN CORPUSCULAR HGB CONC 32 G/DL (32-36); MEAN CORPUSCULAR VOLUME 90 FL (80-99); MEAN PLATELET VOLUME 10.6 FL (7.4-10.4); MONOCYTES # (AUTO) 0.7 X 10^3 (0.0-1.0); MONOCYTES % (AUTO) 18 % (0-12); NEUTROPHILS % (AUTO) 53 % (42-75); PLATELET COUNT 71 10^3/uL (130-400); WHITE BLOOD COUNT 3.8 10^3/uL (4.3-11.0)
[2020-01-22 14:51] LABS: ALBUMIN 3.2 GM/DL (3.2-4.5); BILIRUBIN,TOTAL 1.8 MG/DL (0.1-1.0); CALCIUM 9.8 MG/DL (8.5-10.1); CREATININE SERUM 1.4 MG/DL (0.60-1.30); POTASSIUM 3.9 MMOL/L (3.6-5.0); TOTAL PROTEIN 7.3 GM/DL (6.4-8.2)
[2020-01-22 21:20] LABS: HEPATITIS C ANTIBODY C Non-Reactive (Non-Reactive)
[2020-03-01 15:10] LABS: BASOPHILS % (AUTO) 1 % (0-10); EOSINOPHILS # (AUTO) 0.4 10^3/uL (0.0-0.3); EOSINOPHILS % (AUTO) 11 % (0-10); HEMATOCRIT 38 % (40-54); HEMOGLOBIN 12.3 G/DL (13.3-17.7); LYMPHOCYTES # (AUTO) 0.9 X 10^3 (1.0-4.0); LYMPHOCYTES % (AUTO) 23 % (12-44); MEAN CORPUSCULAR HGB CONC 33 G/DL (32-36); MEAN CORPUSCULAR VOLUME 90 FL (80-99); MEAN PLATELET VOLUME 10.2 FL (7.4-10.4); MONOCYTES # (AUTO) 0.7 X 10^3 (0.0-1.0); MONOCYTES % (AUTO) 20 % (0-12); NEUTROPHILS # (AUTO) 1.7 X 10^3 (1.8-7.8); NEUTROPHILS % (AUTO) 45 % (42-75); PLATELET COUNT 94 10^3/uL (130-400); WHITE BLOOD COUNT 3.7 10^3/uL (4.3-11.0)
[2020-03-01 15:12] LABS: MEAN CORPUSCULAR HEMOGLOBIN 29 PG (25-34)
[2020-03-01 15:37] LABS: ALANINE AMINOTRANSFERASE 18 U/L (0-55); ALKALINE PHOSPHATASE 104 U/L (40-136); BILIRUBIN,TOTAL 1.8 MG/DL (0.1-1.0); BUN/CREATININE RATIO 8; CALCIUM 9.5 MG/DL (8.5-10.1); CARBON DIOXIDE 33 MMOL/L (21-32); CHLORIDE 95 MMOL/L (98-107); CREATININE SERUM 1.14 MG/DL (0.60-1.30); GFR ESTIMATED > 60; GLUCOSE 63 MG/DL (70-105); POTASSIUM 3.7 MMOL/L (3.6-5.0); SODIUM 135 MMOL/L (135-145)
[2020-03-23 09:09] LABS: BASOPHILS % (AUTO) 1 % (0-10); EOSINOPHILS # (AUTO) 0.6 10^3/uL (0.0-0.3); EOSINOPHILS % (AUTO) 13 % (0-10); HEMATOCRIT 38 % (40-54); HEMOGLOBIN 12.6 G/DL (13.3-17.7); LYMPHOCYTES # (AUTO) 0.8 X 10^3 (1.0-4.0); LYMPHOCYTES % (AUTO) 17 % (12-44); MEAN CORPUSCULAR HEMOGLOBIN 30 PG (25-34); MEAN CORPUSCULAR HGB CONC 33 G/DL (32-36); MEAN CORPUSCULAR VOLUME 91 FL (80-99); MEAN PLATELET VOLUME 9.6 FL (7.4-10.4); MONOCYTES # (AUTO) 0.7 X 10^3 (0.0-1.0); MONOCYTES % (AUTO) 15 % (0-12); NEUTROPHILS # (AUTO) 2.6 X 10^3 (1.8-7.8); NEUTROPHILS % (AUTO) 55 % (42-75); PLATELET COUNT 117 10^3/uL (130-400); WHITE BLOOD COUNT 4.7 10^3/uL (4.3-11.0)
[2020-03-23 09:31] LABS: ALANINE AMINOTRANSFERASE 29 U/L (0-55); ALBUMIN 2.8 GM/DL (3.2-4.5); ALKALINE PHOSPHATASE 141 U/L (40-136); BUN/CREATININE RATIO 10; CALCIUM 9.1 MG/DL (8.5-10.1); CARBON DIOXIDE 34 MMOL/L (21-32); CHLORIDE 93 MMOL/L (98-107); GFR ESTIMATED > 60; GLUCOSE 176 MG/DL (70-105); POTASSIUM 3.6 MMOL/L (3.6-5.0); SODIUM 134 MMOL/L (135-145); TOTAL PROTEIN 6.9 GM/DL (6.4-8.2)
[2020-03-30 13:03] LABS: ALBUMIN 2.9 GM/DL (3.2-4.5); BILIRUBIN,TOTAL 2.4 MG/DL (0.1-1.0); CALCIUM 9.4 MG/DL (8.5-10.1); CREATININE SERUM 1.23 MG/DL (0.60-1.30); POTASSIUM 3.8 MMOL/L (3.6-5.0); TOTAL PROTEIN 7.3 GM/DL (6.4-8.2)
[~2020-04-13] VITALS: Ht 180.3 cm; Wt 86.6 kg
[~2020-04-13 09:42] MED LIST changes: +CEFD300C3 PO; +CENTER ONLY IV SCH; +IPILIMUMAB IV SCH; +NIVOLUMAB IV SCH; +NS IV 1000 ML (CANCER CTR) IV SCH; +NS IV SCH
[2020-04-13 09:59] LABS: LYMPHOCYTES % (AUTO) 14 % (12-44)
[2020-04-13 10:01] LABS: BASOPHILS # (AUTO) 0.1 10^3/uL (0.0-0.1); BASOPHILS % (AUTO) 1 % (0-10); EOSINOPHILS # (AUTO) 0.7 10^3/uL (0.0-0.3); EOSINOPHILS % (AUTO) 12 % (0-10); HEMATOCRIT 38 % (40-54); HEMOGLOBIN 12.6 g/dL (13.3-17.7); LYMPHOCYTES # (AUTO) 0.9 10^3/uL (1.0-4.0); MEAN CORPUSCULAR HEMOGLOBIN 31 pg (25-34); MEAN CORPUSCULAR HGB CONC 33 g/dL (32-36); MEAN CORPUSCULAR VOLUME 93 fL (80-99); MEAN PLATELET VOLUME 9.3 fL (9.0-12.2); MONOCYTES # (AUTO) 0.8 10^3/uL (0.0-1.0); MONOCYTES % (AUTO) 13 % (0-12); NEUTROPHILS # (AUTO) 3.7 10^3/uL (1.8-7.8); NEUTROPHILS % (AUTO) 60 % (42-75); PLATELET COUNT 131 10^3/uL (130-400); WHITE BLOOD COUNT 6.2 10^3/uL (4.3-11.0)
[2020-04-13 10:24] LABS: ALANINE AMINOTRANSFERASE 15 U/L (0-55); ALBUMIN 2.7 GM/DL (3.2-4.5); ALKALINE PHOSPHATASE 83 U/L (40-136); BUN/CREATININE RATIO 9; CALCIUM 9.1 MG/DL (8.5-10.1); CARBON DIOXIDE 30 MMOL/L (21-32); CHLORIDE 93 MMOL/L (98-107); CREATININE SERUM 1.08 MG/DL (0.60-1.30); GFR ESTIMATED > 60; GLUCOSE 161 MG/DL (70-105); POTASSIUM 3.8 MMOL/L (3.6-5.0); SODIUM 133 MMOL/L (135-145)
== END 2020-04-21 | disposition home or self-care (01) ==
LOC: ONC 09:42
PROVIDERS: ATTEND Internal Medicine Hematology & Oncology
DX: K74.60 Unspecified cirrhosis of liver (principal); K76.89 Other specified diseases of liver; I10 Essential (primary) hypertension; I85.01 Esophageal varices with bleeding; R77.2 Abnormality of alphafetoprotein; R16.1 Splenomegaly, not elsewhere classified; R18.8 Other ascites
CPT/HCPCS: 36415; 36591; 80053; 80074; 82105; 82728; 83540; 84443; 85025; 96413; 96417; 99213

== ENCOUNTER 2020-04-19 05:38 | Outpatient (CLI) | payer MEDICARE ==
[~2020-04-19] VITALS: Ht 177.8 cm; Wt 81.8 kg
[~2020-04-19 05:38] MED LIST changes: -CENTER ONLY IV SCH; -IPILIMUMAB IV SCH; -NIVOLUMAB IV SCH; -NS IV 1000 ML (CANCER CTR) IV SCH; -NS IV SCH
== END 2020-04-19 14:27 ==
LOC: PREOP 05:38
PROVIDERS: ATTEND Surgery
DX: Z01.818 Encounter for other preprocedural examination (principal); Z01.812 Encounter for preprocedural laboratory examination; C22.9 Malignant neoplasm of liver, not specified as primary or secondary; Z20.828 Contact with and (suspected) exposure to other viral communicable diseases
CPT/HCPCS: 87635

== ENCOUNTER 2020-04-20 10:17 | Outpatient (CLI) | payer MEDICARE ==
[~2020-04-20] VITALS: Ht 172 cm; Wt 63000.0 kg
[2020-04-20 10:50] VITALS: BP 110/73
[2020-04-20 11:56] VITALS: BP 103/70
[2020-04-20] MEDS ORDERED: ALBUMIN 25% 25 GM/100 ML 100 ML IV ONE ×2 (12:15→12:45)
[2020-04-20 12:37] VITALS: BP 103/70
[2020-04-20 15:11] VITALS: BP 103/70
--- NOTE | 2020-04-20 15:36 | Progress Note-Post Operative ---
Post-Operative Progess Note Surgeon (s)/Warehouse Lead (s) Surgeon THIERRY JOHANSEN DO Warehouse Lead: none Pre-Operative Diagnosis liver cancer, ascites Post-Operative Diagnosis same Procedure & Operative Findings Date of Procedure 04/20/20 Procedure Performed/Findings INDICATION FOR PROCEDURE: The patient is a 74-year-old male, who had increasing abdominal girth a history of ascites and needs to get this removed. FINDINGS: The patient had yellowish ascitic fluid removed. PROCEDURE NOTE: After informed consent was obtained, the patient was in the Radiology procedure room, timeout was performed and then the patient was sterilely prepped and draped in normal fashion. He had already been previously marked by the ultrasound and then ultrasound watched as I first infiltrated the skin with local and then made a small stab incision with #11 blade and then advanced the safe needle at the spot with ultrasound and marked gently into the abdomen, able to push through and then got a good flash of ascitic fluid and then pushed the catheter and pulled the needle out catheter, went in easily and then hooked this up to vacutainer and got out yellowish ascitic fluid. No bleeding at all, drained approximately 5700ml of ascitic fluid. The patient tolerated the procedure. The catheter was removed and an area was cleaned and dried and bandaged. He then received 25 mg of alb umin tolerated the procedure. Sponge, instrument and needle count correct at the end of the case. Anesthesia Type local lidocaine Estimated Blood Loss Estimated blood loss (mL): scant Specimens/Packing Specimens Removed 5700ml ascitic fluid THIERRY JOHANSEN DO Apr 20, 2020 15:36
== END 2020-04-20 15:10 | disposition home or self-care (01) ==
LOC: SDC 10:17 → EDSTATUS 11:55 → SDC 15:10
PROVIDERS: ATTEND Surgery
DX: C22.9 Malignant neoplasm of liver, not specified as primary or secondary (principal)
CPT/HCPCS: 49082; 96365; 96366

== ENCOUNTER 2020-05-03 13:36 | Emergency (ER) | payer MEDICARE ==
[~2020-05-03] VITALS: Ht 185.4 cm; Wt 88.4 kg
[2020-05-03] MEDS ORDERED: NS IV 500 ML 500 ML IV ONE (14:12)
--- NOTE | 2020-05-03 14:12 | ED Respiratory ---
General Chief Complaint: Respiratory Problems Stated Complaint: WEAKNESS,COUGH Nursing Triage Note: Pt reports testing negative for COVID twice. Pt c/o productive cough with green sputum. Pt denies fever or SOB. Pt reports is COVID +. History of Present Illness Date Seen by Provider: May 03, 2020 Time Seen by Provider: 13:40 Initial Comments 74-year-old male presents for cough and weakness. He has hepatocellular carcinoma and is treated by Dr. Wheeler. His is COVID positive and is on her last day of isolation. He has been tested in the past month and it was negative. He has not had a recent test since his has been positive. Concerned because he was checked at home for her SaO2 on room air and was 90-93%. Several members of his islam are positive for COVID. Timing/Duration: yesterday, getting worse Severity: mild Prior Episodes/Possible Cause: occasional episodes Associated Symptoms: No chest pain/soreness; cough (productive); No fever/chills; muscle aches, shortness of breath Allergies and Home Medications Allergies Coded Allergies: Penicillins (Verified Allergy, Unknown, Pt rec Cefepime & Rocephin in the past, 04/01/20) Tetanus Vaccines and Toxoid (Verified Allergy, Unknown, 03/09/20) codeine (Verified Allergy, Unknown, 03/09/20) Home Medications Albuterol Sulfate 1 Puff Puff, 2 PUFF IH Q4H PRN for SHORTNESS OF BREATH 1 PUFF = 90 MCG Prescribed by: DAVID BISHOP on 05/03/20 1455 Bumetanide 1 Mg Tablet, 1 MG PO DAILY, (Reported) Dexamethasone 6 Mg Tablet, 6 MG PO DAILY Prescribed by: DAVID BISHOP on 05/03/20 1455 Eplerenone 50 Mg Tablet, 50 MG PO DAILY, (Reported) Glipizide 10 Mg Tablet, 10 MG PO DAILY, (Reported) Lactulose 10 Gm/15 Ml Solution, 30 ML PO BID PRN for CONSTIPATION-3RD LINE, (Reported) Omeprazole 20 Mg Capsule.dr, 20 MG PO DAILY, (Reported) Oxycodone HCl/Acetaminophen 1 Each Tablet, 1 EA PO Q6H PRN for PAIN-MODERATE, (Reported) Propranolol HCl 60 Mg Cap.sa.24h, 60 MG PO DAILY, (Reported) Patient Home Medication List Home Medication List Reviewed: Yes Review of Systems Review of Systems Constitutional: see HPI, malaise, weakness Respiratory: see HPI, cough, phlegm, short of breath (patient reports no worse than usual.) Cardiovascular: no symptoms reported, see HPI; No chest pain Gastrointestinal: no symptoms reported, see HPI; No constipation, No diarrhea, No nausea, No vomiting Genitourinary: no symptoms reported, see HPI Musculoskeletal: no symptoms reported, see HPI Skin: no symptoms reported, see HPI All Other Systems Reviewed Negative Unless Noted: Yes Past Sjtcooe-Nzucip-Muocdi Hx Past Med/Social Hx: Reviewed Nursing Past Med/Soc Hx Patient Social History Alcohol Use: Denies Use Recreational Drug Use: No Former Smoker, Quit: Jun 18, 1998 2nd Hand Smoke Exposure: No Recent Foreign Travel: No Contact w/Someone Who Travel: No Recent Infectious Disease Expo: No Recent Hopitalizations: No (DECEMBER 2019-ASCITES/FEVER) Immunizations Up To Date Tetanus Booster (TDap): Unknown Date of Pneumonia Vaccine: Mar 15, 2020 Date of Influenza Vaccine: Apr 15, 2020 Seasonal Allergies Seasonal Allergies: No Past Medical History Surgeries: Yes (RIGHT KNEE SCOPE X3, CERVICAL SPINE FUSION 07/27/15 Dr Griffiths) Respiratory: No Currently Using CPAP: No Currently Using BIPAP: No Cardiac: Yes High Cholesterol, Hypertension Neurological: Yes Neuropathy Reproductive Disorders: No Sexually Transmitted Disease: No HIV/AIDS: No Genitourinary: No Gastrointestinal: Yes (liver ca) Gastroesophageal Reflux, Ulcer, Cirrhosis Musculoskeletal: Yes (neck) Degenerate Disk Disease Endocrine: Yes Diabetes, Insulin dep HEENT: No Cancer: Yes Liver Psychosocial: No Integumentary: Yes Psoriasis Blood Disorders: No Adverse Reaction/Blood Tranf: No (N/A) Family Medical History Arthritis 19 MOTHER, Onset:Unknown Cataracts 19 MOTHER, Onset:Unknown Diabetes mellitus MATERNAL GRANDMOTHER, Onset:Unknown FH: blindness MATERNAL GRANDMOTHER, Onset:Unknown (BLINDNESS DUE TO DIABETES) FH: lung cancer 19 MOTHER, Onset:Unknown FH: stroke MATERNAL GRANDMOTHER, Onset:Unknown Cancer, Diabetes Physical Exam Vital Signs - First Documented 05/03/20 13:40 Temp 36.9 Pulse 68 Resp 20 B/P (MAP) 121/74 (90) Pulse Ox 94 O2 Delivery Room Air Capillary Refill : Less Than 3 Seconds Height: 5'11.00" Weight: 190lbs. 2.0oz. 86.851104ho; 25.00 BMI Method: General Appearance: WD/WN, no apparent distress Eyes: Bilateral Eye Normal Inspection, Bilateral Eye PERRL, Bilateral Eye EOMI HEENT: PERRL/EOMI, normal ENT inspection, TMs normal, pharynx normal Neck: non-tender, full range of motion, supple, normal inspection Respiratory: chest non-tender, lungs clear, normal breath sounds, no respiratory distress Cardiovascular: normal peripheral pulses, regular rate, rhythm, no edema Gastrointestinal: normal bowel sounds, non tender, soft; No rebound, No tenderness Extremities: normal range of motion, non-tender, normal inspection, no pedal edema, normal capillary refill Neurologic/Psychiatric: no motor/sensory deficits, alert, normal mood/affect, oriented x 3 Skin: normal color, warm/dry Progress/Results/Core Measures Suspected Sepsis Recent Fever Within 48 Hours: No Infection Criteria Present: None New/Unexplained Altered Menta: No Sepsis Screen: No Definite Risk SIRS Temperature: Pulse: 68 Respiratory Rate: 20 Laboratory Tests 05/03/20 13:59: White Blood Count 5.2 Blood Pressure 121 /74 Mean: 90 Laboratory Tests 05/03/20 13:59: Creatinine 0.90, INR Comment 1.5H, Platelet Count 103L, Total Bilirubin 2.0H Results/Orders Lab Results Laboratory Tests Test 05/03/20 13:59 Range/Units White Blood Count 5.2 4.3-11.0 10^3/uL Red Blood Count 4.14 L 4.30-5.52 10^6/uL Hemoglobin 12.7 L 13.3-17.7 g/dL Hematocrit 38 L 40-54 % Mean Corpuscular Volume 93 80-99 fL Mean Corpuscular Hemoglobin 31 25-34 pg Mean Corpuscular Hemoglobin Concent 33 32-36 g/dL Red Cell Distribution Width 16.8 H 10.0-14.5 % Platelet Count 103 L 130-400 10^3/uL Mean Platelet Volume 9.1 9.0-12.2 fL Immature Granulocyte % (Auto) 0 % Neutrophils (%) (Auto) 61 42-75 % Lymphocytes (%) (Auto) 19 12-44 % Monocytes (%) (Auto) 14 H 0-12 % Eosinophils (%) (Auto) 6 0-10 % Basophils (%) (Auto) 1 0-10 % Neutrophils # (Auto) 3.2 1.8-7.8 10^3/uL Lymphocytes # (Auto) 1.0 1.0-4.0 10^3/uL Monocytes # (Auto) 0.7 0.0-1.0 10^3/uL Eosinophils # (Auto) 0.3 0.0-0.3 10^3/uL Basophils # (Auto) 0.0 0.0-0.1 10^3/uL Immature Granulocyte # (Auto) 0.0 0.0-0.1 10^3/uL Erythrocyte Sedimentation Rate 18 0-30 MM/HR Prothrombin Time 18.0 H 12.2-14.7 SEC INR Comment 1.5 H 0.8-1.4 Activated Partial Thromboplast Time 41 H 24-35 SEC D-Dimer 6.35 H 0.00-0.49 UG/ML Sodium Level 133 L 135-145 MMOL/L Potassium Level 3.0 L 3.6-5.0 MMOL/L Chloride Level 90 L 98-107 MMOL/L Carbon Dioxide Level 31 21-32 MMOL/L Anion Gap 12 5-14 MMOL/L Blood Urea Nitrogen 12 7-18 MG/DL Creatinine 0.90 0.60-1.30 MG/DL Estimat Glomerular Filtration Rate > 60 BUN/Creatinine Ratio 13 Glucose Level 158 H 70-105 MG/DL Calcium Level 8.6 8.5-10.1 MG/DL Corrected Calcium 9.7 8.5-10.1 MG/DL Total Bilirubin 2.0 H 0.1-1.0 MG/DL Aspartate Amino Transf (AST/SGOT) 29 5-34 U/L Alanine Aminotransferase (ALT/SGPT) 14 0-55 U/L Alkaline Phosphatase 59 40-136 U/L Lactate Dehydrogenase 159 125-220 U/L C-Reactive Protein High Sensitivity 3.04 H 0.00-0.50 MG/DL Total Protein 6.7 6.4-8.2 GM/DL Albumin 2.6 L 3.2-4.5 GM/DL Procalcitonin 0.05 <0.10 NG/ML Coronavirus 2019 ([facility]) Positive H Negative Micro Results Microbiology 05/03/20 Influenza Types A,B Antigen (CHRISTINA) - Final, Complete My Orders Orders - DAVID BISHOP Cbc With Automated Diff (05/03/20 13:39) Comprehensive Metabolic Panel (05/03/20 13:39) Fibrin Degradation Products (05/03/20 13:39) Procalcitonin (Pct) (05/03/20 13:39) Hs C Reactive Protein (05/03/20 13:39) Erythrocyte Sedimentation Rate (05/03/20 13:39) LDH (05/03/20 13:39) Influenza A And B Antigens (05/03/20 13:39) Chest 1 View, Ap/Pa Only (05/03/20 13:39) Sputum Culture (05/03/20 14:02) Covid 19 Inhouse Test (05/03/20 14:02) Ed Iv/Invasive Line Start (05/03/20 14:12) Ns Iv 500 Ml (Sodium Chloride 0.9%) (05/03/20 14:12) Protime With Inr (05/03/20 14:19) Partial Thromboplastin Time (05/03/20 14:19) Potassium Chloride (Tablet) (Klor Con Ta (05/03/20 14:42) Medications Given in ED Current Medications Medications Dose Ordered Sig/Maru Route Start Time Stop Time Status Last Admin Dose Admin Sodium Chloride 500 ml @ 0 mls/hr Q0M ONCE IV 05/03/20 14:12 05/03/20 14:13 DC 05/03/20 14:16 500 MLS/HR Vital Signs/I&O 05/03/20 13:40 Temp 36.9 Pulse 68 Resp 20 B/P (MAP) 121/74 (90) Pulse Ox 94 O2 Delivery Room Air Capillary Refill : Less Than 3 Seconds Blood Pressure Mean: 90 Progress Note : Time: 13:40 Progress Note Patient seen and evaluated, vital signs stable, normotensive, pulse 60-80. SaO2 on room air 93-95%. Will obtain labs, rapid COVID swab, chest x-ray and reevaluation. Patient reports he has been eating and drinking. No signs of dehydration, will give 500 ml of NS. 1415 COVID +, patient told. Still no SOA, SaO2 95% on Room Air. called and notified. Awaiting labs and Chest x-ray. No requests at this time. 1455 chest x-ray shows no acute findings, labs are all stable, potassium 3.0, will give oral potassium. He has remained normotensive with a heart rate in the 70s. He has required no supplemental oxygen. SaO2 on room air has remained 94- 96%. Discharge instructions explained to the patient and . They will be notified by the [facility] further quarantine/isolation requirements. All questions answered. Diagnostic Imaging Diagonstic Imaging: Xray Plain Films/CT/US/NM/MRI: chest Comments NAME: TJ RAMIREZ [facility] REC#: [id number] PT STATUS: REG ER : 1945 PHYSICIAN: DAVID BISHOP ADMIT DATE: 05/03/20/ER Draft Date of Exam:05/03/20 CHEST 1 VIEW, AP/PA ONLY INDICATION: Cough and shortness of breath. TECHNIQUE/COMPARISON: A frontal chest was obtained at 2:41 PM and compared to 03/30/2020. FINDINGS: The heart and mediastinal silhouette are normal in appearance. The lungs are clear. There is no pneumothorax or pleural fluid. There is an anatomic variant of an azygos lobe in the right upper lobe. The left-sided Port-A-Cath is unchanged. IMPRESSION: No acute pulmonary infiltrate or pleural fluid. No new abnormality in the chest. Dictated on workstation # [id number] Dict: 05/03/20 1456 Trans: 05/03/20 1500 [id number] Interpreted by: JINA ARANDA MD Electronically signed by: Departure Impression Primary Impression: COVID-19 Additional Impressions: Cough HCC (hepatocellular carcinoma) Disposition: 01 HOME, SELF-CARE Condition: Stable Departure-Patient Inst. Decision time for Depature: 14:50 Referrals: OSCAR MARTINEZ MD (PCP/Family) Primary Care Physician Patient Instructions: Coronavirus Disease 2019 (COVID-19) (DC), Cough, Adult (DC) Add. Discharge Instructions: Rest, walk in house, usually incentive spirometer every 2 hours while awake. Sleep on stomach Stay home and household members/close contacts need to stay home, until [facility] tells you it is ok to leave. Call Dr. Martinez, if symptoms worsen. Notify anyone, if you leave your home, that you are COVID +, call ahead for anywhere you must go for medical reasons. Alternate between Tylenol 650 mg and ibuprofen 600 mg every 4 hours for fever or pain. Use the inhaler 2-4 puffs every 4 hours for shortness breath. Take the Decadron as prescribed. Continue all home medications. Return to the emergency department for new, urgent health care needs. All discharge instructions reviewed with patient and/or family. Voiced understanding. Scripts Albuterol Sulfate (PROAIR HFA) 1 Puff Puff 2 PUFF IH Q4H PRN for SHORTNESS OF BREATH, #1 INHALER 1 Refill 1 PUFF = 90 MCG Prov: DAVID BISHOP 05/03/20 Dexamethasone (Decadron) 6 Mg Tablet 6 MG PO DAILY, #6 TAB 0 Refills Prov: DAVID BISHOP 05/03/20 Copy Copies To 1: OSCAR MARTINEZ MD Copies To 2: SHERI SCHREIBER AMY ARNP May 03, 2020 14:12
[2020-05-03 14:20] LABS: BASOPHILS % (AUTO) 1 % (0-10); EOSINOPHILS # (AUTO) 0.3 10^3/uL (0.0-0.3); EOSINOPHILS % (AUTO) 6 % (0-10); HEMATOCRIT 38 % (40-54); HEMOGLOBIN 12.7 g/dL (13.3-17.7); LYMPHOCYTES % (AUTO) 19 % (12-44); MEAN CORPUSCULAR HEMOGLOBIN 31 pg (25-34); MEAN CORPUSCULAR HGB CONC 33 g/dL (32-36); MEAN CORPUSCULAR VOLUME 93 fL (80-99); MEAN PLATELET VOLUME 9.1 fL (9.0-12.2); MONOCYTES # (AUTO) 0.7 10^3/uL (0.0-1.0); MONOCYTES % (AUTO) 14 % (0-12); NEUTROPHILS # (AUTO) 3.2 10^3/uL (1.8-7.8); NEUTROPHILS % (AUTO) 61 % (42-75); PLATELET COUNT 103 10^3/uL (130-400); WHITE BLOOD COUNT 5.2 10^3/uL (4.3-11.0)
[2020-05-03 14:32] LABS: ALBUMIN 2.6 GM/DL (3.2-4.5); CHLORIDE 90 MMOL/L (98-107); SODIUM 133 MMOL/L (135-145)
[2020-05-03 14:33] LABS: CALCIUM 8.6 MG/DL (8.5-10.1)
[2020-05-03 14:34] LABS: GLUCOSE 158 MG/DL (70-105)
[2020-05-03 14:35] LABS: TOTAL PROTEIN 6.7 GM/DL (6.4-8.2)
[2020-05-03 14:36] LABS: CARBON DIOXIDE 31 MMOL/L (21-32)
[2020-05-03 14:38] LABS: ALKALINE PHOSPHATASE 59 U/L (40-136); GFR ESTIMATED > 60
[2020-05-03 14:39] LABS: BUN/CREATININE RATIO 13
[2020-05-03 14:41] LABS: ALANINE AMINOTRANSFERASE 14 U/L (0-55)
[2020-05-03] MEDS ORDERED: KCL 10 MEQ TAB (MICRO K) PO STA (14:42)
[2020-05-03 14:44] LABS: INR 1.5 (0.8-1.4)
[2020-05-03] MEDS ORDERED: DEXA6TAB6 PO (14:55)
[2020-05-03] MEDS ORDERED: RT-ALBUINH IH (14:55)
--- NOTE | 2020-05-03 15:00 | Diagnostic Imaging Report ---
INDICATION: Cough and shortness of breath. TECHNIQUE/COMPARISON: A frontal chest was obtained at 2:41 PM and compared to 03/30/2020. FINDINGS: The heart and mediastinal silhouette are normal in appearance. The lungs are clear. There is no pneumothorax or pleural fluid. There is an anatomic variant of an azygos lobe in the right upper lobe. The left-sided Port-A-Cath is unchanged. IMPRESSION: No acute pulmonary infiltrate or pleural fluid. No new abnormality in the chest. Dictated by: Dictated on workstation # [id number]
[2020-05-03 15:01] LABS: ERYTHROCYTE SEDIMENTATION RATE 18 MM/HR (0-30)
[2020-05-03 15:15] VITALS: BP 109/70
== END 2020-05-03 15:18 | disposition home or self-care (01) ==
LOC: EDUNIT# 13:36 → ER 13:39
DX: U07.1 COVID-19 (principal); C22.0 Liver cell carcinoma; K21.9 Gastro-esophageal reflux disease without esophagitis; I10 Essential (primary) hypertension; E11.9 Type 2 diabetes mellitus without complications; Z82.61 Family history of arthritis; Z83.3 Family history of diabetes mellitus; Z80.1 Family history of malignant neoplasm of trachea, bronchus and lung; Z85.05 Personal history of malignant neoplasm of liver; Z87.891 Personal history of nicotine dependence; Z88.0 Allergy status to penicillin; Z88.5 Allergy status to narcotic agent; Z88.7 Allergy status to serum and vaccine
CPT/HCPCS: 36415; 71045; 80053; 83615; 84145; 85025; 85379; 85610; 85652; 85730; 86141; 87070; 87077; 87205; 87635; 87804

== ENCOUNTER 2020-06-01 11:37 | Outpatient (CLI) | payer MEDICARE ==
[~2020-06-01] VITALS: Ht 185.4 cm; Wt 88.4 kg
[~2020-06-01 11:37] MED LIST changes: +DEXA6TAB6 PO; +RT-ALBUINH IH
[2020-06-01 11:45] VITALS: BP 118/74
[2020-06-01] MEDS ORDERED: ALBUMIN 25% 25 GM/100 ML 100 ML IV ONE (14:00)
--- NOTE | 2020-06-01 14:14 | Progress Note-Pre Operative ---
Pre-Operative Progress Note H&P Reviewed The H&P was reviewed, patient examined and no changes noted. Time Seen by Provider: 11:31 Date H&P Reviewed: Jun 01, 2020 Time H&P Reviewed: 11:32 Pre-Operative Diagnosis: Ascites, Hepatocellular CA THIERRY JOHANSEN DO Jun 01, 2020 14:14
--- NOTE | 2020-06-01 14:17 | Progress Note-Post Operative ---
Post-Operative Progess Note Surgeon (s)/Forensic Document Examiner (s) Surgeon THIERRY JOHANSEN DO Forensic Document Examiner: none Pre-Operative Diagnosis Ascites, Hepatocellular CA Post-Operative Diagnosis same Procedure & Operative Findings Date of Procedure 06/01/20 Procedure Performed/Findings INDICATION FOR PROCEDURE: The patient is a 74-year-old male, who had increasing abdominal girth a history of ascites and needs to get this removed. FINDINGS: The patient had yellowish ascitic fluid removed. PROCEDURE NOTE: After informed consent was obtained, the patient was in the Same day surgery room, timeout was performed and then the patient was sterilely prepped and draped in normal fashion. He had already been previously marked by the ultrasound and then ultrasound watched as I first infiltrated the skin with local and then made a small stab incision with #11 blade and then advanced the safe-T needle at the spot that ultrasound had marked; gently into the abdomen, able to push through and then got a good flash of ascitic fluid and then pushed the catheter in and pulled the needle out. Catheter went in easily and then hooked this up to vacutainer and got out yellowish ascitic fluid. No bleeding at all, drained approximately 8000ml of ascitic fluid. The patient tolerated the procedure. The catheter was removed and an area was cleaned and dried and bandaged. He then received 25 mg of albumin tolerated the procedure. Sponge, instrument and needle count correct at the end of the case. Anesthesia Type local lidocaine Estimated Blood Loss Estimated blood loss (mL): scant Specimens/Packing Specimens Removed Ascitic fluid THIERRY JOHANSEN DO Jun 01, 2020 14:17
[2020-06-01] MEDS ORDERED: HEParin (CENTRAL IV FLUSH) 500 UNIT/5 ML SYR IV ONE (14:45)
[2020-06-01 14:50] VITALS: BP 88/45
--- NOTE | 2020-06-01 15:04 | Discharge Inst-Surgical ---
Discharge Inst-Surgical Depart Medication/Instructions New, Converted or Re-Newed RX: Other (no pain meds needed) Patient Instructions Follow up Appt: Make appointment for 1 week. [phone] Instructions: No lifting greater than 20 pounds. No strenuous activity. May shower in 24 hours, no tub bath or soaking. Use incentive spirometer at home as directed. No Smoking Skin/Wound Care: May remove bandages in am. You need to leave the Dermabond on incision it will fall off on it's own. Symptoms to Report: Appetite Changes, Extremity Discoloration, Numbness/Tingling, Swelling Increased, Bleeding Excessive, Eyesight Changes, Pain Increased, Urine Color Change, Constipation(Persistent), Fever over 101 degree F, Pain/Pressure in chest, Urinating Difficulty, Cough Up/Vomit Blood, Heart Beat Irreg/Pounding, Pain/Pressure in jaw, Cramps in feet or legs, Lightheadedness, Pain/Pressure in shoulder, Diarrhea(Persistent), Memory Changes Suddenly, Questions/Concerns, Weight gain consecutive days, Dizziness/Fainting, Nausea/Vomiting, Shortness of Breath, Weight gain over 2 pounds If questions or concerns contact your physician Or seek help at emergency department. Activity Activity as Tolerated: Yes Activity Instructions: Avoid Stress to Incision Driving Instructions: You May Drive Diet Discharge Diet: No Restrictions If Any Problems/Questions/Issu: Contact Your Physician, Go to Emergency Room Skin/Wound Care Infection Signs and Symptoms: Increased Redness, Foul Odor of Wound, Increased Drainage, Skin Itchy or Has a Rash, Increased Swelling, Temperature Above 101 F Bathing Instructions: Shower Stitches/Nohemi/Dermabond Dis: THIERRY Morris DO Jun 01, 2020 15:04
[2020-06-01 16:37] VITALS: BP 95/61
== END 2020-06-01 16:37 | disposition home or self-care (01) ==
LOC: SDC 11:37
PROVIDERS: ATTEND Surgery
DX: K74.60 Unspecified cirrhosis of liver (principal)
CPT/HCPCS: 49082; 96365; 96366

== ENCOUNTER 2020-06-29 12:35 | Outpatient (RCR) | payer MEDICARE ==
[2020-05-18 14:12] LABS: HEMATOCRIT 37 % (40-54); HEMOGLOBIN 12.3 g/dL (13.3-17.7); MEAN CORPUSCULAR HEMOGLOBIN 31 pg (25-34); MEAN CORPUSCULAR HGB CONC 34 g/dL (32-36); MEAN CORPUSCULAR VOLUME 93 fL (80-99); NEUTROPHILS # (AUTO) 3.2 10^3/uL (1.8-7.8)
[2020-05-18 14:14] LABS: BASOPHILS % (AUTO) 0 % (0-10); EOSINOPHILS # (AUTO) 0.2 10^3/uL (0.0-0.3); EOSINOPHILS % (AUTO) 4 % (0-10); LYMPHOCYTES # (AUTO) 0.7 10^3/uL (1.0-4.0); LYMPHOCYTES % (AUTO) 13 % (12-44); MEAN PLATELET VOLUME 9.3 fL (9.0-12.2); MONOCYTES # (AUTO) 1.2 10^3/uL (0.0-1.0); MONOCYTES % (AUTO) 22 % (0-12); NEUTROPHILS % (AUTO) 60 % (42-75); PLATELET COUNT 81 10^3/uL (130-400); WHITE BLOOD COUNT 5.3 10^3/uL (4.3-11.0)
[2020-05-18 14:32] LABS: ALANINE AMINOTRANSFERASE 24 U/L (0-55); ALBUMIN 2.7 GM/DL (3.2-4.5); ALKALINE PHOSPHATASE 85 U/L (40-136); BILIRUBIN,TOTAL 2.8 MG/DL (0.1-1.0); BUN/CREATININE RATIO 15; CALCIUM 9.1 MG/DL (8.5-10.1); CARBON DIOXIDE 35 MMOL/L (21-32); CHLORIDE 85 MMOL/L (98-107); CREATININE SERUM 0.88 MG/DL (0.60-1.30); GFR ESTIMATED > 60; GLUCOSE 66 MG/DL (70-105); POTASSIUM 3.2 MMOL/L (3.6-5.0); SODIUM 130 MMOL/L (135-145); TOTAL PROTEIN 6.6 GM/DL (6.4-8.2)
[2020-05-18 15:14] LABS: MAGNESIUM 1.6 MG/DL (1.6-2.4)
[2020-06-01 09:13] LABS: HEMOGLOBIN 12.2 g/dL (13.3-17.7)
[2020-06-01 09:15] LABS: BASOPHILS % (AUTO) 1 % (0-10); EOSINOPHILS # (AUTO) 0.2 10^3/uL (0.0-0.3); EOSINOPHILS % (AUTO) 5 % (0-10); HEMATOCRIT 36 % (40-54); LYMPHOCYTES # (AUTO) 0.8 10^3/uL (1.0-4.0); LYMPHOCYTES % (AUTO) 16 % (12-44); MEAN CORPUSCULAR HEMOGLOBIN 32 pg (25-34); MEAN CORPUSCULAR HGB CONC 34 g/dL (32-36); MEAN CORPUSCULAR VOLUME 93 fL (80-99); MEAN PLATELET VOLUME 8.7 fL (9.0-12.2); MONOCYTES # (AUTO) 1.2 10^3/uL (0.0-1.0); MONOCYTES % (AUTO) 24 % (0-12); NEUTROPHILS # (AUTO) 2.7 10^3/uL (1.8-7.8); NEUTROPHILS % (AUTO) 54 % (42-75); PLATELET COUNT 132 10^3/uL (130-400)
[2020-06-01 09:33] LABS: ALANINE AMINOTRANSFERASE 15 U/L (0-55); ALBUMIN 2.6 GM/DL (3.2-4.5); ALKALINE PHOSPHATASE 95 U/L (40-136); BILIRUBIN,TOTAL 2.4 MG/DL (0.1-1.0); BUN/CREATININE RATIO 13; CALCIUM 8.9 MG/DL (8.5-10.1); CARBON DIOXIDE 33 MMOL/L (21-32); CHLORIDE 85 MMOL/L (98-107); CREATININE SERUM 0.94 MG/DL (0.60-1.30); GFR ESTIMATED > 60; GLUCOSE 92 MG/DL (70-105); SODIUM 131 MMOL/L (135-145); TOTAL PROTEIN 6.7 GM/DL (6.4-8.2)
[2020-06-01 15:19] LABS: MAGNESIUM 1.7 MG/DL (1.6-2.4)
[2020-06-22 14:06] LABS: HEMOGLOBIN 12.1 g/dL (13.3-17.7)
[2020-06-22 14:08] LABS: BASOPHILS % (AUTO) 0 % (0-10); EOSINOPHILS # (AUTO) 0.4 10^3/uL (0.0-0.3); EOSINOPHILS % (AUTO) 4 % (0-10); HEMATOCRIT 36 % (40-54); LYMPHOCYTES # (AUTO) 1.4 10^3/uL (1.0-4.0); LYMPHOCYTES % (AUTO) 15 % (12-44); MEAN CORPUSCULAR HEMOGLOBIN 32 pg (25-34); MEAN CORPUSCULAR HGB CONC 34 g/dL (32-36); MEAN CORPUSCULAR VOLUME 96 fL (80-99); MEAN PLATELET VOLUME 8.8 fL (9.0-12.2); MONOCYTES # (AUTO) 1.6 10^3/uL (0.0-1.0); MONOCYTES % (AUTO) 17 % (0-12); NEUTROPHILS % (AUTO) 64 % (42-75); PLATELET COUNT 150 10^3/uL (130-400); WHITE BLOOD COUNT 9.3 10^3/uL (4.3-11.0)
[2020-06-22 14:27] LABS: ALANINE AMINOTRANSFERASE 14 U/L (0-55); ALBUMIN 2.4 GM/DL (3.2-4.5); ALKALINE PHOSPHATASE 65 U/L (40-136); BILIRUBIN,TOTAL 1.9 MG/DL (0.1-1.0); BUN/CREATININE RATIO 15; CARBON DIOXIDE 36 MMOL/L (21-32); CHLORIDE 86 MMOL/L (98-107); CREATININE SERUM 1.03 MG/DL (0.60-1.30); GFR ESTIMATED > 60; POTASSIUM 3.3 MMOL/L (3.6-5.0); SODIUM 129 MMOL/L (135-145); TOTAL PROTEIN 6.5 GM/DL (6.4-8.2)
[2020-06-22 14:34] LABS: GLUCOSE 47 MG/DL (70-105)
[~2020-06-29 12:35] MED LIST changes: +CENTER ONLY IV SCH; +IPILIMUMAB IV SCH; +NIVOLUMAB 240 MG in NS (IVPB) CANCER CENTER 100 ML IV SCH; +NIVOLUMAB IV SCH; +NS IV 1000 ML (CANCER CTR) IV SCH; +NS IV SCH
[2020-06-29 12:57] LABS: BASOPHILS % (AUTO) 0 % (0-10); EOSINOPHILS # (AUTO) 0.3 10^3/uL (0.0-0.3); NEUTROPHILS # (AUTO) 5.2 10^3/uL (1.8-7.8)
[2020-06-29 12:59] LABS: EOSINOPHILS % (AUTO) 3 % (0-10); HEMATOCRIT 35 % (40-54); HEMOGLOBIN 11.9 g/dL (13.3-17.7); LYMPHOCYTES % (AUTO) 13 % (12-44); MEAN CORPUSCULAR HEMOGLOBIN 33 pg (25-34); MEAN CORPUSCULAR HGB CONC 34 g/dL (32-36); MEAN CORPUSCULAR VOLUME 95 fL (80-99); MEAN PLATELET VOLUME 8.9 fL (9.0-12.2); MONOCYTES # (AUTO) 1.3 10^3/uL (0.0-1.0); MONOCYTES % (AUTO) 16 % (0-12); NEUTROPHILS % (AUTO) 66 % (42-75); PLATELET COUNT 93 10^3/uL (130-400); WHITE BLOOD COUNT 7.8 10^3/uL (4.3-11.0)
[2020-06-29] MEDS ORDERED: NIVOLUMAB 480 MG in NS (IVPB) CANCER CENTER 100 ML IV SCH (13:45)
== END 2020-07-21 12:57 | disposition home or self-care (01) ==
LOC: ONC 12:35
PROVIDERS: ATTEND Internal Medicine Hematology & Oncology
DX: C22.0 Liver cell carcinoma (principal); K74.60 Unspecified cirrhosis of liver; K76.89 Other specified diseases of liver; I10 Essential (primary) hypertension; I85.01 Esophageal varices with bleeding; R77.2 Abnormality of alphafetoprotein; R16.1 Splenomegaly, not elsewhere classified; R18.8 Other ascites; K76.6 Portal hypertension
CPT/HCPCS: 36591; 80053; 82105; 82140; 83735; 84443; 85025; 87804; 96413; 96417; 99213